=== PATIENT | female | born 1945 | race Caucasian/White ===

== ENCOUNTER 2018-10-06 17:50 | Inpatient (IN) ==
[2018-10-06] MEDS ORDERED: *HR* Heparin 5,000 UNIT/ML VIAL IVP ONE (18:14)
[2018-10-06] MEDS ORDERED: *HR* Heparin 5,000 UNIT/ML VIAL IVP PRN ×2 (18:14)
[2018-10-06] MEDS ORDERED: Heparin 25,000 UNIT/250 ML D5W 25,000 UNIT/250 ML IV.SOLN IVC SCH (18:15)
[2018-10-06] MEDS ORDERED: *HR* Ticagrelor 90 MG TABLET PO ONE (18:16)
--- NOTE | 2018-10-06 18:19 | Emergency Department Note ---
Disposition Clinical Impression: ST elevation myocardial infarction (STEMI) Qualifiers: Involved coronary artery: right coronary artery Qualified Code(s): I21.11 - ST elevation (STEMI) myocardial infarction involving right coronary artery Disposition: Admitted As Inpatient Condition: Serious General Adult HPI - General Chief complaint: ED Chest Pain Stated complaint: Chest Pain Time Seen by Provider: 10/06/18 17:57 Source: patient, EMS Limitations: no limitations Nursing Notes Reviewed: Yes Vital Signs Reviewed: Yes - History of Present Illness HPI Narrative: Patient presents with chest pain and this is a combination of sharp and dull and pressure sensation which began at 3:30 and then increased in severity and is constant with radiation to the left shoulder and the back and initially did have diaphoresis. No exertional component. Does have associated lightheadedness. No pleuritic aspect. No pain or swelling of the lower extremities beyond her normal left lower extremity pain from her sciatica. She does have 2 heart stents and atrial fibrillation and does use xarelto but the last dose she took was last night. She is here with her [id number]. Social history: No . I do not find old EKGs that I can compare it to 1818 Pain Scale: 10 - Related Data Allergies Allergy/AdvReac Type Severity Reaction Status Date / Time doxycycline Allergy See Verified 10/06/18 18:12 Comments All systems ED: reviewed and negative except as stated. Past Medical History - Past Medical History Medical history: Reports: other Psychiatric history: Reports: no psych history - Social History Smoking Status: Never smoker Smokeless Tobacco Status: No Alcohol use: Reports: none Drug use: Reports: none Physical Exam CONSTITUTIONAL: Well-appearing; well-nourished; A&O X 3, in no apparent distress HEAD: Normocephalic; atraumatic EYES: PERRL, no scleral icterus NOSE: The nose is normal in appearance without rhinorrhea NECK: No JVD or distended neck veins RESP: Normal chest excursion with respiration; breath sounds clear and equal bilaterally; no wheezes, rhonchi, or rales CARD: Regular rhythm, without murmurs, rub or gallop ABD: Non-distended; non-tender, soft, without rigidity, rebound or guarding,no pulsatile mass CHEST: + pain with palpation left chest wall which does cause facial wincing SKIN: Normal for age and race; warm and dry without diaphoresis ; no apparent lesions EXTREMITIES: Pulses are 2 plus and equal times 4 extremities, she does have bilateral symmetric lower extremity, peripheral edema but there is no calf muscle pain - General Limitations: no limitations General appearance: alert, in no apparent distress Course Vital Signs Temperature 97.6 F 10/06/18 18:03 Pulse Rate 48 10/06/18 18:03 Respiratory Rate 21 10/06/18 18:03 Blood Pressure 129/106 10/06/18 18:03 O2 Sat by Pulse Oximetry 99 10/06/18 18:03 Temperature 97.6 F 10/06/18 18:03 Pulse Rate 74 10/06/18 21:55 Respiratory Rate 13 10/06/18 18:56 Blood Pressure 129/70 10/06/18 18:56 O2 Sat by Pulse Oximetry 99 10/06/18 18:56 Oxygen Delivery Oxygen Delivery Room Air Medical Decision Making - MDM Narrative Medical decision making narrative: Patient does have ill appearance, I did review the EKG as well as the pre- arrival EKG and there is ST elevation inferiorly as well as what looks like the beginning of some reciprocal change and coupled with the patient's bradycardia with a familia of 44 bpm this is concerning for inferior ischemia. When I left the room I did call Dr. Fernando Savage, the psychiatry instructor and he agrees this is concerning and we spoke about the patient at 6:06 PM. The patient will go to the Tobacco [facility] and I did go back and see her again and informed her about this. Initial heart rate was 41 bpm and the repeat heart rate is 49 bpm. We do have the crash cart the bedside. The patient does xarelto however the last dose was last night so likely this effect is mostly worn off and the patient based on my conversation with Dr. Fernando Savage, will give Plavix 300 mg by mouth Brilinta 100 mg by mouth and low-dose heparin 1820 Patient has had episodes of bradycardia in the 30s and EKG was repeated and at 6:30 PM does show increased [address] elevation inferiorly with some reciprocal change and does look like a junctional bradycardia. The patient is awaiting transfer to the catheter lab. We do have pacer pads on the patient. Her blood pressure has decreased and is now 113 systolic and she is receive a 1 L IV fluid bolus. I have checked on her multiple times. 183 - Medical Records Medical records reviewed: Yes I reviewed the patient's medical records. - Lab Data Lab results reviewed: Yes I reviewed the patient's lab results. Result diagrams: 10/06/18 18:13 10/06/18 18:13 Lab Results 10/06/18 10/06/18 10/06/18 Range/Units 18:13 18:13 18:13 WBC 7.0 (4.3-11.1) K/mcL RBC 4.73 (3.82-4.97) M/mcL Hgb 13.5 (11.5-15.4) g/dL Hct 41.9 (35.3-44.9) % MCV 88.6 (83.0-100.0) fL MCH 28.5 (28.0-33.3) pg MCHC 32.2 (31.6-35.5) g/dL RDW 14.7 H (11.5-14.5) % Plt Count 260 (140-400) K/mcL MPV 9.5 (9.4-12.4) fL Immature Gran % 0.3 (0-4) % Seg Neutrophils % 67.9 % Lymphocytes % 20.4 % Monocytes % 7.1 % Eosinophils % 3.3 % Basophils % 1.0 % Neutrophils # 4.8 (1.6-8.9) K/mcL Lymphocytes # 1.4 (0.6-4.6) K/mcL Monocytes # 0.5 (0.0-1.3) K/mcL Eosinophils # 0.2 (0.0-0.6) K/mcL Basophils # 0.1 (0.0-0.2) K/mcL PT 10.5 (9.4-12.1) Seconds INR 0.9 APTT 29.8 (26.0-36.0) Seconds Heparin Anti-Xa, Unfract 0.07 L (0.30-0.70) IU/mL Sodium 133 L (136-145) mEq/L Potassium 4.1 (3.5-5.1) mEq/L Chloride 97 L (98-107) mEq/L Carbon Dioxide 25 (23-29) mEq/L BUN 35 H (8-23) mg/dL Creatinine 1.53 H (0.60-1.20) mg/dL Est GFR ( Amer) 41 L (> 60) Est GFR (Non-Af Amer) 33 L (> 60) BUN/Creatinine Ratio 23 (6-26) Glucose 228 H (70-105) mg/dL Calculated Osmolality 291 (280-300) Calcium 9.4 (8.6-10.3) mg/dL Troponin I < 0.03 (< 0.04) ng/mL
[2018-10-06 18:34] LABS: Basophils # 0.1 K/mcL (0.0-0.2); Eosinophils # 0.2 K/mcL (0.0-0.6); Eosinophils % 3.3 %; Hematocrit 41.9 % (35.3-44.9); Hemoglobin 13.5 g/dL (11.5-15.4); Immature Granulocytes % 0.3 % (0-4); Lymphocytes # 1.4 K/mcL (0.6-4.6); Lymphocytes % 20.4 %; Mean Corpuscular HGB Conc 32.2 g/dL (31.6-35.5); Mean Corpuscular Hemoglobin 28.5 pg (28.0-33.3); Mean Corpuscular Volume 88.6 fL (83.0-100.0); Mean Platelet Volume 9.5 fL (9.4-12.4); Monocytes # 0.5 K/mcL (0.0-1.3); Monocytes % 7.1 %; Neutrophils # 4.8 K/mcL (1.6-8.9); Platelet Count 260 K/mcL (140-400); Red Blood Count 4.73 M/mcL (3.82-4.97); Red Cell Distribution Width 14.7 % (11.5-14.5); Segmented Neutrophils % 67.9 %
[2018-10-06] MEDS ORDERED: 0.9 % Sodium Chloride 1,000 ML IVC ONE (18:36)
[2018-10-06] MEDS ORDERED: Nitroglycerin 1,000 MCG/10 ML VIAL IV ONE (18:40)
[2018-10-06] MEDS ORDERED: *HR* Heparin 10,000 UNIT/10 ML VIAL ONE ×2 (18:40→20:02)
[2018-10-06] MEDS ORDERED: Heparin 1,000 UNITS/500 mL 500 ML ONE (18:40)
[2018-10-06] MEDS ORDERED: 0.9 % Sodium Chloride 1,000 ML ONE ×2 (18:40→20:03)
[2018-10-06] MEDS ORDERED: ISOVUE-370 200 ML INFUS..BTL ONE (18:40)
[2018-10-06 18:41] LABS: Heparin anti-factor XA UFH 0.07 IU/mL (0.30-0.70)
[2018-10-06] MEDS ORDERED: Verapamil 5 MG/2 ML VIAL ONE (18:41)
[2018-10-06 18:42] LABS: INR 0.9; Prothrombin Time 10.5 Seconds (9.4-12.1)
[2018-10-06 18:44] LABS: Activated Partial Thrombo Time 29.8 Seconds (26.0-36.0)
[2018-10-06 18:55] LABS: BUN/Creatinine Ratio 23 (6-26); Blood Urea Nitrogen 35 mg/dL (8-23); Calcium 9.4 mg/dL (8.6-10.3); Carbon Dioxide 25 mEq/L (23-29); Chloride 97 mEq/L (98-107); Glucose 228 mg/dL (70-105); Osmolality,Calculated 291 (280-300); Potassium 4.1 mEq/L (3.5-5.1); Sodium 133 mEq/L (136-145); Troponin I < 0.03 ng/mL (< 0.04); eGFR For Non-African Americans 33 (> 60)
[2018-10-06] MEDS ORDERED: *HR* Midazolam HCl 2 MG/2 ML VIAL ONE ×2 (19:13→19:39)
[2018-10-06] MEDS ORDERED: *HR* FentaNYL (PF) 100 MCG/2 ML VIAL ONE ×2 (19:13→19:59)
[2018-10-06] MEDS ORDERED: *HR* Atropine Sulfate 1 MG/10 ML SYRINGE ONE (19:27)
[2018-10-06] MEDS ORDERED: *HR* FentaNYL (PF) 100 MCG/2 ML VIAL IVP ONE (20:44)
[2018-10-06 23:04] LABS: Albumin 3.8 g/dL (3.5-5.7); Albumin/Globulin Ratio 1.4 (1.1-2.2); Bilirubin,Direct 0.1 mg/dL (0.0-0.2); Bilirubin,Indirect 0.6 mg/dL (0.0-1.2); Bilirubin,Total 0.7 mg/dL (0.3-1.0); Globulin 2.7 g/dL (2.4-3.5); Total Protein 6.5 g/dL (6.4-8.9); Troponin I 0.41 ng/mL (< 0.04)
[2018-10-07] MEDS ORDERED: *HR* Atropine Sulfate 1 MG/10 ML SYRINGE ONE (00:51)
[2018-10-07 01:21] LABS: Basophils % 0.5 %; Eosinophils % 0.3 %; Hematocrit 39.2 % (35.3-44.9); Hemoglobin 12.6 g/dL (11.5-15.4); Immature Granulocytes % 0.2 % (0-4); Lymphocytes # 0.8 K/mcL (0.6-4.6); Lymphocytes % 12.4 %; Mean Corpuscular HGB Conc 32.1 g/dL (31.6-35.5); Mean Corpuscular Hemoglobin 28.4 pg (28.0-33.3); Mean Corpuscular Volume 88.3 fL (83.0-100.0); Mean Platelet Volume 9.2 fL (9.4-12.4); Monocytes # 0.3 K/mcL (0.0-1.3); Monocytes % 4.4 %; Neutrophils # 5.4 K/mcL (1.6-8.9); Platelet Count 215 K/mcL (140-400); Red Blood Count 4.44 M/mcL (3.82-4.97); Red Cell Distribution Width 14.8 % (11.5-14.5); Segmented Neutrophils % 82.2 %
[2018-10-07 01:39] LABS: Chol/HDL Ratio 4.9 (0-4.9); Potassium 3.8 mEq/L (3.5-5.1)
[2018-10-07] MEDS ORDERED: 0.9 % Sodium Chloride 500 ML ONE ×2 (02:38→03:07)
[2018-10-07] MEDS ORDERED: *HR* FentaNYL (PF) 100 MCG/2 ML VIAL ONE (02:48)
[2018-10-07] MEDS ORDERED: *HR* Midazolam HCl 5 MG/5 ML VIAL IVP ONE ×2 (02:50→04:14)
[2018-10-07] MEDS: Norepinephrine 4 MG in D5% in Water 250 ML IVC SCH (02:57)
[2018-10-07] MEDS ORDERED: 0.9 % Sodium Chloride 1,000 ML ONE (02:58)
[2018-10-07] MEDS ORDERED: *HR* Heparin 10,000 UNIT/10 ML VIAL ONE (02:58)
[2018-10-07] MEDS ORDERED: Nitroglycerin 1,000 MCG/10 ML VIAL IV ONE (02:58)
[2018-10-07] MEDS ORDERED: ISOVUE-370 200 ML INFUS..BTL ONE (02:58)
[2018-10-07] MEDS ORDERED: Heparin 1,000 UNITS/500 mL 500 ML ONE (02:58)
[2018-10-07] MEDS: FentaNYL (PF) 1,000 MCG in 0.9 % Sodium Chloride 80 ML IVC SCH ×3 (03:02→17:30)
[2018-10-07 03:08] LABS: Basophils % 0.5 %; Eosinophils % 0.2 %; Hematocrit 35.5 % (35.3-44.9); Hemoglobin 11.3 g/dL (11.5-15.4); Immature Granulocytes % 0.4 % (0-4); Lymphocytes # 2.4 K/mcL (0.6-4.6); Lymphocytes % 27.6 %; Mean Corpuscular HGB Conc 31.8 g/dL (31.6-35.5); Mean Corpuscular Hemoglobin 28.3 pg (28.0-33.3); Mean Platelet Volume 9.5 fL (9.4-12.4); Monocytes # 0.6 K/mcL (0.0-1.3); Monocytes % 7.1 %; Neutrophils # 5.5 K/mcL (1.6-8.9); Platelet Count 251 K/mcL (140-400); Red Blood Count 3.99 M/mcL (3.82-4.97); Red Cell Distribution Width 14.6 % (11.5-14.5); Segmented Neutrophils % 64.2 %
--- NOTE | 2018-10-07 03:51 | Event Note ---
Addendum entered and electronically signed by Chan Rosado DO 10/07/18 04:21: Note that patient was given 7 mg of Versed and 20 mg of etomidate for sedation prior to intubation. Patient also received 2 separate 100 g pushes of fentanyl for sedation as well. Original Note: Date of Encounter: 10/07/18 Time of Encounter: 03:49 Patient reported having nausea, and then went into asystole. Patient received approximately 30 seconds of chest compressions by nursing. She did not receive any medications at that time. Patient had ROSC. Drs. Agudelo, Pablo, Lawrence at bedside. Patient would become bradycardic. Patient was given 1 mg of atropine. She responded slightly, but again became bradycardic and hypotensive. Patient was also given 20 g of epinephrine. I spoke with the mill beam fitter, Dr. Savage regarding patient's care as patient was having unstable bradycardia. He immediately came in and evaluated the patient while the catheterization lab was being assembled for placement of transvenous pacer. Patient's consciousness waxed and waned and there was concern that she did not have the ability to protect her airway. I intubated patient using Versed and fentanyl as sedation. No paralytic was used. Also placed a left internal jugular central line. Chest x-ray did not reveal any complications from the procedure. Patient was started on dopamine and levophed to maintain a map greater than 65. Levophed weaned off. There was also a right femoral hematoma from where the from oral sheath was placed. Pressure was provided at that site. Due to concern for anemia secondary to bleed, patient was transfused 1 unit emergently and has one unit available if needed. A STAT hemoglobin and hematocrit was sent. The results are not back yet. Patient to Compliance Analyst for placement of transvenous pacer. Procedures - Arterial Line Size (Gauge): 20 Technique Used: guide wire technique Post-Procedure: line sutured into place, line taped into place, dry sterile dressing placed Patient Tolerated Procedure: well, no complications Complications: none Site: left, radial Additional Comments: Dr. Bravo performed procedure under my observation with Dr. Agudelo as well - Central Line Placement Left IJ Central Line Inserted*: Yes Central Line Catheter Replacement*: Yes Central Line Insertion: emergent Procedural Pause: assemble equipment and verify supplies, perform hand hygiene Patient Placed on Monitor/Pulse Ox: Yes During the Procedure: clinician is wearing sterile gloves, cap, mask,& gown during insertion, sterile field and sterile technique are maintained Central Line Prep: Povidone-Iodine 1% Prep the Procedure Site: allow prep to dry Ultrasound Used for Placement: Yes Central Line Lumen Inserted: triple Post Procedure: sutured in place, good blood return, all ports aspirated, flushed, capped, sterile dressing applied, guide wire removed and visualized Post Procedure X-Ray: tip of catheter in good position, no pneumothorax seen Patient Tolerated Procedure: well, no complications Complications: none Name of Clinician Inserting Central Line: Dr. Chan Rosado Clinician Assisting/Completing Checklist: Dr. Agudelo Date: 10/07/18 - Intubation sedative: Versed Laryngoscope: William ET Tube Size: 7.5 ET Tube Uncuffed: No Tube Secured Location: lips (22) Tube Placement Confirmation: visualized tube passing through cords, equal breath sounds bilaterally, no breath sounds over epigastrium, confirmation by capnometry Patient Tolerated Procedure: well, no complications
[2018-10-07] MEDS ORDERED: *HR* FentaNYL (PF) 100 MCG/2 ML VIAL IVP ONE ×2 (04:15→04:16)
[2018-10-07] MEDS ORDERED: *HR* Etomidate 20 MG/10 ML AMPUL IVP ONE (04:15)
[2018-10-07] MEDS ORDERED: Artificial Tears SOLN 15 ML BOTTLE BOTH EYES PRN (05:03)
--- NOTE | 2018-10-07 05:05 | Invasive Diagnostic Lab Proc ---
Name: Ellen Jeter Date of Study: 10/07/2018 Date: 1945 Ht: 66.0in Medical Record#: [id number] Age: 73 Wt: 377.87lb Gender: Female BSA: 2.62 Order #: [id number] BMI: 61.02 Physicians Procedure Physician: Fernando Savage MD Referring MD: Referring MD: Staff Name Position Time In Torsten Sergo RN Monitor 04:15 AM Cary Mccann RN Evidence Specialist 04:15 AM Nicole Do RT (R) Scrub 04:15 AM Procedures Performed Procedure INS/RPL TEMP PM LEAD/CATH;SNGL Pre-Procedure Checklist Informed consent is complete signed and on chart. H&P is on chart. ID band is on and ID verified with patient. Patient NPO for procedure The procedure was described for the patient and questions were answered. Blood Pressure: 105/81 ECG is on chart. Rhythm: Sinus Bradycardia Plan of Care Patient will tolerate the procedure without complications. Adequate level of comfort will be maintained. Hemodynamics will remain stable Patient will recover from procedure without complications. Respiratory function will be maintained. Cardiac rhythm will remain stable. Patient temperature will be maintained. Patient and/or family have verbalized understanding of the procedure. Patient Education Developmentally Appropriate for Age: No Education Needs: Procedure Note: Pt intubated. Intravenous Access Time IV Size Location DC'd Fluid/Drip Rate Units RN Lt Jugular 20g 1 1/4" Patent On Arrival Rt Antecubital 20g 1 1/4" Patent On Arrival Lt Antecubital Allergies doxycycline Vital Signs Time BP (mmHg) HR (bpm) O2 Sat. RR (bpm) LOC 04:18 AM / % 0 = No reflexes elicited 04:18 AM / % 0 = No reflexes elicited 04:41 AM 115 / 45 97 95 % 19 04:18 AM 97 / 47 93 97 % 48 04:21 AM 101 / 47 93 97 % 18 04:26 AM 98 / 56 92 93 % 14 04:31 AM 97 / 53 92 96 % 18 04:36 AM 106 / 49 85 93 % 20 Procedural Medications Time Medication Dose Units Method Given By 04:18 AM versed 2 mg/hr Intravenous 04:19 AM fentanyl 150 mcg/hr Intravenous 04:19 AM Dopamine 10 mcg/kg/min Intravenous 04:23 AM Lidocaine 2% 1 ml Subcutaneous Fernando Savage MD Hermilo Score Preprocedure Postprocedure Activity 0- Unable to move extremities or lift head Activity 0- Unable to move extremities or lift head Circulation 2- SBP +/= 20 points of pre-anesthetic level Circulation 2- SBP +/= 20 points of pre-anesthetic level Consciousness 0- Non-responsive Consciousness 0- Non-responsive O2 Saturation 1- Needs O2 inhalation to maintain O2 saturation of 90% O2 Saturation 1- Needs O2 inhalation to maintain O2 saturation of 90% Respiratory 0- Apneic requires ventilator or assisted respiration Respiratory 0- Apneic requires ventilator or assisted respiration Total Score 3 Total Score 3 Contrast Agent: Isovue Diagnostic Contrast: 0 ml Fluoro Dose: 1 mGy Procedure Log Time Note Enter By 04:15 AM Pt arrived to public works laborer 1 at 04:15 [facility] 04:15 AM Sergo Sarmiento RN Position: Monitor Time in: 04:15 [facility] 04:15 AM Cary Mccann RN Position: Evidence Specialist Time in: 04:15 [facility] 04:15 AM Nicole Do RT (R) Position: Scrub [facility] 04:15 AM Vitals capture started with the following parameters, Patient=Adult, Interval=5 min, Initial Nptcfnmk=970 mmHg, Deflation Rate=3 mmHg, Cuff placed on Right Arm 04:18 AM Physician [facility] 04:18 [facility] AM Meet and greet completed [facility] 04:18 AM Sign in performed according to hospital policy. Informed consent was obtained. [facility] 04:18 AM Procedure [email or web address] Time: 04:18 Patient comfortable and pain free: Yes jcallan 04:18 AM Time: 04:18LOC: 0 = No reflexes elicited [email or web address] 04:18 AM HR=93 bpm, NIBP=97/47 mmhg, SpO2=97.0 %, Resp=48 B/min, Comment=nsr 04:19 AM Patient arrived at 04:18 with versed Intravenous drip @ 2 mg/hr [email or web address] 04:19 AM Patient arrived at 04:19 with fentanyl Intravenous drip @ 150 mcg/hr [email or web address] 04:20 AM Patient arrived at 04:19 with Dopamine Intravenous drip @ 10 mcg/kg/min [email or web address] 04:21 AM HR=93 bpm, GTQV=789/47 mmhg, SpO2=97.0 %, Resp=18 B/min, Comment=nsr 04:22 AM Hair removed from procedure site in procedure lab using clippers. Right neck prepped with Chloraprep by Nicole Do ([place]), then patient was draped. Skin intact. jc 04:23 AM Time out was performed according to hospital policy. Conscious sedation and anesthesia was achieved (see medication log with in this report above) jc 04:24 AM Time: 04:23 1 ml Lidocaine 2% to right jugular Subcutaneous Given by Fernando Savage MD 04:26 AM Micro-Introducer Kit utilized for sheath placement jc 04:26 AM HR=92 bpm, NIBP=98/56 mmhg, SpO2=93.0 %, Resp=14 B/min, Comment=nsr 04:29 AM Access obtained by percutaneous puncture. 6Fr 11cm [facility] Ciro Ultimum sheath placed in right jugular vein. [id number] 04:30 AM PstProc:Bard Bipolar Pacing Catheter Temp pacer inserted into right jugular vein [email or web address] 04:31 AM PstProc: Sheath(s) sutured in due to Temporary Pacer. 04:31 AM HR=92 bpm, NIBP=97/53 mmhg, SpO2=96.0 %, Resp=18 B/min, Comment=nsr 04:34 AM Time: 04:18LOC: 0 = No reflexes elicited jc:34 AM Time: 04:18 Patient comfortable and pain free: Yes [facility] 04:34 AM PstProc: Temp pacer on. jc 04:35 AM PstProc: Temp pacer turned on, rate 60 ppm, mA 2.0, jcallihan 04:36 AM PstProc: Pacer is inserted at 32 cm [facility] 04:36 AM HR=85 bpm, ZOUT=842/49 mmhg, SpO2=93.0 %, Resp=20 B/min, Comment=nsr 04:36 AM Procedure completed at 04:36 10/07/2018 [email or web address] 04:40 AM Sign out completed: Radiation Dose 9.15 mGy, 1.35 Gy/cm2 Fluoro Time: 0.3 Isovue 370 - 200ml contrast 0 ml given by Fernando Savage MD. Complications: None. The patient was discharged out of the phlebotomist lab assistant in stable condition. Sedation minutes 18. Cardiac Rehab Consult needed: Yes. Confirmed administered medications: Yes [email or web address] 04:41 AM HR=97 bpm, OGUC=936/45 mmhg, SpO2=95.0 %, Resp=19 B/min, Comment=nsr 04:42 AM Estimated Blood Loss: minimal jcallihan 04:43 AM Post ECG NSR [email or web address] 04:43 AM Post Blood Pressure 115/45 [email or web address] 04:43 AM 04:43 Post Pulses Bilateral DP 2+ [email or web address] 04:43 AM 04:43 Post Pulses Bilateral radial 2+ [email or web address] 04:43 AM Education needs Procedure, Plan of Care, and Responsibilities of Patient in Care [email or web address] 04:43 AM Learning barriers :Sedated jcallihan 04:43 AM Education Methods Verbal jcallihan 04:44 AM Education evaluation Not ready to learn jcallihan 04:44 AM Site status No bleeding/hematoma - Rt jugular as reported by Nicole Do RT (R) at 04:44 [email or web address] 04:44 AM Opsite applied jcallihan 04:44 AM Report given to Toma RENE Pt taken to ICU Room #1. 04:44 [email or web address] 04:44 AM Complications: None [email or web address] 04:44 AM Patient out of room: 04:44 jcallihan 04:46 AM Sign in performed according to hospital policy. Informed consent was obtained. [facility] Complications Complication None None Hemodynamics Post Procedure Information Blood Pressure: 115/45 mmHg Rhythm: NSR Post procedural instructions were given Closure Device Time Device Success/Fail Manual Compression Site Checks Time Location Status Staff Sheath In? Note 04:44 AM Rt jugular No bleeding/hematoma Nicole Do RT (R) Pulses Time Site Pre-Procedure Post-Procedure Note Bilateral radial 2+ Bilateral DP 2+ 4:43:00 AM Bilateral DP 2+ 4:43:00 AM Bilateral radial 2+ Updated by Sergo Sarmiento RN on 10/07/2018 4:53:57 AM electronically signed on 10/07/2018 4:56:09 AM with status of Final
[2018-10-07 05:19] LABS: ABG Base Excess -3 mEq/L (-2 to 3); ABG HCO3 24 mEq/L (21-27); ABG Oxygen Saturation 93 % (95-98); ABG PCO2 50 mmHg (35-45); ABG PH 7.29 pH Units (7.32-7.45); ABG PO2 76 mmHg (85-104); ABG TCO2 26 mEq/L (20-26); Blood Gas Modality PRVC; Blood Gas PEEP 5 cm H2O; Blood Gas Respiration Rate 14; Blood Gas VT 450 cc
--- NOTE | 2018-10-07 06:45 | Pulmonology Consult Note ---
<Chino Diehl S - Last Filed: 10/07/18 12:20> Date of Encounter: 10/07/18 Time of Encounter: 08:19 Assessment and Plan (1) ST elevation myocardial infarction (STEMI) Current Visit: Yes Status: Acute Pt presented overnight and was taken emergently to the cath lab manager where she was found to have 100% stenosis of the RCA, 80% stenosis of the mid circumflex - she had an episode of asystole, required ~30 seconds of chest compressions and was given 1x epinephrine - the pt was then intubated for inability to protect her airway - pt does have hx 2 previous stents CXR showed Appropriate endotracheal tube positioning, appropriate percutaneous trans venous single lead pacemaker positioning, Fluctuating basilar atelectasis, small left effusion. ABG this morning: pH 7.34, pCO2 44, pO2 127, HCO3 24 Vent settings: RR 16, FiO2 50, PEEP 5, TV [address] elevation inferiorly - she was given a dose of plavix and brillenta followed by low dose heparin protocol in the ER Plan: - palliative consulted for goals of care - cardiology consulted, awaiting reocmmendations pt paced at 80bpm, any time it goes lower than this there are spiked on T's inserted to the right - continue lopressor, aspirin, plavix and lipitor - pt currently on levophed 5mcg for hypotension - continue sedation with versed and fentanyl - daily ABG - ECHO pending Qualifiers: Involved coronary artery: right coronary artery Qualified Code(s): I21.11 - ST elevation (STEMI) myocardial infarction involving right coronary artery (2) Goals of care, counseling/discussion Current Visit: Yes Status: Acute Spoke with granddaughter at bedside with attending. She states her father is the MPOA but he is in [place] for work and will not be able to make it here. The grandmother apperently does have advanced directives at home, however, they are not sure where they are. Granddaughter does state that the pt would like to be a DNR but isn't sure about her thoughts regarding short-term intubation. Did inform the granddaughter that the pt had an episode of asystole overnight and that she required compressions, granddaughter said no further compressions for the pt. She is also unsure of how aggressive the pt will want to be regarding the pacing and cardiology recommendations. Palliative care has been consulted, spoke to Halima Khanna ACID SUPERVISOR who will be in later to see the patient. For now CODE STATUS will be DNR-CCA. (3) Morbid obesity Current Visit: Yes Status: Acute chronic, BMI 59 (4) Elevated troponin Current Visit: Yes Status: Acute 0.3 --> .41 --> 3.01 - likely type 1 (5) TATYANA (acute kidney injury) Current Visit: Yes Status: Acute Creatinine 1.53 on admission, currently 1.34 with morning labs. Improving. Continue I&O, pretty cath. (6) CAD (coronary artery disease) Current Visit: Yes Status: Acute Continue aspirin, lipitor, plavix, and lopressor as per cardiology recommendations. Qualifiers: Coronary Disease-Associated Artery/Lesion type: unspecified vessel or lesion type [place] vs. transplanted heart: unspecified whether [place] or transplanted heart Associated angina: angina presence unspecified Qualified Code(s): I25.10 - Atherosclerotic heart disease of [place] coronary artery without angina pectoris (7) DVT prophylaxis Current Visit: Yes Status: Acute scd (8) A-fib Current Visit: No Status: Chronic Pt has hx of a fib, on xarelto Qualifiers: Atrial fibrillation type: unspecified Qualified Code(s): I48.91 - Unspecified atrial fibrillation History of Present Illness Consult date: 10/07/18 Requesting physician: Chino Diehl Reason for consult: other (critical care, ventilator management) Chief complaint: STEMI History of present illness: Mrs. Jeter is a 73yo female with PMH of CAD, a fib on eliquis, and morbid obesity who was admitted overnight over a STEMI. She initially presented as per the ED notes with chest pain that was sharp and dull, pressure like and began around 0330 AM, which increased in severity. Radiation to the left shoulder/back. She reported diaphoresis to ER physician. She has a past hx of 2 stents and is on xarleto for a fib. She was found to have a right inferior DC as evidenced by EKG and was brought emergently to the cath lab manager for stent to the RCA. She was then brought to ICU and was found to be in asystole and received ~30 seconds of chest compressions and one round of epinephrine. She had ROSC but was lately intubated for inability to control airway and waxing and waning mental status. She also had to be paced overnight and had a temporary pacer inserted. She is seen at bedside this morning and is still intubated. Family is at bedside and they state she would want to be a DNR and have no further compressions given. She has advanced directives but they are at home and the family is unsure of the exact specifics. The patient appears comfortable and is sedated. ROS in unobtainable due to mental status. All information is gathered from ER documents, ICU overnight resident, nursing staff. Past Med Surg Social Fam HX - Past Medical History Medical history: other Additional medical history: home o2 but doesn't know why Psychiatric history: no psych history - Past Surgical History Surgical History: angioplasty/stent, other, vascular surgery Additional surgical history: D&C - Social History Smoking Status: Never smoker Smokeless Tobacco Status: No Alcohol use: none Drug use: none Medications and Allergies Allergy/AdvReac Type Severity Reaction Status Date / Time doxycycline Allergy See Verified 10/06/18 18:12 Comments ROS unobtainable: due to endotracheal tube All Systems: The remainder of the systems were reviewed and are negative Physical Examination Vital Signs: Vital Signs, Last 4 Hours Temp Pulse Resp BP Pulse Ox Pulse Ox 10/07/18 06:00 73 16 135/60 99 10/07/18 05:25 19 142/63 96 10/07/18 05:00 80 16 99/50 98 10/07/18 04:39 70 10/07/18 04:00 97.1 F L 109 16 98/68 97 10/07/18 03:19 18 99 Ventilator Settings Ventilator Settings: Ventilator Settings, Last 8 Hours Ventilator Tidal Volume 450 Setting Ventilator Tidal Volume 450 Setting Ventilator Tidal Volume 450 Setting Ventilator Tidal Volume 450 Setting Ventilator Tidal Volume 450 Setting Ventilator Respiratory Rate 16 Setting Ventilator Respiratory Rate 16 Setting Ventilator Respiratory Rate 14 Setting Ventilator Respiratory Rate 16 Setting Ventilator Respiratory Rate 14 Setting Actual Respiratory Rate 16 Actual Respiratory Rate 16 Actual Respiratory Rate 16 Actual Respiratory Rate 18 Positive End Expiratory 5 Pressure Positive End Expiratory 5 Pressure Positive End Expiratory 5 Pressure Positive End Expiratory 5 Pressure Positive End Expiratory 5 Pressure Peak Inspiratory Airway 19 Pressure Peak Inspiratory Airway 18 Pressure Peak Inspiratory Airway 19 Pressure Peak Inspiratory Airway 20 Pressure Results - Laboratory Findings CBC and BMP: 10/07/18 02:25 10/07/18 01:00 ABG ABG pH 7.29 pH Units (7.32-7.45) L 10/07/18 05:15 ABG pCO2 50 mmHg (35-45) H 10/07/18 05:15 ABG pO2 76 mmHg (85-104) L 10/07/18 05:15 ABG O2 Saturation 93 % (95-98) L 10/07/18 05:15 PT/INR, D-dimer PT 10.5 Seconds (9.4-12.1) 10/06/18 18:13 Abnormal lab findings: Abnormal lab results Hgb 11.3 g/dL (11.5-15.4) L 10/07/18 02:25 RDW 14.6 % (11.5-14.5) H 10/07/18 02:25 Heparin Anti-Xa, Unfract 0.07 IU/mL (0.30-0.70) L 10/06/18 18:13 ABG pH 7.29 pH Units (7.32-7.45) L 10/07/18 05:15 ABG pCO2 50 mmHg (35-45) H 10/07/18 05:15 ABG pO2 76 mmHg (85-104) L 10/07/18 05:15 ABG O2 Saturation 93 % (95-98) L 10/07/18 05:15 ABG Base Excess -3 mEq/L (-2 to 3) L 10/07/18 05:15 BUN 33 mg/dL (8-23) H 10/07/18 01:00 Creatinine 1.34 mg/dL (0.60-1.20) H 10/07/18 01:00 Est GFR ( Amer) 47 (> 60) L 10/07/18 01:00 Est GFR (Non-Af Amer) 39 (> 60) L 10/07/18 01:00 Glucose 187 mg/dL (70-105) H 10/07/18 01:00 POC Glucose 190 mg/dL (70-99) H 10/06/18 21:33 Alkaline Phosphatase 162 Units/L (34-104) H 10/06/18 21:52 Troponin I 3.01 ng/mL (< 0.04) H* 10/07/18 02:25 LDL Cholesterol, Calc 131 mg/dL (0-99) H 10/07/18 01:00 - Clinical Findings Intake & Output: Intake & Output 10/06/18 10/06/18 10/07/18 15:59 23:59 07:59 Intake Total 347 / 347 Output Total 250 / 250 1100 / 1100 Balance -250 / -250 -753 / -753 Weight 171.004 kg 167.6 kg Consult Discharge Plan - Plan Referrals: NONE,PCP [Primary Care Provider] - <Marco Antonio Thomas W - Last Filed: 10/07/18 18:59> Date of Encounter: 10/07/18 All Systems: The remainder of the systems were reviewed and are negative Physical Examination Vital Signs: Vital Signs, Last 4 Hours Temp Pulse Resp BP Pulse Ox 10/07/18 17:59 70 16 103/53 100 10/07/18 17:05 16 103/53 99 10/07/18 17:00 70 16 122/60 100 10/07/18 16:00 98 F 70 16 127/54 100 10/07/18 15:21 16 122/60 100 10/07/18 15:00 98.0 F 70 16 120/54 100 Ventilator Settings Ventilator Settings: Ventilator Settings, Last 8 Hours Ventilator Tidal Volume 450 Setting Ventilator Tidal Volume 450 Setting Ventilator Tidal Volume 450 Setting Ventilator Tidal Volume 450 Setting Ventilator Tidal Volume 450 Setting Ventilator Tidal Volume 450 Setting Ventilator Tidal Volume 450 Setting Ventilator Tidal Volume 450 Setting Ventilator Tidal Volume 450 Setting Ventilator Tidal Volume 450 Setting Ventilator Tidal Volume 450 Setting Ventilator Tidal Volume 450 Setting Ventilator Respiratory Rate 16 Setting Ventilator Respiratory Rate 16 Setting Ventilator Respiratory Rate 16 Setting Ventilator Respiratory Rate 16 Setting Ventilator Respiratory Rate 16 Setting Ventilator Respiratory Rate 16 Setting Ventilator Respiratory Rate 16 Setting Ventilator Respiratory Rate 16 Setting Ventilator Respiratory Rate 16 Setting Ventilator Respiratory Rate 16 Setting Ventilator Respiratory Rate 16 Setting Ventilator Respiratory Rate 16 Setting Actual Respiratory Rate 16 Actual Respiratory Rate 16 Actual Respiratory Rate 16 Actual Respiratory Rate 16 Actual Respiratory Rate 16 Actual Respiratory Rate 16 Actual Respiratory Rate 16 Actual Respiratory Rate 18 Actual Respiratory Rate 16 Actual Respiratory Rate 16 Actual Respiratory Rate 16 Actual Respiratory Rate 16 Positive End Expiratory 5 Pressure Positive End Expiratory 5 Pressure Positive End Expiratory 5 Pressure Positive End Expiratory 5 Pressure Positive End Expiratory 5 Pressure Positive End Expiratory 5 Pressure Positive End Expiratory 5 Pressure Positive End Expiratory 5 Pressure Positive End Expiratory 5 Pressure Positive End Expiratory 5 Pressure Positive End Expiratory 5 Pressure Positive End Expiratory 5 Pressure Peak Inspiratory Airway 19 Pressure Peak Inspiratory Airway 20 Pressure Peak Inspiratory Airway 20 Pressure Peak Inspiratory Airway 20 Pressure Peak Inspiratory Airway 20 Pressure Peak Inspiratory Airway 22 Pressure Peak Inspiratory Airway 22 Pressure Peak Inspiratory Airway 19 Pressure Peak Inspiratory Airway 24 Pressure Peak Inspiratory Airway 23 Pressure Peak Inspiratory Airway 21 Pressure Peak Inspiratory Airway 22 Pressure Results - Laboratory Findings CBC and BMP: 10/07/18 02:25 10/07/18 01:00 ABG ABG pH 7.34 pH Units (7.32-7.45) 10/07/18 07:47 ABG pCO2 44 mmHg (35-45) 10/07/18 07:47 ABG pO2 127 mmHg (85-104) H D 10/07/18 07:47 ABG O2 Saturation 99 % (95-98) H 10/07/18 07:47 PT/INR, D-dimer PT 10.5 Seconds (9.4-12.1) 10/06/18 18:13 Abnormal lab findings: Abnormal lab results Hgb 11.3 g/dL (11.5-15.4) L 10/07/18 02:25 RDW 14.6 % (11.5-14.5) H 10/07/18 02:25 Heparin Anti-Xa, Unfract 0.07 IU/mL (0.30-0.70) L 10/06/18 18:13 ABG pO2 127 mmHg (85-104) H D 10/07/18 07:47 ABG O2 Saturation 99 % (95-98) H 10/07/18 07:47 BUN 33 mg/dL (8-23) H 10/07/18 01:00 Creatinine 1.34 mg/dL (0.60-1.20) H 10/07/18 01:00 Est GFR ( Amer) 47 (> 60) L 10/07/18 01:00 Est GFR (Non-Af Amer) 39 (> 60) L 10/07/18 01:00 Glucose 187 mg/dL (70-105) H 10/07/18 01:00 POC Glucose 206 mg/dL (70-99) H 10/07/18 10:52 Alkaline Phosphatase 162 Units/L (34-104) H 10/06/18 21:52 Troponin I 3.01 ng/mL (< 0.04) H* 10/07/18 02:25 LDL Cholesterol, Calc 131 mg/dL (0-99) H 10/07/18 01:00 - Clinical Findings Intake & Output: Intake & Output 10/07/18 10/07/18 10/07/18 07:59 15:59 23:59 Intake Total 362 / 362 120 / 120 146 / 146 Output Total 1225 / 1225 300 / 300 Balance -863 / -863 -180 / -180 146 / 146 Weight 167.6 kg - Attending Attestation I examined this patient and my medical decision-making was reviewed with the Resident Physician. I agree with the documented findings, disposition and leo atment plan as described except to the extent set forth below. We independently had [id number] contact with the patient I spent 33min of Critical Care time with this patient. It involved decision making of high complexity to assess, manipulate, and support vital organ system failure and/or to prevent further life threatening deterioration of the patient's condition. The time involved in the performance of separately reportable procedures was not counted toward critical care time. Patient seen and examined at bedside Labs, radiology, chart personally reviewed. Management was reviewed during multidisciplinary critical care rounds. CAPACITY PLANNING MANAGER: Patient is sedated on vent she had altered mental status likely is going to hypotension prior to procedure we will of sedation as clinically stable at this time she is not a candidate for spontaneous awake trial because of active cardiac ischemia and shock Pulm: acute Hypoxic hypercapnic respiratory failure likely secondary to cardiogenic pulmonary edema have adjusted her ventilator settings to improve gas exchange/minute ventilation because of respiratory acidosis. She is not a candidate for spontaneous breathing trial at this time but we will monitor daily Cards: Acute STEMI inferior wall DC status post PCI cardiology following complicated by cardiogenic shock secondary to bradycardia requiring transvenous pacing. Repeat echocardiogram pending appreciate cardiology managing these aspects GI: Continue GI prophylaxis Nutrition: Nothing by mouth for now Renal: UOP Monitored, Cont to Trend sCr and monitor Electrolytes. ID: No clear evidence of infection at this time but will continue to monitor closely she is at high risk for pneumonia Heme/Onc: Mechanical DVT prophylaxis because of recent hematoma continue to monitor H&H Endo: Glucose Monitored Integ/MSK: Skin Care per routine ICU Nursing Protocol to prevent ulcers. Lines: All lines examined without evidence of infection : Dispo: Remain in ICU for critical illness CODE: Patient is DNAR is unclear if she had clearly identified herself as DO NOT INTUBATE prior to being intubated yesterday and this was not addressed prior to intubation with the patient family is attempting to gather her advanced directives from home however they are clear that she did not want to undergo CPR and we have changed her CODE STATUS accordingly we have also consulted palliative care for ongoing goals of care discussion prognosis is guarded
[2018-10-07 07:54] LABS: ABG Base Excess -2 mEq/L (-2 to 3); ABG HCO3 24 mEq/L (21-27); ABG Oxygen Saturation 99 % (95-98); ABG PCO2 44 mmHg (35-45); ABG PH 7.34 pH Units (7.32-7.45); ABG PO2 127 mmHg (85-104); ABG TCO2 25 mEq/L (20-26); Blood Gas Modality AF; Blood Gas PEEP 5 cm H2O; Blood Gas Respiration Rate 16; Blood Gas VT 450 cc
[2018-10-07] MEDS ORDERED: *HR* Norepinephrine 4 MG/4 ML VIAL IVC ONE (08:26)
[2018-10-07] MEDS ORDERED: D5% in Water 250 ML IV BAG IV ONE (08:26)
[2018-10-07] MEDS ORDERED: *HR* EPINEPHrine 1 MG/10 ML SYRINGE IVP ONE (08:26)
[2018-10-07] MEDS ORDERED: *HR* Atropine Sulfate 1 MG/10 ML SYRINGE IV ONE (08:26)
[2018-10-07] MEDS ORDERED: Perflutren Lipid Microsphere 1.3 ML in 0.9 % Sodium Chloride 8.7 ML IVP ONE (08:57)
[2018-10-07] MEDS ORDERED: Perflutren Lipid Microsphere 2 ML VIAL ONE (09:02)
--- NOTE | 2018-10-07 09:47 | Cardiology Progress Note ---
Date of Encounter: 10/07/18 Time of Encounter: 09:00 Assessment and Plan (1) ST elevation myocardial infarction (STEMI) Current Visit: Yes Status: Acute Inferior ST elevation [place] status post UMA to proximal right coronary artery. Ejection fraction 40-45% on echo with mild right ventricular hypokinesis. Continue aspirin 81 mg daily, Plavix 75 mg daily, high intensity statin. Beta marcy on hold because of bradycardia. Qualifiers: Involved coronary artery: right coronary artery Qualified Code(s): I21.11 - ST elevation (STEMI) myocardial infarction involving right coronary artery (2) Bradycardia Current Visit: Yes Status: Acute Bradycardia in the setting of right coronary stenosis. Requiring temporary pacemaker. Continue to pace at 70/m. Avoid AV vijay blocking agents (3) Acute systolic CHF (congestive heart failure), NYHA class 3 Current Visit: Yes Status: Acute Chest x-ray shows mild congestion. Patient with acute systolic CHF. IV Lasix 20 mg daily, strict I and O. (4) Respiratory failure requiring intubation Current Visit: Yes Status: Acute Chest x-ray shows mild congestion. Patient with acute systolic CHF. IV Lasix 20 mg daily, strict I and O. Pulmonary consultation for vent management (5) Paroxysmal A-fib Current Visit: Yes Status: Acute On Xarelto from home. Recommended IV heparin to lower limit of therapeutic PTT, with close monitoring of hemoglobin. No metoprolol as patient is bradycardic Discussion w patient/family: The assessment and plan as outlined above was discussed with the patient and/or family members who expressed understanding and agreement. All questions were answered. Thank you for involving us in the care of your patient. Please call with any questions. Subjective Principal diagnosis: STEMI Interval history: 73-year-old morbidly obese female with history of CAD, paroxysmal fibrillation, admitted last night for inferior wall ST elevation [place], s/post-UMA to proximal RCA. Residual 60-70% lesion in the distal right coronary artery, and 80% mid left circumflex stenosis. She had intermittent episodes of bradycardia last night and also severe vagal reaction during hemostasis for groin hematoma. She is status post temporary pacemaker via right IJ. She was also intubated Objective Vital Signs, Last 4 Hours Temp Pulse Resp BP Pulse Ox 10/07/18 09:00 80 16 130/69 98 10/07/18 08:00 97.6 F 80 16 132/70 98 10/07/18 07:30 80 03/02/19 07:10 16 132/70 99 10/07/18 07:00 80 16 124/68 98 10/07/18 06:59 97.6 F 10/07/18 06:00 73 16 135/60 99 General: Other (Intubated and sedated) HEENT: Atraumatic Neck: Other (Right IJ catheter in place) Cardiac: Normal S1 and S2, Other (Paced rhythm) Lungs: No Wheeze, Rales, Rhonchi Neuro: Other (See dictated) Abdomen: Soft, Other (Right groin ecchymosis but soft) Musculoskeletal: No Chest Wall Tenderness Extremities: No Edema Results 10/07/18 02:25 10/07/18 01:00 Lab Results 10/06/18 10/06/18 10/06/18 18:13 18:13 18:13 WBC 7.0 Hgb 13.5 Hct 41.9 Plt Count 260 INR 0.9 APTT 29.8 Sodium 133 L Potassium 4.1 Chloride 97 L Carbon Dioxide 25 BUN 35 H Creatinine 1.53 H Glucose 228 H Calcium 9.4 Total Bilirubin AST ALT Alkaline Phosphatase Troponin I < 0.03 10/06/18 10/07/18 10/07/18 21:52 01:00 01:00 WBC 6.5 Hgb 12.6 Hct 39.2 Plt Count 215 INR APTT Sodium 138 Potassium 3.8 Chloride 103 Carbon Dioxide 24 BUN 33 H Creatinine 1.34 H Glucose 187 H Calcium 9.0 Total Bilirubin 0.7 AST 17 ALT 11 Alkaline Phosphatase 162 H Troponin I 0.41 H* 10/07/18 10/07/18 02:25 02:25 WBC 8.5 Hgb 11.3 L Hct 35.5 Plt Count 251 INR APTT Sodium Potassium Chloride Carbon Dioxide BUN Creatinine Glucose Calcium Total Bilirubin AST ALT Alkaline Phosphatase Troponin I 3.01 H* Consult Discharge Plan - Plan Referrals: NONE,PCP [Primary Care Provider] -
[2018-10-07] MEDS: Chlorhexidine Rinse 15 ML MOUTHWASH MM SCH ×2 (10:00→20:54)
[2018-10-07] MEDS: Pantoprazole 40 MG VIAL IVP SCH (10:00)
[2018-10-07] MEDS: Artificial Tears SOLN 15 ML BOTTLE BOTH EYES SCH ×4 (10:02→20:54)
[2018-10-07] MEDS: Aspirin 81 MG TAB.CHEW PO SCH (13:16)
--- NOTE | 2018-10-07 13:42 | Palliative - Consult Note ---
Date of Encounter: 10/07/18 Time of Encounter: 13:30 - Assessment and Plan (1) Generalized pain Current Visit: Yes Status: Acute Assessment and plan: Remains on Fentanyl drip per ICU protoco, currently at 100mcg/hr. She appears comfortable. Continue and monitor. (2) Anxiety Current Visit: Yes Status: Acute Assessment and plan: Midolazam drip per ICU protocol. Currently at 4mg/hr. MOnitor (3) Goals of care, counseling/discussion Current Visit: Yes Status: Acute Assessment and plan: Goals of care meeting with patient Jade hui ([id number]), her , Clayton, and the patient's primary POA - son Cosme who was on speakerphone, as he resides in [place]. Cosme's also listened by speakerphone. Cosme is quite ill and unable to travel at this time. Patients in mid August, after a stay here in the ICU. He was liberated from ventilator and a few [facility]. Family discusses still grieving his loss. They state that patient has POA/living will at home - they have been asked to bring in when possible. We do not have those on file in her medical record here, however, all family present state that son is POA. Family also states that she has some form of DNR, but not sure what level she is. Cardiology has been by to speak with family, and I updated Cosme via telephone. She has already been changed to DNR-Arrest, and family in agreement with maintaining. Since patient has already had a cath/stent, and has been intubated, patient son and granddaughter agree that other aggressive care will continue at this time to allow chance for recovery. Son is hoping to be able to travel this was soon, but very ill at this time. Palliative care will continue to follow clinical course and lend supportive as needed. They did ask that they be the only ones to make decisions in patient's care - there are many extended family members, and they do not want them to weigh in on major decisions to be made. (4) ST elevation myocardial infarction (STEMI) Current Visit: Yes Status: Acute Assessment and plan: Cardiology following closely. D/W Dr. Wetzel this am. Qualifiers: Involved coronary artery: right coronary artery Qualified Code(s): I21.11 - ST elevation (STEMI) myocardial infarction involving right coronary artery Palliative-CN HPI - Data of Consult Consult date: 10/07/18 Requesting Physician: Fernando Savage MD Primary Care Provider: PCP NONE - Consult Narrative History of present illness: Ms. Jeter is a 73 year old female who came to ED with c/o chest pain radiating to left shoulder, back and diaphoresis. Symptoms initially started at 1530 yesterday and worsened. She has cardiac hisotry with 2 previous stents. She was foung to have right inferior LA and was urgently taken to [facility]. RCA was 100% blockes and drug eluding stent was placed. Information taken from chart and by granddaughter at bedside. Granddaughter states she did speak with her on phone at [phone] last night, and she was feeling better with no complaints. During the night, she did c/o nausea and went asystole, with ROSC after about 30 seconds of compressions and epinephrine. Her mental status was a ltered, so she was intubated and placed on vent for protection. Temporary pacemaker was placed as well for bradycardia. She has other medical history of afib (on Xarelto), obesity. Upon my visit, pt is sedated and on ventilator with family at bedside. Appears in no distress. On Fentanyl/Versed for sedation while intubated. Cardiology has recently been by to speak with family. Palliative care team has already met this family, as we participated in the patient's care last month. CC: Fernando Savage MD - Time Spent with Patient Time: Total time spent is greater than 50% in coordination of care (as documented) at patient's floor/unit and/or counseling patient: Time with patient: 60 minutes Past Med Surg Social Fam HX - Past Medical History Medical history: other Additional medical history: home o2 but doesn't know why Psychiatric history: no psych history - Past Surgical History Surgical History: angioplasty/stent, other, vascular surgery Additional surgical history: D&C - Social History Smoking Status: Never smoker Smokeless Tobacco Status: No Alcohol use: none Drug use: none Medications and Allergies Allergy/AdvReac Type Severity Reaction Status Date / Time doxycycline Allergy See Verified 10/06/18 18:12 Comments ROS unobtainable: due to endotracheal tube Palliative Care-Exam - Constitutional Vitals: Temp Pulse Resp BP Pulse Ox 97.6 F 70 16 110/55 100 10/07/18 12:00 10/07/18 13:00 10/07/18 13:00 10/07/18 13:00 10/07/18 13:00 General appearance: Present: no acute distress - Head Head Exam: Present: normal inspection, normocephalic - Respiratory Additional comments: Breath sounds course. Anterior lung oliva clear to auscultation. Remains on vent - 50% FiO2 - PEEP 5. - Cardiovascular Cardiovascular exam: Present: +S1, +S2 Additional comments: Temporary pacemaker in place - GI/Abdominal Exam GI/Abdominal exam: Present: normal bowel sounds, soft - Extremities Exam Extremities exam: Present: normal inspection Additional comments: Bilateral lower extremities cool to touch - Neurological Exam Additional comments: Sedated on ventilator - Skin Skin exam: Present: dry, pallor, warm Internal Medicine - CN: Reslt - Labs CBC & Chem 7: 10/07/18 02:25 10/07/18 01:00 Labs: Short CBC 10/06/18 10/07/18 10/07/18 Range/Units 18:13 01:00 02:25 WBC 7.0 6.5 8.5 (4.3-11.1) K/mcL Hgb 13.5 12.6 11.3 L (11.5-15.4) g/dL Hct 41.9 39.2 35.5 (35.3-44.9) % Plt Count 260 215 251 (140-400) K/mcL Neutrophils # 4.8 5.4 5.5 (1.6-8.9) K/mcL BMP 10/06/18 10/07/18 18:13 01:00 Sodium 133 L 138 Potassium 4.1 3.8 Chloride 97 L 103 Carbon Dioxide 25 24 BUN 35 H 33 H Creatinine 1.53 H 1.34 H Glucose 228 H 187 H Calcium 9.4 9.0 Cardiac Enzymes 10/06/18 10/06/18 10/07/18 Range/Units 18:13 21:52 02:25 Troponin I < 0.03 0.41 H* 3.01 H* (< 0.04) ng/mL Liver Function 10/06/18 Range/Units 21:52 Total Bilirubin 0.7 (0.3-1.0) mg/dL Direct Bilirubin 0.1 (0.0-0.2) mg/dL AST 17 (13-39) Units/L ALT 11 (7-52) Units/L Alkaline Phosphatase 162 H (34-104) Units/L Albumin 3.8 (3.5-5.7) g/dL - ABG Interpretation ABG results: ABG ABG pH 7.34 pH Units (7.32-7.45) 10/07/18 07:47 ABG pCO2 44 mmHg (35-45) 10/07/18 07:47 ABG pO2 127 mmHg (85-104) H D 10/07/18 07:47 ABG O2 Saturation 99 % (95-98) H 10/07/18 07:47 PT/INR, D-dimer PT 10.5 Seconds (9.4-12.1) 10/06/18 18:13 - Impressions Impressions Chest X-Ray 10/06/18 18:06 IMPRESSION: 1. No acute pulmonary disease is evident. 2. Calcific atherosclerosis aorta. 3. Cardiomegaly. 4. Gracile appearance posterior right rib 4 is likely on a developmental basis. D/ / Derik Crocker / Derik Crocker Interpreting Provider: Derik Crocker Echocardiogram 10/07/18 00:00 Impressions: LVEF 40-45%. Moderate segmental left ventricular systolic dysfunction. Moderate concentric left ventricular hypertrophy. Atypical septal motion consistent with paced rhythm. Mild right ventricular hypokinesis. Unable to estimate RVSP due to lack of TR jet. No significant valvular dysfunction. Left Ventricular Wall Motion: Rest Echo Findings The apical lateral, mid anterior lateral and basal anterior lateral crowell were hypokinetic. The mid inferior and mid inferior lateral crowell were akinetic. All other wall segments showed normal motion. Findings: Study Quality * Technically adequate exam. ECG Findings * Paced rhythm. Left Ventricle * LVEF 40-45%. * Indeterminate diastolic function. * Moderate concentric left ventricular hypertrophy. * There is no LV thrombus. * Definity echo contrast was used. * Atypical septal motion consistent with paced rhythm. * Moderate segmental left ventricular systolic dysfunction. Right Ventricle * Mild right ventricular hypokinesis. * Mildly dilated right ventricle. Left Atrium * Normal left atrial size. Right Atrium * Normal right atrial size. Interatrial Septum * No evidence of PFO by color Doppler. Aortic Valve * Aortic valve not well visualized. * No aortic regurgitation. * No aortic stenosis. Mitral Valve * No mitral regurgitation. * No mitral stenosis. * Mitral valve not well visualized. Tricuspid Valve * Normal tricuspid valve structure. * Trace tricuspid regurgitation. * No tricuspid stenosis. * Unable to estimate RVSP due to lack of TR jet. Pulmonic Valve * Pulmonic valve not well visualized. Aorta * Normally sized aortic root. IVC * The IVC is dilated. Pericardium * There is no pericardial effusion present. Chest X-Ray 10/07/18 02:30 IMPRESSION: Support lines all in good position with no evidence for pneumothorax. D/ / Lloyd Chapin MD / Lloyd Chapin MD Interpreting Provider: Lloyd Chapin MD Chest X-Ray 10/07/18 05:01 IMPRESSION: Appropriate endotracheal tube positioning. Appropriate percutaneous trans venous single lead pacemaker positioning. No pneumothorax. Fluctuating basilar atelectasis. Small left effusion. D/ / Shawn Velazquez / Shawn Velazquez Interpreting Provider: Shawn Velazquez X-Ray 10/07/18 11:09 IMPRESSION: Enteric tube in the stomach with the side port and tip coiled in the fundus. D/ / 10/07/2018 12:55:44 Flynn Frank MD / anthony Interpreting Provider: Flynn Frank MD Consult Discharge Plan - Plan Referrals: NONE,PCP [Primary Care Provider] - Palliative Quality Palliative Quality: Screen for Code Status: Yes, Screen for Goals of Care: Yes, Screen for Pain: Yes, If Pain Regimen Started, Initiate Bowel Regimen: NA, Screen for Nausea/Vomitting: NA Code Status: 10/07/18 08:15 Resuscitation Status: Active [RES] Routine Comment: Resuscitation Status: DNR-Comfort Care-Arrest
[2018-10-07] MEDS: Furosemide 20 MG/2 ML VIAL IVP SCH (16:09)
[2018-10-07] MEDS ORDERED: *HR* Heparin 5,000 UNIT/ML VIAL IVP ONE (19:43)
[2018-10-07] MEDS ORDERED: *HR* Heparin 5,000 UNIT/ML VIAL IVP PRN ×2 (19:43)
[2018-10-07 20:02] LABS: Hematocrit 38.4 % (35.3-44.9); Hemoglobin 11.8 g/dL (11.5-15.4); Mean Corpuscular HGB Conc 30.7 g/dL (31.6-35.5); Mean Corpuscular Hemoglobin 27.5 pg (28.0-33.3); Mean Corpuscular Volume 89.5 fL (83.0-100.0); Mean Platelet Volume 9.4 fL (9.4-12.4); Platelet Count 241 K/mcL (140-400); Red Blood Count 4.29 M/mcL (3.82-4.97); Red Cell Distribution Width 14.9 % (11.5-14.5)
[2018-10-07 20:10] LABS: Prothrombin Time 11.3 Seconds (9.4-12.1)
[2018-10-07] MEDS: Heparin 25,000 UNIT/250 ML D5W 25,000 UNIT/250 ML IV.SOLN IVC SCH (20:56)
[2018-10-08 03:16] LABS: Hematocrit 36.8 % (35.3-44.9); Hemoglobin 11.7 g/dL (11.5-15.4); Mean Corpuscular HGB Conc 31.8 g/dL (31.6-35.5); Mean Corpuscular Hemoglobin 28.8 pg (28.0-33.3); Mean Corpuscular Volume 90.6 fL (83.0-100.0); Platelet Count 252 K/mcL (140-400); Red Blood Count 4.06 M/mcL (3.82-4.97); Red Cell Distribution Width 14.9 % (11.5-14.5)
[2018-10-08 03:17] LABS: Basophils # 0.1 K/mcL (0.0-0.2); Basophils % 0.5 %; Eosinophils % 0.1 %; Immature Granulocytes % 0.5 % (0-4); Immature Platelets 1.3 % (1.1-6.1); Lymphocytes # 0.9 K/mcL (0.6-4.6); Lymphocytes % 8.1 %; Mean Platelet Volume 9.5 fL (9.4-12.4); Monocytes # 0.9 K/mcL (0.0-1.3); Neutrophils # 9.2 K/mcL (1.6-8.9); Segmented Neutrophils % 82.8 %
[2018-10-08 03:28] LABS: Calcium 8.6 mg/dL (8.6-10.3); Potassium 4.1 mEq/L (3.5-5.1)
[2018-10-08] MEDS: FentaNYL (PF) 1,000 MCG in 0.9 % Sodium Chloride 80 ML IVC SCH (03:40)
[2018-10-08] MEDS: Artificial Tears SOLN 15 ML BOTTLE BOTH EYES SCH ×4 (04:47→12:21)
[2018-10-08 04:59] LABS: ABG Base Excess 0 mEq/L (-2 to 3); ABG HCO3 25 mEq/L (21-27); ABG Oxygen Saturation 96 % (95-98); ABG PCO2 40 mmHg (35-45); ABG PO2 85 mmHg (85-104); ABG TCO2 26 mEq/L (20-26); Blood Gas Modality ASSIST CONTROL; Blood Gas PEEP 5 cm H2O; Blood Gas Respiration Rate 16; Blood Gas VT 450 cc
--- NOTE | 2018-10-08 06:09 | Pulmonology Progress Note ---
Addendum entered and electronically signed by Chino Diehl 10/08/18 11:11: Cardiology decided that the pt will not be taken back to [facility]. She is to be extubated to BiPAP today as long as she passes CPAP trial. Original Note: <FazalChino - Last Filed: 10/08/18 10:41> Date of Encounter: 10/08/18 Time of Encounter: 08:36 Assessment and Plan (1) ST elevation myocardial infarction (STEMI) Current Visit: Yes Status: Acute Pt presented 10/07/18 and was taken emergently to the [facility] where she was found to have 100% stenosis of the RCA, 80% stenosis of the mid circumflex - she had an episode of asystole, required ~30 seconds of chest compressions and was given 1x epinephrine - the pt was then intubated for inability to protect her airway - pt does have hx 2 previous stents ABG this morning: pH 7.40, pCO2 40, pO2 85, HCO3 25 Vent settings: RR 13, FiO2 40, PEEP 5, currently on CPAP trial EKG showed increased ST elevation inferiorly - she was given a dose of plavix and brillenta followed by low dose heparin protocol in the ER ECHO 10/07/18 LVEF 40-45% on ECHO with mild right ventricular hypokenesis, no valvular dysfxn Plan: - palliative consulted for goals of care - cardiology consulted, awaiting further recommendations - continue pacer as per cardiology - continue lopressor, aspirin, plavix and lipitor - dopamine and levophed turned off at this time - continue versed as needed - plan was to extubate today but cardiology asked for her to remain intubaed pt has weak intrinsic pulse plan is for her to potentially go back to [facility] tomorrow potentially remain intubated until s/p [facility] tomorrow did tolerate CPAP trial Qualifiers: Involved coronary artery: right coronary artery Qualified Code(s): I21.11 - ST elevation (STEMI) myocardial infarction involving right coronary artery (2) Goals of care, counseling/discussion Current Visit: Yes Status: Acute Will remain DNR-CCA. POA is Cosme (son) who is currently in [place]. Please see palliative consult note for further details. (3) Morbid obesity Current Visit: Yes Status: Acute BMI 59.6 (4) Elevated troponin Current Visit: Yes Status: Acute 0.3 --> .41 --> 3.01 - likely type 1 (5) TATYANA (acute kidney injury) Current Visit: Yes Status: Acute Creatinine 1.53 on admission, currently 1.34 --> 1.58 Continue I&O, pretty cath. (6) CAD (coronary artery disease) Current Visit: Yes Status: Acute Continue aspirin, lipitor, plavix, and lopressor as per cardiology recommendations. Qualifiers: Coronary Disease-Associated Artery/Lesion type: unspecified vessel or lesion type [place] vs. transplanted heart: unspecified whether [place] or transplanted heart Associated angina: angina presence unspecified Qualified Code(s): I25.10 - Atherosclerotic heart disease of [place] coronary artery without angina pectoris (7) DVT prophylaxis Current Visit: Yes Status: Acute heparin drip (8) A-fib Current Visit: No Status: Chronic On heparin drip Qualifiers: Atrial fibrillation type: unspecified Qualified Code(s): I48.91 - Unspecified atrial fibrillation Subjective Principal diagnosis: STEMI Interval history: Pt is seen at bedside. She is currently on CPAP trial. Pt is able to nod her head yes and no to basic questions. She would like to be extubated today. Objective PUL Vital signs: Last Vital Signs Temp 98.1 F 10/08/18 04:00 Pulse 70 10/08/18 05:00 Resp 16 10/08/18 05:00 BP 129/58 10/08/18 05:00 Pulse Ox 98 10/08/18 05:00 General appearance: lethargic Eyes: nonicteric ENT: oropharynx dry Effort: normal Auscultation: bilateral: diminished breath sounds Cardiovascular: irregular rhythm Gastrointestinal: other (morbid obesity, large eccymosis noted to the right thigh from femoral hematoma) Musculoskeletal: no deformities unable to assess due to mental status other (unable to assess due to mental status) Ventilator Settings Ventilator Settings: Ventilator Settings, Last 8 Hours Ventilator Tidal Volume 450 Setting Ventilator Tidal Volume 450 Setting Ventilator Tidal Volume 450 Setting Ventilator Tidal Volume 450 Setting Ventilator Tidal Volume 450 Setting Ventilator Tidal Volume 450 Setting Ventilator Tidal Volume 450 Setting Ventilator Tidal Volume 450 Setting Ventilator Tidal Volume 450 Setting Ventilator Tidal Volume 450 Setting Ventilator Respiratory Rate 16 Setting Ventilator Respiratory Rate 16 Setting Ventilator Respiratory Rate 16 Setting Ventilator Respiratory Rate 16 Setting Ventilator Respiratory Rate 16 Setting Ventilator Respiratory Rate 16 Setting Ventilator Respiratory Rate 16 Setting Ventilator Respiratory Rate 16 Setting Ventilator Respiratory Rate 16 Setting Ventilator Respiratory Rate 16 Setting Actual Respiratory Rate 16 Actual Respiratory Rate 16 Actual Respiratory Rate 16 Actual Respiratory Rate 16 Actual Respiratory Rate 16 Actual Respiratory Rate 16 Actual Respiratory Rate 16 Actual Respiratory Rate 16 Actual Respiratory Rate 16 Positive End Expiratory 5 Pressure Positive End Expiratory 5 Pressure Positive End Expiratory 5 Pressure Positive End Expiratory 5 Pressure Positive End Expiratory 5 Pressure Positive End Expiratory 5 Pressure Positive End Expiratory 5 Pressure Positive End Expiratory 5 Pressure Positive End Expiratory 5 Pressure Positive End Expiratory 5 Pressure Peak Inspiratory Airway 20 Pressure Peak Inspiratory Airway 20 Pressure Peak Inspiratory Airway 20 Pressure Peak Inspiratory Airway 20 Pressure Peak Inspiratory Airway 20 Pressure Peak Inspiratory Airway 20 Pressure Peak Inspiratory Airway 20 Pressure Peak Inspiratory Airway 20 Pressure Peak Inspiratory Airway 20 Pressure Results - Laboratory Findings CBC and BMP: 10/08/18 02:55 10/08/18 02:55 ABG ABG pH 7.40 pH Units (7.32-7.45) 10/08/18 04:56 ABG pCO2 40 mmHg (35-45) 10/08/18 04:56 ABG pO2 85 mmHg (85-104) 10/08/18 04:56 ABG O2 Saturation 96 % (95-98) 10/08/18 04:56 PT/INR, D-dimer PT 11.3 Seconds (9.4-12.1) 10/07/18 19:50 Abnormal lab findings: Abnormal lab results RDW 14.9 % (11.5-14.5) H 10/08/18 02:55 Neutrophils # 9.2 K/mcL (1.6-8.9) H 10/08/18 02:55 Heparin Anti-Xa, Unfract 1.18 IU/mL (0.30-0.70) H* 10/08/18 02:55 BUN 39 mg/dL (8-23) H 10/08/18 02:55 Creatinine 1.58 mg/dL (0.60-1.20) H 10/08/18 02:55 Est GFR ( Amer) 39 (> 60) L 10/08/18 02:55 Est GFR (Non-Af Amer) 32 (> 60) L 10/08/18 02:55 Glucose 251 mg/dL (70-105) H 10/08/18 02:55 POC Glucose 209 mg/dL (70-99) H 10/07/18 23:16 Calculated Osmolality 304 (280-300) H 03/03/19 02:55 Alkaline Phosphatase 162 Units/L (34-104) H 10/06/18 21:52 Troponin I 3.01 ng/mL (< 0.04) H* 10/07/18 02:25 LDL Cholesterol, Calc 131 mg/dL (0-99) H 10/07/18 01:00 - Clinical Findings Intake & Output: Intake & Output 10/07/18 10/07/18 10/08/18 15:59 23:59 07:59 Intake Total 120 / 120 200 / 200 289 / 289 Output Total 300 / 300 500 / 500 625 / 625 Balance -180 / -180 -300 / -300 -336 / -336 Weight 167.5 kg Consult Discharge Plan - Plan Referrals: NONE,PCP [Primary Care Provider] - <Marco Antonio Thomas - Last Filed: 10/08/18 11:08> Date of Encounter: 10/08/18 Objective PUL Vital signs: Last Vital Signs Temp 98.5 F 10/08/18 07:07 Pulse 70 10/08/18 10:00 Resp 16 10/08/18 10:03 BP 105/67 10/08/18 10:03 Pulse Ox 96 10/08/18 10:03 Ventilator Settings Ventilator Settings: Ventilator Settings, Last 8 Hours Ventilator Tidal Volume 450 Setting Ventilator Tidal Volume 450 Setting Ventilator Tidal Volume 450 Setting Ventilator Tidal Volume 450 Setting Ventilator Tidal Volume 450 Setting Ventilator Tidal Volume 450 Setting Ventilator Tidal Volume 450 Setting Ventilator Respiratory Rate 16 Setting Ventilator Respiratory Rate 16 Setting Ventilator Respiratory Rate 16 Setting Ventilator Respiratory Rate 16 Setting Ventilator Respiratory Rate 16 Setting Ventilator Respiratory Rate 16 Setting Ventilator Respiratory Rate 16 Setting Actual Respiratory Rate 16 Actual Respiratory Rate 16 Actual Respiratory Rate 14 Actual Respiratory Rate 14 Actual Respiratory Rate 18 Actual Respiratory Rate 12 Actual Respiratory Rate 16 Actual Respiratory Rate 16 Actual Respiratory Rate 16 Actual Respiratory Rate 16 Positive End Expiratory 5 Pressure Positive End Expiratory 5 Pressure Positive End Expiratory 5 Pressure Positive End Expiratory 5 Pressure Positive End Expiratory 5 Pressure Positive End Expiratory 5 Pressure Positive End Expiratory 5 Pressure Positive End Expiratory 5 Pressure Positive End Expiratory 5 Pressure Positive End Expiratory 5 Pressure Positive End Expiratory 5 Pressure Peak Inspiratory Airway 23 Pressure Peak Inspiratory Airway 23 Pressure Peak Inspiratory Airway 16 Pressure Peak Inspiratory Airway 15 Pressure Peak Inspiratory Airway 15 Pressure Peak Inspiratory Airway 15 Pressure Peak Inspiratory Airway 20 Pressure Peak Inspiratory Airway 20 Pressure Peak Inspiratory Airway 20 Pressure Peak Inspiratory Airway 20 Pressure Results - Laboratory Findings CBC and BMP: 10/08/18 02:55 10/08/18 02:55 ABG ABG pH 7.40 pH Units (7.32-7.45) 10/08/18 04:56 ABG pCO2 40 mmHg (35-45) 10/08/18 04:56 ABG pO2 85 mmHg (85-104) 10/08/18 04:56 ABG O2 Saturation 96 % (95-98) 10/08/18 04:56 PT/INR, D-dimer PT 11.3 Seconds (9.4-12.1) 10/07/18 19:50 Abnormal lab findings: Abnormal lab results RDW 14.9 % (11.5-14.5) H 10/08/18 02:55 Neutrophils # 9.2 K/mcL (1.6-8.9) H 10/08/18 02:55 Heparin Anti-Xa, Unfract 0.96 IU/mL (0.30-0.70) H 10/08/18 09:00 BUN 39 mg/dL (8-23) H 10/08/18 02:55 Creatinine 1.58 mg/dL (0.60-1.20) H 10/08/18 02:55 Est GFR ( Amer) 39 (> 60) L 10/08/18 02:55 Est GFR (Non-Af Amer) 32 (> 60) L 10/08/18 02:55 Glucose 251 mg/dL (70-105) H 10/08/18 02:55 POC Glucose 260 mg/dL (70-99) H 10/08/18 05:55 Calculated Osmolality 304 (280-300) H 10/08/18 02:55 Alkaline Phosphatase 162 Units/L (34-104) H 10/06/18 21:52 Troponin I 3.01 ng/mL (< 0.04) H* 10/07/18 02:25 LDL Cholesterol, Calc 131 mg/dL (0-99) H 10/07/18 01:00 - Clinical Findings Intake & Output: Intake & Output 10/07/18 10/08/18 10/08/18 23:59 07:59 15:59 Intake Total 200 / 200 289 / 289 302 / 302 Output Total 500 / 500 725 / 725 Balance -300 / -300 -436 / -436 302 / 302 Weight 167.5 kg - Attending Attestation I examined this patient and my medical decision-making was reviewed with the Resident Physician. I agree with the documented findings, disposition and treatment plan as described except to the extent set forth below. We independently had [id number] contact with the patient I spent 32min of Critical Care time with this patient. It involved decision making of high complexity to assess, manipulate, and support vital organ system failure and/or to prevent further life threatening deterioration of the patient' s condition. The time involved in the performance of separately reportable procedures was not counted toward critical care time. Patient seen and examined at bedside Labs, radiology, chart personally reviewed. Management was reviewed during multidisciplinary critical care rounds. DIRECTOR OF ARCHITECTURE: Patient is on low-dose of sedative for anxiety while on vent she is able to follow commands with no gross neurological deficit Pulm: Approximate hypercapnic respiratory failure on the vent acceptable gas exchange spontaneous breathing trial planned for today Cards: STEMI s/p PCI followed by Cardiogenic shock which is resolving. Has a transvenous temporary pacer in place and an paced rhythm appears likely junctional escape and insufficient chronotropic support. Appreciate cardiology recommendations GI: GI prophylaxis given Nutrition: Nothing by mouth for now Renal: UOP Monitored, Cont to Trend sCr and monitor Electrolytes. ID: No evidence of infection continue to monitor Heme/Onc: Heparin infusion per cardiology Endo: Glucose Monitored Integ/MSK: Skin Care per routine ICU Nursing Protocol to prevent ulcers. Lines: All lines examined without evidence of infection : Dispo: Remain in ICU for critical illness CODE: DNAR palliative care on board to address goals of care
[2018-10-08] MEDS: Pantoprazole 40 MG VIAL IVP SCH (07:46)
[2018-10-08] MEDS: Aspirin 81 MG TAB.CHEW PO SCH (07:46)
[2018-10-08] MEDS: Furosemide 20 MG/2 ML VIAL IVP SCH (07:46)
[2018-10-08] MEDS: Chlorhexidine Rinse 15 ML MOUTHWASH MM SCH ×2 (07:46→19:55)
[2018-10-08] MEDS ORDERED: Dexmedetomidine HCl 400 MCG/100 ML MLS IVC SCH (08:45)
--- NOTE | 2018-10-08 10:22 | Cardiology Progress Note ---
Date of Encounter: 10/08/18 Time of Encounter: 09:30 Assessment and Plan (1) ST elevation myocardial infarction (STEMI) Current Visit: Yes Status: Acute Inferior ST elevation [place] status post UMA to proximal right coronary artery. Patient did develop subsequent cardiac arrest and received CPR, atropine and epinephrine. She subsequently underwent TV pacer insertion for bradycardia with hypotension.. TTE shows ejection fraction 40-45% on echo with mild right ventricular hypokinesis. Continue aspirin 81 mg daily, Plavix 75 mg daily, high intensity statin. Beta marcy on hold because of bradycardia. Palliative care consulted as family felt patient would not want to be intubated.. Family would like to continue care to allow for recovery. She was changed to DNRCCA per wishes of POA. Qualifiers: Involved coronary artery: right coronary artery Qualified Code(s): I21.11 - ST elevation (STEMI) myocardial infarction involving right coronary artery (2) Bradycardia Current Visit: Yes Status: Acute Bradycardia in the setting of right coronary stenosis. Requiring temporary pacemaker. Continue to pace at 70/m. Avoid AV vijay blocking agents. Intrensic rate O-15 junctional this morning when PPM turned off. Continue TV pacing. Levophed ordered for intermittent hypotension. (3) Paroxysmal A-fib Current Visit: Yes Status: Acute On Xarelto from home. On IV heparin with close monitoring of hemoglobin. No metoprolol as patient is bradycardic. Currently V paced. (4) Respiratory failure requiring intubation Current Visit: Yes Status: Acute Chest x-ray shows mild congestion. Patient with acute systolic CHF. IV Lasix 20 mg daily, strict I and O. Pulmonary consultated for vent management. Appreciate recommendations. She was not extubated today due to concern that patient needs to lay flat for TV pacer. Once extubated may need to sit up for continuous bipap. Discussed with Dr. Wetzel, recommends keeping intubated until after possible LHC tomorrow. (5) Acute systolic CHF (congestive heart failure), NYHA class 3 Current Visit: Yes Status: Acute Chest x-ray shows mild congestion. Patient with mild acute systolic CHF. IV Lasix 20 mg daily started. No significant fluid over load on exam. Scr increased. Reported to have tolerated c-pap trial. Will change lasix to PRN until taking oral. strict I and O. No bb or cristopher I secondary to bradycardia and hypotension. Discussion w patient/family: The assessment and plan as outlined above was discussed with the patient and/or family members who expressed understanding and agreement. All questions were answered. Thank you for involving us in the care of your patient. Please call with any questions. Plan of care and assessment reviewed with Dr. Wetzel who will see patient and make changes accordingly. Subjective Principal diagnosis: STEMI Interval history: Ms. Jeter remains intubated with some sedation. She is responsive to verbal stimuli and moving both of her arms. She is shaking her head yes or no. Objective Vital Signs, Last 4 Hours Temp Pulse Resp BP Pulse Ox 10/08/18 10:00 70 16 105/67 96 10/08/18 09:00 70 14 107/59 98 10/08/18 08:00 70 16 150/61 96 10/08/18 07:28 18 140/63 99 10/08/18 07:07 98.5 F 10/08/18 06:35 12 140/63 98 General: No Apparent Distress HEENT: Atraumatic, Normocephaly, Mucus Membranes Moist, Other (ET tube in place) Neck: No JVD, Normal carotid pulses, Other (Right IJ TV pacer in place.) Cardiac: Reg Rate and Rhythm, Normal S1 and S2, No Murmur, Other (Ventricular pacing) Lungs: Normal Breath Sounds, No Wheeze, Rales, Rhonchi, Other (On mechanical ventilation) Neuro: Alert and responsive, No focal deficits noted, Other (Drowsy from IV sedation) Abdomen: Soft, Non-Tender Skin: No rashes noted on visualized skin Musculoskeletal: No Chest Wall Tenderness Extremities: No Clubbing, No Cyanosis, No Edema, Normal Pulses Results 10/08/18 02:55 10/08/18 02:55 Lab Results 10/07/18 10/07/18 10/08/18 19:50 19:50 02:55 WBC 9.9 11.1 Hgb 11.8 11.7 Hct 38.4 36.8 Plt Count 241 252 INR 1.0 Sodium Potassium Chloride Carbon Dioxide BUN Creatinine Glucose Calcium 10/08/18 02:55 WBC Hgb Hct Plt Count INR Sodium 138 Potassium 4.1 Chloride 106 Carbon Dioxide 24 BUN 39 H Creatinine 1.58 H Glucose 251 H Calcium 8.6 - Imaging and Cardiology Echo: report reviewed Cardiac cath: report reviewed - EKG Interpretation EKG results cardiology: personally reviewed Consult Discharge Plan - Plan Referrals: NONE,PCP [Primary Care Provider] -
[2018-10-08] MEDS: Heparin 25,000 UNIT/250 ML D5W 25,000 UNIT/250 ML IV.SOLN IVC SCH (11:09)
[2018-10-08 12:17] LABS: Troponin I 6.89 ng/mL (< 0.04)
[2018-10-08] MEDS ORDERED: D5% in Water 1,000 ML IVC PRN (12:30)
[2018-10-08] MEDS ORDERED: Insulin LISPRO 300 UNITS/3 ML VIAL SQ SCH ×2 (12:30)
[2018-10-08] MEDS ORDERED: *HR* Dextrose 50 % in Water (Syg) 50 ML SYRINGE IVP PRN (12:30)
[2018-10-08] MEDS ORDERED: Dextrose Gel 15 GM/37.5 ML TUBE PO PRN ×2 (12:30)
[2018-10-08] MEDS ORDERED: Dextrose 4 GM Chewable Tablets PO PRN ×2 (12:30)
--- NOTE | 2018-10-08 12:31 | Event Note ---
Date of Encounter: 10/08/18 Time of Encounter: 11:30 Patient remains on vent, but will likely be extubated soon. She is awake and able to follow simple commands, shake head yes/no. Indicated this am, she WOULD want reintubated if needed. Cardiology notes reviewed. Prognosis appeared to remain guarded. I attempted to call son Cosme in [place], and granddaughter Jade, but could not reach either by phone today. Palliative will continue to follow clinical course.
[2018-10-08 13:17] LABS: Magnesium 2.6 mg/dL (1.6-2.6)
--- NOTE | 2018-10-08 13:18 | Cardiology Progress Note ---
Date of Encounter: 10/08/18 Time of Encounter: 13:00 Assessment and Plan Discussion w patient/family: The assessment and plan as outlined above was discussed with the patient and/or family members who expressed understanding and agreement. All questions were answered. Thank you for involving us in the care of your patient. Please call with any questions. Subjective Principal diagnosis: STEMI Interval history: Patient is a 73 yo morbidly obese (BMI=60) woman with a reported history of prior stenting years ago at [facility] in [place], [place]. She presented Tuesday evening following 3-4 days of waxing and waning chest pain that culminated in severe persistent chest pain around 3:30pm on Tuesday. ECG demonst rated subacute changes concerning for inferior MS and the analytical lab technician was activated. Radial access was the preferred approach given her morbid obesity; however, she had thrombosis of right radial in the past that required surgery, and she was told at [facility] that "your arteries are too small, and you should never have another cath from the wrist". We proceeded with femoral access with obvious concern given her size and concomitant use of Xarelto. At the time of angiography, her RCA was completely occluded proximally, and imaging was not sufficient to determine if it was proximal to, or within, a prior stent. There was minimal disease in her LAD, and a focal 70-80% mLCX stenosis. She underwent PCI to the RCA with placement of a single UMA, dilated up to 3.5mm. She reportedly had good hemostasis following sheath pull and manual compression; however, ~25 minutes after compression was complete, she had an obvious expanding right groin hematoma with a pronounced vagal response with asystole during subsequent manual compression of her femoral access site. The in-house physician was concerned about her ability to protect her airway and intubated her, placed a triple lumen in left IJ, and started transfusion of PRBCs. I was called to take her back to the lab for a temporary pacer wire. On my arrival, I held pressure at the femoral access site and increased the dopamine to assist with heart rate and BP as femoral pressure was being applied. The in-house physician placed an arterial line via left radial while I was holding the groin site. At this point, she was in AF with VR in the 110-120 range, but given her sinus bradycardia and junctional bradycardia in the ED, in conjunction with asystole during hematoma expansion, we decided to proceed with temporary pacemaker placement via right IJ. Over the last 24 hours, subsequent studies have demonstrated a relatively small troponin rise to 6, an echo with an EF of 40-45% with no prior study available for comparison. She has behaved like an RV infarct with volatile BP readings that were likely on the basis of preload dependency. There has been reluctance to give fluid based on CXR findings of mild pulmonary edema; however, these films were portable, with her lying flat, and with an enormous body habitus making interpretation more difficult. When she was given lasix, her BP dropped and creatinine bumped as further evidence of preload dependence. In the background, we have now learned that the patient was DNR-CC, though no advanced directives were known at the time of her presentation to the ER. Family agreed to limited continuance of care to see if she would recover, and palliative medicine has been consulted. Suggested Plan: Coronary Artery Disease: I would advise against any further coronary angiography. There has been concern that her bradycardia may be the result of subsequent stent occlusion; however, at this point, that would appear irrelevant. If her RCA has reoccluded, and her troponin only went to 6, that would suggest relatively limited viability prior to presentation. In that scenario, repeat PCI would not improve prognosis, and it seems unlikely to impact her sinus node dysfunction. If her RCA is patent, then she is being subjected to the risk (which she has already demonstrated is not small) of the procedure with no benefit. In terms of the LCX, there would be no indication for PCI unless there was objective evidence to suggest active ischemia (ie, evidence for ischemic MR). Given her desire for DNR-CC, the risk associated with repeat femoral (or radial access), and the low likelihood for any benefit, I would favor medical management without repeat angiography. Hemodynamic Instability: There is enough evidence to suggest she is behaving like an RV infarct, and would suggest caution in the use of diuretics, and would consider volume expansion if hypotension recurs. PAF with sinus node dysfunction now temp pacer dependent: I suspect sinus node dysfunction at baseline, and am cautiously optimistic that there will be recovery of sinus node function. If not, would obtain old records and determine whether dual chamber or single chamber pacing is most appropriate. Objective Vital Signs, Last 4 Hours Temp Pulse Resp BP Pulse Ox 10/08/18 12:20 16 114/50 96 10/08/18 12:17 96 10/08/18 12:16 16 10/08/18 12:00 98.5 F 70 11 113/58 94 10/08/18 11:17 16 105/67 96 10/08/18 11:07 98.5 F 10/08/18 10:03 16 105/67 96 10/08/18 10:00 70 16 105/67 96 10/08/18 09:00 70 14 107/59 98 Results 10/08/18 02:55 10/08/18 02:55 Lab Results 10/07/18 10/07/18 10/08/18 19:50 19:50 02:55 WBC 9.9 11.1 Hgb 11.8 11.7 Hct 38.4 36.8 Plt Count 241 252 INR 1.0 Sodium Potassium Chloride Carbon Dioxide BUN Creatinine Glucose Calcium Troponin I 10/08/18 10/08/18 02:55 10:51 WBC Hgb Hct Plt Count INR Sodium 138 Potassium 4.1 Chloride 106 Carbon Dioxide 24 BUN 39 H Creatinine 1.58 H Glucose 251 H Calcium 8.6 Troponin I 6.89 H* Consult Discharge Plan - Plan Referrals: NONE,PCP [Primary Care Provider] -
[2018-10-08] MEDS ORDERED: Ondansetron 4 MG/2 ML VIAL IVP PRN (14:11)
[2018-10-08] MEDS ORDERED: Ondansetron 4 MG/2 ML VIAL ONE (14:12)
[2018-10-08] MEDS: Insulin LISPRO 300 UNITS/3 ML VIAL SQ SCH (18:25)
[2018-10-08] MEDS ORDERED: OXYCODONE Oral CONC 10 MG/0.5 ML ORAL.SYG SL PRN (19:09)
[2018-10-09] MEDS: Insulin LISPRO 300 UNITS/3 ML VIAL SQ SCH ×4 (02:04→20:52)
[2018-10-09] MEDS: Heparin 25,000 UNIT/250 ML D5W 25,000 UNIT/250 ML IV.SOLN IVC SCH ×3 (03:37→22:13)
[2018-10-09 04:27] LABS: Basophils # 0.1 K/mcL (0.0-0.2); Basophils % 0.8 %; Eosinophils # 0.1 K/mcL (0.0-0.6); Eosinophils % 0.9 %; Hematocrit 33.1 % (35.3-44.9); Hemoglobin 10.4 g/dL (11.5-15.4); Immature Granulocytes % 1.4 % (0-4); Lymphocytes # 1.1 K/mcL (0.6-4.6); Lymphocytes % 11.5 %; Mean Corpuscular HGB Conc 31.4 g/dL (31.6-35.5); Mean Corpuscular Hemoglobin 28.9 pg (28.0-33.3); Mean Corpuscular Volume 91.9 fL (83.0-100.0); Mean Platelet Volume 9.8 fL (9.4-12.4); Monocytes # 0.8 K/mcL (0.0-1.3); Monocytes % 8.7 %; Neutrophils # 7.2 K/mcL (1.6-8.9); Nucleated Red Blood Cells 0.8 /100 WBC (0); Platelet Count 237 K/mcL (140-400); Segmented Neutrophils % 76.7 %
[2018-10-09 04:40] LABS: Calcium 8.6 mg/dL (8.6-10.3); Potassium 3.9 mEq/L (3.5-5.1)
[2018-10-09] MEDS ORDERED: Ondansetron 4 MG/2 ML VIAL IVP ONE (06:12)
--- NOTE | 2018-10-09 06:42 | Pulmonology Progress Note ---
<Chino Diehl S - Last Filed: 10/09/18 10:33> Date of Encounter: 10/09/18 Time of Encounter: 07:45 Assessment and Plan (1) ST elevation myocardial infarction (STEMI) Current Visit: Yes Status: Acute Pt presented 10/07/18 and was taken emergently to the laboratory equipment installer where she was found to have 100% stenosis of the RCA, 80% stenosis of the mid circumflex - she had an episode of asystole, required ~30 seconds of chest compressions and was given 1x epinephrine - the pt was then intubated for inability to protect her airway - pt does have hx 2 previous stents EKG showed increased ST elevation inferiorly - she was given a dose of plavix and brillenta followed by low dose heparin protocol in the ER ECHO 10/07/18 LVEF 40-45% on ECHO with mild right ventricular hypokenesis, no valvular dysfxn CXR from 10/08/18 showed mild pulmonary edema Plan: - palliative consulted for goals of care - cardiology consulted, awaiting further recommendations for pacer - continue pacer as per cardiology - continue lopressor, aspirin, plavix and lipitor - dopamine and levophed turned off at this time - pt successfuly extubated on 10/08/18 - BiPAP hs and prn Qualifiers: Involved coronary artery: right coronary artery Qualified Code(s): I21.11 - ST elevation (STEMI) myocardial infarction involving right coronary artery (2) Goals of care, counseling/discussion Current Visit: Yes Status: Acute Will remain DNR-CCA. POA is Cosme (son) who is currently in [place]. Please see palliative consult note for further details. (3) Morbid obesity Current Visit: Yes Status: Acute BMI 59 (4) Elevated troponin Current Visit: Yes Status: Acute 0.3 --> .41 --> 3.01 - likely type 1 (5) TATYANA (acute kidney injury) Current Visit: Yes Status: Acute Creatinine 1.53 on admission, currently 1.34 --> 1.58 --> 1.62 Continue I&O, pretty cath. (6) CAD (coronary artery disease) Current Visit: Yes Status: Acute Continue aspirin, lipitor, plavix, and lopressor as per cardiology recommendations. Qualifiers: Coronary Disease-Associated Artery/Lesion type: unspecified vessel or lesion type [place] vs. transplanted heart: unspecified whether [place] or transplanted heart Associated angina: angina presence unspecified Qualified Code(s): I25.10 - Atherosclerotic heart disease of [place] coronary artery without angina pectoris (7) DVT prophylaxis Current Visit: Yes Status: Acute heparin drip (8) A-fib Current Visit: No Status: Chronic On heparin drip Qualifiers: Atrial fibrillation type: unspecified Qualified Code(s): I48.91 - Unspecified atrial fibrillation Subjective Principal diagnosis: STEMI Interval history: Pt is seen at bedside. She was successfully extubated on 10/08/18. Pt is very nauseated this morning and is dry heaving into a bag. She is otherwise without complaint or concern. Objective PUL Vital signs: Last Vital Signs Temp 98.3 F 10/09/18 04:07 Pulse 60 10/09/18 06:00 Resp 18 10/09/18 06:00 BP 113/55 10/09/18 06:00 Pulse Ox 98 10/09/18 06:00 General appearance: alert, appears uncomfortable Eyes: nonicteric ENT: oropharynx dry Effort: mildly labored Auscultation: bilateral: diminished breath sounds (decreased BSx4 secondary to body habitus) Cardiovascular: irregular rhythm Gastrointestinal: soft, other (morbid obesity) Integumentary: erythema, other (large area of eccymosis over right thigh from cath) Extremities: no ischemia or petechiae, edema Musculoskeletal: no deformities normal mental status, non-focal exam anxious Results - Laboratory Findings CBC and BMP: 10/09/18 03:45 10/09/18 03:45 ABG ABG pH 7.40 pH Units (7.32-7.45) 10/08/18 04:56 ABG pCO2 40 mmHg (35-45) 10/08/18 04:56 ABG pO2 85 mmHg (85-104) 10/08/18 04:56 ABG O2 Saturation 96 % (95-98) 10/08/18 04:56 PT/INR, D-dimer PT 11.3 Seconds (9.4-12.1) 10/07/18 19:50 Abnormal lab findings: Abnormal lab results RBC 3.60 M/mcL (3.82-4.97) L 10/09/18 03:45 Hgb 10.4 g/dL (11.5-15.4) L 10/09/18 03:45 Hct 33.1 % (35.3-44.9) L 10/09/18 03:45 MCHC 31.4 g/dL (31.6-35.5) L 10/09/18 03:45 RDW 15.0 % (11.5-14.5) H 10/09/18 03:45 Nucleated RBCs/100 WBC 0.8 /100 WBC (0) H 10/09/18 03:45 BUN 52 mg/dL (8-23) H 10/09/18 03:45 Creatinine 1.62 mg/dL (0.60-1.20) H 10/09/18 03:45 Est GFR ( Amer) 38 (> 60) L 10/09/18 03:45 Est GFR (Non-Af Amer) 31 (> 60) L 10/09/18 03:45 BUN/Creatinine Ratio 32 (6-26) H 10/09/18 03:45 Glucose 200 mg/dL (70-105) H 10/09/18 03:45 POC Glucose 224 mg/dL (70-99) H 10/08/18 23:37 Calculated Osmolality 314 (280-300) H 10/09/18 03:45 Alkaline Phosphatase 162 Units/L (34-104) H 10/06/18 21:52 Troponin I 6.31 ng/mL (< 0.04) H* 10/08/18 18:07 LDL Cholesterol, Calc 131 mg/dL (0-99) H 10/07/18 01:00 - Clinical Findings Intake & Output: Intake & Output 10/08/18 10/08/18 10/09/18 15:59 23:59 07:59 Intake Total 332 / 332 156 / 156 94 / 94 Output Total 325 / 325 375 / 375 175 / 175 Balance -219 / -219 -81 / -81 Weight 166 kg Consult Discharge Plan - Plan Referrals: NONE,PCP [Primary Care Provider] - <Linda Head - Last Filed: 10/09/18 13:54> Date of Encounter: 10/09/18 Objective PUL Vital signs: Last Vital Signs Temp 98.1 F 10/09/18 08:07 Pulse 60 10/09/18 09:00 Resp 16 10/09/18 07:00 BP 160/74 10/09/18 07:00 Pulse Ox 96 10/09/18 07:00 Results - Laboratory Findings CBC and BMP: 10/09/18 03:45 10/09/18 03:45 ABG ABG pH 7.40 pH Units (7.32-7.45) 10/08/18 04:56 ABG pCO2 40 mmHg (35-45) 10/08/18 04:56 ABG pO2 85 mmHg (85-104) 10/08/18 04:56 ABG O2 Saturation 96 % (95-98) 10/08/18 04:56 PT/INR, D-dimer PT 11.3 Seconds (9.4-12.1) 10/07/18 19:50 Abnormal lab findings: Abnormal lab results RBC 3.60 M/mcL (3.82-4.97) L 10/09/18 03:45 Hgb 10.4 g/dL (11.5-15.4) L 10/09/18 03:45 Hct 33.1 % (35.3-44.9) L 10/09/18 03:45 MCHC 31.4 g/dL (31.6-35.5) L 10/09/18 03:45 RDW 15.0 % (11.5-14.5) H 10/09/18 03:45 Nucleated RBCs/100 WBC 0.8 /100 WBC (0) H 10/09/18 03:45 BUN 52 mg/dL (8-23) H 10/09/18 03:45 Creatinine 1.62 mg/dL (0.60-1.20) H 10/09/18 03:45 Est GFR ( Amer) 38 (> 60) L 10/09/18 03:45 Est GFR (Non-Af Amer) 31 (> 60) L 10/09/18 03:45 BUN/Creatinine Ratio 32 (6-26) H 10/09/18 03:45 Glucose 200 mg/dL (70-105) H 10/09/18 03:45 POC Glucose 162 mg/dL (70-99) H 10/09/18 05:47 Calculated Osmolality 314 (280-300) H 10/09/18 03:45 Alkaline Phosphatase 162 Units/L (34-104) H 10/06/18 21:52 Troponin I 6.31 ng/mL (< 0.04) H* 10/08/18 18:07 LDL Cholesterol, Calc 131 mg/dL (0-99) H 10/07/18 01:00 - Clinical Findings Intake & Output: Intake & Output 10/08/18 10/09/18 10/09/18 23:59 07:59 15:59 Intake Total 156 / 156 236 / 236 60 / 60 Output Total 375 / 375 175 / 175 150 / 150 Balance -219 / -219 61 / 61 -90 / -90 Weight 166 kg - Attending Attestation I examined this patient and my medical decision-making was reviewed with the [facility]. I agree with the documented findings, disposition and treatment plan as described except to the extent set forth below. Patient seen and examined. Labs, radiology, chart personally reviewed. 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 Patient probably would need permanent pacemaker, however at this time she is stable and perhaps her condition will improve and hopefully will not need to pacemaker. Due to her cardiac rhythm abnormalities will continue monitoring ICU. GI: Nutrition per dietary and GI prophylaxis per routine Heme: DVT prophylaxis per routine Renal; urine out put and renal funtion reviewed Endorcine: blood glucose is monitored Lines: all lines checked and no evidence of infections Skin: skin care to prevent pressure ulcers per nursing routine care
[2018-10-09] MEDS ORDERED: Insulin LISPRO 300 UNITS/3 ML VIAL SQ SCH (06:49)
[2018-10-09] MEDS ORDERED: *HR* Midazolam HCl 5 MG/5 ML VIAL IVP ONE (08:07)
[2018-10-09] MEDS ORDERED: *HR* Midazolam HCl 2 MG/2 ML VIAL IV ONE (08:07)
[2018-10-09] MEDS ORDERED: *HR* Etomidate 20 MG/10 ML AMPUL IVP ONE (08:07)
[2018-10-09] MEDS: Aspirin 81 MG TAB.CHEW PO SCH (08:20)
[2018-10-09] MEDS: Chlorhexidine Rinse 15 ML MOUTHWASH MM SCH ×2 (08:21→20:10)
[2018-10-09] MEDS: Pantoprazole 40 MG VIAL IVP SCH (08:21)
--- NOTE | 2018-10-09 11:11 | Cardiology Progress Note ---
Date of Encounter: 10/09/18 Time of Encounter: 11:09 Assessment and Plan (1) ST elevation myocardial infarction (STEMI) Current Visit: Yes Status: Acute Inferior ST elevation [place] status post UMA to proximal right coronary artery. During her sheath pull with compression she developed bradycardia and long sinus pause and was given brief CPR by nursing staff. Per record she received atropine and epinephrine during that time. Due to concern for bradycardia a temporary pacer was placed. She required dopamine and levophed for hypotension. These gtt are now off for last 24 hours. Right groin soft with no hematoma. TTE shows ejection fraction 40-45% on echo with mild right ventricular hypokinesis. Continue aspirin 81 mg daily, Plavix 75 mg daily, high intensity statin. Beta marcy on hold because of bradycardia. Palliative care consulted as family felt patient would not want to be intubated. Family agreed continue care to allow for recovery. Now that patient is extubated she said she would be re-intubated if need. See palliative care note She is chest pain free. Qualifiers: Involved coronary artery: right coronary artery Qualified Code(s): I21.11 - ST elevation (STEMI) myocardial infarction involving right coronary artery (2) Bradycardia Current Visit: Yes Status: Acute Bradycardia in the setting of right coronary stenosis. Requiring temporary pacemaker. Pacer decreased to 60 BPM yesterday. She is 100% paced. We turned to 54 bpm and she did have intermittent intrinsic rate of 56 bpm. I discussed with Dr. Snider, we will decrease pacer to 50 bpm today. Continue to wean if tolerated. May require PPM. Avoid AV vijay blocking agents. (3) Paroxysmal A-fib Current Visit: Yes Status: Acute H/o afib. On Xarelto from home. On IV heparin with close monitoring of hemoglobin. No metoprolol as patient is bradycardic. Currently V paced. (4) Respiratory failure requiring intubation Current Visit: Yes Status: Acute Chest x-ray shows mild congestion. Patient with acute systolic CHF. Given IV diuresis. Now on hold due to Scr elevation and concern for RV dyfuction. No extubated to nasal cannula and weaned to 2L. (5) Acute systolic CHF (congestive heart failure), NYHA class 3 Current Visit: Yes Status: Acute Chest x-ray shows mild congestion. Repeat cxr unchanged. Patient with mild acute systolic CHF. IV Lasix 20 mg daily initially given. No significant fluid over load on exam. Scr increased. Denies SOB. Will continue to hold lasix. strict I and O. No bb or cristopher I secondary to bradycardia and hypotension. Discussion w patient/family: The assessment and plan as outlined above was discussed with the patient and/or family members who expressed understanding and agreement. All questions were answered. Thank you for involving us in the care of your patient. Please call with any questions. Plan of care and assessment reviewed with Dr. Wetzel who will see patient and make changes accordingly. Subjective Principal diagnosis: STEMI Interval history: Ms. Jeter is now extubated. She denies chest pain or SOB. C/o moist cough with not much production. C/o itching with dressings on her next. Objective Vital Signs, Last 4 Hours Temp Pulse Resp BP Pulse Ox 10/09/18 10:00 60 18 147/57 100 10/09/18 09:00 60 18 146/55 100 10/09/18 08:07 98.1 F 10/09/18 08:00 60 18 133/96 100 General: Conversant, No Apparent Distress HEENT: Atraumatic, Normocephaly, Mucus Membranes Moist, Other (Hoarsness noted.) Neck: No JVD, Normal carotid pulses Cardiac: Other (Right neck TV pacer in place. V pacing at 60 bpm on telemetry) Lungs: Normal Breath Sounds, No Wheeze, Rales, Rhonchi Neuro: Alert and responsive, No focal deficits noted Abdomen: Soft, Non-Tender Skin: No rashes noted on visualized skin Musculoskeletal: No Chest Wall Tenderness Extremities: No Clubbing, No Cyanosis, No Edema, Normal Pulses Other: Sosa intact with clear yellow urine. Right groin soft with moderate amount of old ecchymosis noted. No tenderness with palpation. Results 10/09/18 03:45 10/09/18 03:45 Lab Results 10/08/18 10/08/18 10/09/18 10:51 18:07 03:45 WBC 9.3 Hgb 10.4 L Hct 33.1 L Plt Count 237 Sodium Potassium Chloride Carbon Dioxide BUN Creatinine Glucose Calcium Magnesium 2.6 Troponin I 6.89 H* 6.31 H* 10/09/18 03:45 WBC Hgb Hct Plt Count Sodium 142 Potassium 3.9 Chloride 105 Carbon Dioxide 28 BUN 52 H Creatinine 1.62 H Glucose 200 H Calcium 8.6 Magnesium Troponin I - Imaging and Cardiology Echo: report reviewed Cardiac cath: report reviewed - EKG Interpretation EKG results cardiology: personally reviewed Consult Discharge Plan - Plan Referrals: NONE,PCP [Primary Care Provider] -
--- NOTE | 2018-10-09 15:05 | Palliative Progress Note ---
Date of Encounter: 10/09/18 Time of Encounter: 11:00 - Assessment and plan (1) ST elevation myocardial infarction (STEMI) Current Visit: Yes Status: Acute Assessment and plan: Patient is s/p cath and stent placement. Pt had a cardiac arrest post cath and is now bradycardic. External pace in place, HR seems pacer dependent at this time. Management per cardiology. In case she fails to recover, she may need an implanted pacemaker. Qualifiers: Involved coronary artery: right coronary artery Qualified Code(s): I21.11 - ST elevation (STEMI) myocardial infarction involving right coronary artery (2) Goals of care, counseling/discussion Current Visit: Yes Status: Acute Assessment and plan: patient was update on current madical condition and plan per cardilogy. Explained that her heart is now needing to be paced, and that she may need a PPM. Patient nodded her head. Discussed code status, patient is not sure at this time what is in her living will, but she stated she did not want any rescussitation or penitentiary life support. Discussed intubation, pt doees not remember beig intbated, or the conversation she had about re-intubation. However, she would like to think more about intubation before a final decision. Call grand-daughter Jade [phone] and updated on clinical conditions as well as C conversation. All questions answered. (3) Generalized pain Current Visit: Yes Status: Acute Assessment and plan: Oxycodone prn in place - Time Spent With Patient Total time spent is greater than 50% in coordination of care (as documented) at patient's floor/unit and/or counseling patient: 25 - 35 minutes - Subjective Interval history: Patient was extubated, AAox3, she is complaining of lingering chest discomfort and feeling of throat irritation. Otherwise, she is feeling better. External pacer remains in place set at 50, current HR 49-50. - Constitutional Vitals: Abnormal lab results RBC 3.60 M/mcL (3.82-4.97) L 10/09/18 03:45 Hgb 10.4 g/dL (11.5-15.4) L 10/09/18 03:45 Hct 33.1 % (35.3-44.9) L 10/09/18 03:45 MCHC 31.4 g/dL (31.6-35.5) L 10/09/18 03:45 RDW 15.0 % (11.5-14.5) H 10/09/18 03:45 Nucleated RBCs/100 WBC 0.8 /100 WBC (0) H 10/09/18 03:45 BUN 52 mg/dL (8-23) H 10/09/18 03:45 Creatinine 1.62 mg/dL (0.60-1.20) H 10/09/18 03:45 Est GFR ( Amer) 38 (> 60) L 10/09/18 03:45 Est GFR (Non-Af Amer) 31 (> 60) L 10/09/18 03:45 BUN/Creatinine Ratio 32 (6-26) H 10/09/18 03:45 Glucose 200 mg/dL (70-105) H 10/09/18 03:45 POC Glucose 162 mg/dL (70-99) H 10/09/18 05:47 Calculated Osmolality 314 (280-300) H 10/09/18 03:45 Alkaline Phosphatase 162 Units/L (34-104) H 10/06/18 21:52 Troponin I 6.31 ng/mL (< 0.04) H* 10/08/18 18:07 LDL Cholesterol, Calc 131 mg/dL (0-99) H 10/07/18 01:00 Palliative Quality Palliative Quality: Screen for Code Status: Yes, Screen for Goals of Care: Yes, Screen for Pain: Yes, If Pain Regimen Started, Initiate Bowel Regimen: NA, Screen for Nausea/Vomitting: NA Code Status: 10/07/18 08:15 Resuscitation Status: Active [RES] Routine Comment: Resuscitation Status: DNR-Comfort Care-Arrest - Labs CBC & Chem 7: 10/09/18 03:45 10/09/18 03:45 Labs: Laboratory Results - last 24 hr 10/07/18 10/08/18 10/08/18 02:25 16:28 18:07 WBC RBC Hgb Hct MCV MCH MCHC RDW Plt Count MPV Immature Gran % Seg Neutrophils % Lymphocytes % Monocytes % Eosinophils % Basophils % Neutrophils # Lymphocytes # Monocytes # Eosinophils # Basophils # Nucleated RBCs/100 WBC Heparin Anti-Xa, Unfract 0.67 Sodium Potassium Chloride Carbon Dioxide BUN Creatinine Est GFR ( Amer) Est GFR (Non-Af Amer) BUN/Creatinine Ratio Glucose POC Glucose Calculated Osmolality Calcium Troponin I 6.31 H* Blood Type O NEGATIVE Antibody Screen NEGATIVE Crossmatch See Detail 10/08/18 10/08/18 10/08/18 18:12 22:50 23:37 WBC RBC Hgb Hct MCV MCH MCHC RDW Plt Count MPV Immature Gran % Seg Neutrophils % Lymphocytes % Monocytes % Eosinophils % Basophils % Neutrophils # Lymphocytes # Monocytes # Eosinophils # Basophils # Nucleated RBCs/100 WBC Heparin Anti-Xa, Unfract 0.70 Sodium Potassium Chloride Carbon Dioxide BUN Creatinine Est GFR ( Amer) Est GFR (Non-Af Amer) BUN/Creatinine Ratio Glucose POC Glucose 248 H 224 H Calculated Osmolality Calcium Troponin I Blood Type Antibody Screen Crossmatch 10/09/18 10/09/18 10/09/18 03:45 03:45 05:47 WBC 9.3 RBC 3.60 L Hgb 10.4 L Hct 33.1 L MCV 91.9 MCH 28.9 MCHC 31.4 L RDW 15.0 H Plt Count 237 MPV 9.8 Immature Gran % 1.4 Seg Neutrophils % 76.7 Lymphocytes % 11.5 Monocytes % 8.7 Eosinophils % 0.9 Basophils % 0.8 Neutrophils # 7.2 Lymphocytes # 1.1 Monocytes # 0.8 Eosinophils # 0.1 Basophils # 0.1 Nucleated RBCs/100 WBC 0.8 H Heparin Anti-Xa, Unfract Sodium 142 Potassium 3.9 Chloride 105 Carbon Dioxide 28 BUN 52 H Creatinine 1.62 H Est GFR ( Amer) 38 L Est GFR (Non-Af Amer) 31 L BUN/Creatinine Ratio 32 H Glucose 200 H POC Glucose 162 H Calculated Osmolality 314 H Calcium 8.6 Troponin I Blood Type Antibody Screen Crossmatch - Impressions Impressions Chest X-Ray 10/08/18 14:19 IMPRESSION: Mild pulmonary edema. D/ / 10/08/2018 19:01:17 Brandin Guerrero MD / bcarter Interpreting Provider: Brandin Guerrero MD - ABG Interpretation ABG results: ABG ABG pH 7.40 pH Units (7.32-7.45) 10/08/18 04:56 ABG pCO2 40 mmHg (35-45) 10/08/18 04:56 ABG pO2 85 mmHg (85-104) 10/08/18 04:56 ABG O2 Saturation 96 % (95-98) 10/08/18 04:56 PT/INR, D-dimer PT 11.3 Seconds (9.4-12.1) 10/07/18 19:50 Consult Discharge Plan - Plan Referrals: NONE,PCP [Primary Care Provider] -
[2018-10-10 03:17] LABS: Basophils # 0.1 K/mcL (0.0-0.2); Basophils % 0.8 %; Eosinophils # 0.4 K/mcL (0.0-0.6); Eosinophils % 4.1 %; Hematocrit 31.6 % (35.3-44.9); Hemoglobin 9.7 g/dL (11.5-15.4); Immature Granulocytes % 1.1 % (0-4); Lymphocytes # 1.5 K/mcL (0.6-4.6); Lymphocytes % 17.3 %; Mean Corpuscular HGB Conc 30.7 g/dL (31.6-35.5); Mean Corpuscular Hemoglobin 28.4 pg (28.0-33.3); Mean Corpuscular Volume 92.4 fL (83.0-100.0); Mean Platelet Volume 9.3 fL (9.4-12.4); Monocytes # 0.8 K/mcL (0.0-1.3); Monocytes % 9.7 %; Neutrophils # 5.7 K/mcL (1.6-8.9); Nucleated Red Blood Cells 0.8 /100 WBC (0); Platelet Count 223 K/mcL (140-400); Red Blood Count 3.42 M/mcL (3.82-4.97)
[2018-10-10 03:36] LABS: Calcium 8.6 mg/dL (8.6-10.3); Potassium 3.8 mEq/L (3.5-5.1)
[2018-10-10 04:58] LABS: Bilirubin,Urine Negative (Negative); Blood,Urine Large (Negative); Clarity,Urine Cloudy (Clear); Color,Urine Yellow (Yellow); Glucose,Urine (UA) >=1000 mg/dL (Normal); Ketones,Urine Negative (Negative); Leukocyte Esterase,Urine Moderate (Negative); Nitrite,Urine Negative (Negative); Protein,Urine Negative (Neg-Trace); Specific Gravity,Urine 1.026 (1.010-1.025); Urobilinogen,Urine Normal (Normal)
[2018-10-10 05:00] LABS: Squamous Epithelial Cell,Urine Few per lpf (None-Few); WBC,Urine TNTC per hpf (0-3)
[2018-10-10 05:22] LABS: Hyaline Casts,Urine None Seen per lpf (None-Few); Mucus,Urine Few (Few); RBC,Urine TNTC per hpf (0-3); Yeast,Urine Many per hpf (None Seen)
[2018-10-10 05:23] LABS: Bacteria,Urine Few per hpf (None-Few)
[2018-10-10] MEDS: Norepinephrine 4 MG in D5% in Water 250 ML IVC SCH ×2 (05:57→05:58)
--- NOTE | 2018-10-10 06:39 | Pulmonology Progress Note ---
<Chino Diehl S - Last Filed: 10/10/18 10:27> Date of Encounter: 10/10/18 Time of Encounter: 07:32 Assessment and Plan (1) ST elevation myocardial infarction (STEMI) Current Visit: Yes Status: Acute Pt presented 10/07/18 and was taken emergently to the production laborer where she was found to have 100% stenosis of the RCA, 80% stenosis of the mid circumflex - she had an episode of asystole, required ~30 seconds of chest compressions and was given 1x epinephrine - the pt was then intubated for inability to protect her airway - pt does have hx 2 previous stents EKG showed increased ST elevation inferiorly - she was given a dose of plavix and brillenta followed by low dose heparin protocol in the ER ECHO 10/07/18 LVEF 40-45% on ECHO with mild right ventricular hypokenesis, no valvular dysfxn CXR from 10/08/18 showed mild pulmonary edema Plan: - palliative consulted for goals of care - cardiology consulted, awaiting further recommendations for pacer patient at 50bpm on pacer, she is going in and out of her own intrinsic rate cardio to plan for PPM if needed continue pacer as per cardiology - hold lopressor as per cardiology, avoid AV vijay blockers - continue aspirin, plavix and lipitor - dopamine and levophed turned off at this time - pt successfuly extubated on 10/08/18 - BiPAP hs and prn - PTOT consulted - left A-line removed - pt okay to go to , 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 POA is Cosme (son) who is currently in [place]. Please see palliative consult note for further details. (3) Morbid obesity Current Visit: Yes Status: Acute BMI 59 (4) Elevated troponin Current Visit: Yes Status: Acute 0.3 --> .41 --> 3.01 --> 6.31 - likely type 1 (5) TATYANA (acute kidney injury) Current Visit: Yes Status: Acute Creatinine 1.53 on admission, currently 1.34 --> 1.58 --> 1.62 - trended down to 1.36 on 10/10/18 - TATYANA likely due to IV dye from cardiac cath Retroperitoneal US unremarkable UA showed TNTC WBC/RBC, few bacteria and moderate leukocyte esterase pt asymptomatic/afebrile and no white count, will hold off on abx Plan: Continue I&O, pretty cath. - continue to monitor renal fxn (6) CAD (coronary artery disease) Current Visit: Yes Status: Acute Continue aspirin, lipitor, plavix, and lopressor as per cardiology recommendations. Qualifiers: Coronary Disease-Associated Artery/Lesion type: unspecified vessel or lesion type [place] vs. transplanted heart: unspecified whether [place] or transplanted heart Associated angina: angina presence unspecified Qualified Code(s): I25.10 - Atherosclerotic heart disease of [place] coronary artery without angina pectoris (7) DVT prophylaxis Current Visit: Yes Status: Acute heparin drip (8) A-fib Current Visit: No Status: Chronic On heparin drip. Beta blockers held. Qualifiers: Atrial fibrillation type: unspecified Qualified Code(s): I48.91 - Unspecified atrial fibrillation Subjective Principal diagnosis: STEMI Interval history: Pt is seen at bedside. She was successfully extubated on 10/08/18. She has no acute concern or complaint. No acute overnight events. Objective PUL Vital signs: Last Vital Signs Temp 97.5 F L 10/10/18 03:57 Pulse 58 10/10/18 05:00 Resp 15 10/10/18 05:00 BP 122/62 10/10/18 05:00 Pulse Ox 97 10/10/18 05:00 General appearance: no acute distress Eyes: nonicteric ENT: oropharynx dry Auscultation: bilateral: diminished breath sounds Cardiovascular: irregular rhythm Gastrointestinal: other (obese abdomen, nontender to palpation, large pannus) Integumentary: rash, erythema, other (erythema and eccymosis of the right thigh from cardiac cath) Extremities: edema normal mental status, non-focal exam mood appropriate, affect normal Results - Laboratory Findings CBC and BMP: 10/10/18 03:05 10/10/18 03:05 ABG ABG pH 7.40 pH Units (7.32-7.45) 10/08/18 04:56 ABG pCO2 40 mmHg (35-45) 10/08/18 04:56 ABG pO2 85 mmHg (85-104) 10/08/18 04:56 ABG O2 Saturation 96 % (95-98) 10/08/18 04:56 PT/INR, D-dimer PT 11.3 Seconds (9.4-12.1) 10/07/18 19:50 Abnormal lab findings: Abnormal lab results RBC 3.42 M/mcL (3.82-4.97) L 10/10/18 03:05 Hgb 9.7 g/dL (11.5-15.4) L 10/10/18 03:05 Hct 31.6 % (35.3-44.9) L 10/10/18 03:05 MCHC 30.7 g/dL (31.6-35.5) L 10/10/18 03:05 RDW 15.0 % (11.5-14.5) H 10/10/18 03:05 MPV 9.3 fL (9.4-12.4) L 10/10/18 03:05 Nucleated RBCs/100 WBC 0.8 /100 WBC (0) H 10/10/18 03:05 BUN 48 mg/dL (8-23) H 10/10/18 03:05 Creatinine 1.36 mg/dL (0.60-1.20) H 10/10/18 03:05 Est GFR ( Amer) 46 (> 60) L 10/10/18 03:05 Est GFR (Non-Af Amer) 38 (> 60) L 10/10/18 03:05 BUN/Creatinine Ratio 35 (6-26) H 10/10/18 03:05 Glucose 142 mg/dL (70-105) H 10/10/18 03:05 POC Glucose 239 mg/dL (70-99) H 10/09/18 19:51 Calculated Osmolality 303 (280-300) H 10/10/18 03:05 Alkaline Phosphatase 162 Units/L (34-104) H 10/06/18 21:52 Troponin I 6.31 ng/mL (< 0.04) H* 10/08/18 18:07 LDL Cholesterol, Calc 131 mg/dL (0-99) H 10/07/18 01:00 Urine Clarity Cloudy (Clear) A 10/10/18 04:00 Ur Specific [place] 1.026 (1.010-1.025) H 10/10/18 04:00 Urine Glucose (UA) >=1000 mg/dL (Normal) H 10/10/18 04:00 Urine Blood Large (Negative) H 10/10/18 04:00 Ur Leukocyte Esterase Moderate (Negative) H 10/10/18 04:00 Urine Microscopic RBC TNTC per hpf (0-3) H 10/10/18 04:00 Urine Microscopic WBC TNTC per hpf (0-3) H 10/10/18 04:00 Urine Yeast Many per hpf (None Seen) H 10/10/18 04:00 - Clinical Findings Intake & Output: Intake & Output 10/09/18 10/09/18 10/10/18 15:59 23:59 07:59 Intake Total 60 / 60 250 / 250 131 / 131 Output Total 150 / 150 575 / 575 475 / 475 Balance -90 / -90 -325 / -325 -344 / -344 Weight 167.2 kg Consult Discharge Plan - Plan Referrals: NONE,PCP [Primary Care Provider] - <Linda Head - Last Filed: 10/10/18 16:34> Date of Encounter: 10/10/18 Objective PUL Vital signs: Last Vital Signs Temp 98.8 F 10/10/18 16:27 Pulse 60 10/10/18 15:00 Resp 16 10/10/18 15:00 BP 127/53 10/10/18 15:00 Pulse Ox 99 10/10/18 15:00 Results - Laboratory Findings CBC and BMP: 10/10/18 03:05 10/10/18 03:05 ABG ABG pH 7.40 pH Units (7.32-7.45) 10/08/18 04:56 ABG pCO2 40 mmHg (35-45) 10/08/18 04:56 ABG pO2 85 mmHg (85-104) 10/08/18 04:56 ABG O2 Saturation 96 % (95-98) 10/08/18 04:56 PT/INR, D-dimer PT 11.3 Seconds (9.4-12.1) 10/07/18 19:50 Abnormal lab findings: Abnormal lab results RBC 3.42 M/mcL (3.82-4.97) L 10/10/18 03:05 Hgb 9.7 g/dL (11.5-15.4) L 10/10/18 03:05 Hct 31.6 % (35.3-44.9) L 10/10/18 03:05 MCHC 30.7 g/dL (31.6-35.5) L 10/10/18 03:05 RDW 15.0 % (11.5-14.5) H 10/10/18 03:05 MPV 9.3 fL (9.4-12.4) L 10/10/18 03:05 Nucleated RBCs/100 WBC 0.8 /100 WBC (0) H 10/10/18 03:05 BUN 48 mg/dL (8-23) H 10/10/18 03:05 Creatinine 1.36 mg/dL (0.60-1.20) H 10/10/18 03:05 Est GFR ( Amer) 46 (> 60) L 10/10/18 03:05 Est GFR (Non-Af Amer) 38 (> 60) L 10/10/18 03:05 BUN/Creatinine Ratio 35 (6-26) H 10/10/18 03:05 Glucose 142 mg/dL (70-105) H 10/10/18 03:05 POC Glucose 239 mg/dL (70-99) H 10/09/18 19:51 Calculated Osmolality 303 (280-300) H 10/10/18 03:05 Alkaline Phosphatase 162 Units/L (34-104) H 10/06/18 21:52 Troponin I 6.31 ng/mL (< 0.04) H* 10/08/18 18:07 LDL Cholesterol, Calc 131 mg/dL (0-99) H 10/07/18 01:00 Urine Clarity Cloudy (Clear) A 10/10/18 04:00 Ur Specific [place] 1.026 (1.010-1.025) H 10/10/18 04:00 Urine Glucose (UA) >=1000 mg/dL (Normal) H 10/10/18 04:00 Urine Blood Large (Negative) H 10/10/18 04:00 Ur Leukocyte Esterase Moderate (Negative) H 10/10/18 04:00 Urine Microscopic RBC TNTC per hpf (0-3) H 10/10/18 04:00 Urine Microscopic WBC TNTC per hpf (0-3) H 10/10/18 04:00 Urine Yeast Many per hpf (None Seen) H 10/10/18 04:00 - Clinical Findings Intake & Output: Intake & Output 10/10/18 10/10/18 10/10/18 07:59 15:59 23:59 Intake Total 131 / 131 139 / 139 Output Total 475 / 475 600 / 600 250 / 250 Balance -344 / -344 -461 / -461 -250 / -250 Weight 167.2 kg - Attending Attestation I examined this patient and my medical decision-making was reviewed with the Resident Physician. I agree with the documented findings, disposition and treatment plan as described except to the extent set forth below. Patient seen and examined. Labs, radiology, chart personally reviewed. 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 GI: Nutrition per dietary and GI prophylaxis per routine Heme: DVT prophylaxis per routine Renal; urine out put and renal funtion reviewed Endorcine: blood glucose is monitored Lines: all lines checked and no evidence of infections Skin: skin care to prevent pressure ulcers per nursing routine care
[2018-10-10] MEDS: Insulin LISPRO 300 UNITS/3 ML VIAL SQ SCH ×4 (07:43→21:52)
[2018-10-10] MEDS: Aspirin 81 MG TAB.CHEW PO SCH (07:54)
[2018-10-10] MEDS: Pantoprazole 40 MG VIAL IVP SCH (07:54)
[2018-10-10] MEDS: Chlorhexidine Rinse 15 ML MOUTHWASH MM SCH (07:54)
--- NOTE | 2018-10-10 07:59 | Electrocardiograph Report ---
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
[2018-10-10] MEDS ORDERED: *HR* Heparin 5,000 UNIT/ML VIAL IVP PRN ×2 (08:06)
[2018-10-10] MEDS ORDERED: *HR* Dextrose 50 % in Water (Syg) 50 ML SYRINGE IVP PRN (08:06)
[2018-10-10] MEDS ORDERED: Dextrose 4 GM Chewable Tablets PO PRN ×2 (08:06)
[2018-10-10] MEDS ORDERED: Dextrose Gel 15 GM/37.5 ML TUBE PO PRN ×2 (08:06)
[2018-10-10] MEDS ORDERED: D5% in Water 1,000 ML IVC PRN (08:06)
[2018-10-10] MEDS ORDERED: Chlorhexidine Rinse 15 ML MOUTHWASH MM SCH (09:00)
[2018-10-10] MEDS ORDERED: Pantoprazole 40 MG VIAL IVP SCH (09:00)
[2018-10-10] MEDS ORDERED: Aspirin 81 MG TAB.CHEW PO SCH (09:00)
[2018-10-10] MEDS: Aspirin Enteric Coated 81 MG Tablet PO SCH (09:41)
[2018-10-10] MEDS ORDERED: CeFAZolin Syr 2,000MG/20 ML 2,000 MG/20 ML SYRINGE IVPB ONE (10:17)
[2018-10-10] MEDS: Ondansetron 4 MG/2 ML VIAL IVP PRN ×2 (10:18→21:45)
[2018-10-10] MEDS: Heparin 25,000 UNIT/250 ML D5W 25,000 UNIT/250 ML IV.SOLN IVC SCH ×2 (10:21→21:58)
--- NOTE | 2018-10-10 10:36 | Event Note ---
Date of Encounter: 10/10/18 Time of Encounter: 10:31 - Cardiology Event Note TV in place and set at 50 bpm. EP consulted to evaluate for PPM need. Rhythm strips, telemetry and EKG reviewed with Dr. Eliot Marrero. Intermittent pacing seen through the night and this morning. Atrial fibrillation with RVR up to 140- 150 BPM seen last night. Seen to have intermittent runs of non-sustained VT up to 5 beats. Concern for tachybrady syndrome. Patient will need AV marcy to control PAF and NSVT. TTE reviewed: EF 40-45%. Segmental WMA. Moderate LVH. Mild RV hypokenesis. C3/08/26- 100% stenosis proximal RCA s/p PTCA and UMA. 80% stenosis mLCX artery. Medical management recommended for remaining disease. 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 Risk verses benefit discussed and she agrees to proceed. Hold heparin gtt. Suspect patient can step down to 2N after PPM.
--- NOTE | 2018-10-10 10:49 | Event Note ---
Date of Encounter: 10/10/18 Time of Encounter: 10:45 Patient was seen this morning in ICU, AAOx3, she was feeling nauseous and uncomfortable for being in bed so long. There is a plan for PPM today, pt is aware and agreeable. She remains DNRCCA. Palliative care will continue to follow from a distance at this time.
[2018-10-10] MEDS ORDERED: 0.9 % Sodium Chloride 500 ML ONE (12:32)
[2018-10-10] MEDS ORDERED: Water for inj. (sterile) 10 ML IV ONE (12:32)
--- NOTE | 2018-10-10 12:38 | Pre-Sedation Evaluation ---
Pre-sedation evaluation - Pre-sedation checklist Date of procedure: 10/10/18 Recent Vitals: Last Vital Signs Temp 97.6 F 10/10/18 12:35 Pulse 55 10/10/18 12:00 Resp 16 10/10/18 12:00 BP 117/45 10/10/18 12:00 Pulse Ox 98 10/10/18 12:00 H&P (including ROS) documented in medical record: Yes Previous reaction to sedatives/anesthetics: No Dietary Status: Clear fluids after Midnight Airway Assessment: Patient can open mouth completely, TMJ function normal, Micrognathia (under-bite, receding chin) absent Dentition: No loose teeth or bridges Possible difficult airway: No ASA Classification *see protocol: CLASS II-Mild systemic disease Plan of Care: Pt appropriate candidate for procedure/moderate/conscious sedation, Risks/benefits of procedure/sedation discussed w/ patient/family
[2018-10-10] MEDS ORDERED: 0.9 % Sodium Chloride 1,000 ML ONE (12:56)
[2018-10-10] MEDS ORDERED: *HR* FentaNYL (PF) 100 MCG/2 ML VIAL ONE (13:14)
[2018-10-10] MEDS ORDERED: *HR* Midazolam HCl 2 MG/2 ML VIAL ONE (13:14)
[2018-10-10] MEDS ORDERED: *HR* Atropine Sulfate 1 MG/10 ML SYRINGE ONE (14:30)
--- NOTE | 2018-10-10 15:18 | Event Note ---
<Chino Diehl S - Last Filed: 10/10/18 15:18> Date of Encounter: 10/10/18 Time of Encounter: 15:17 Spoke to pt abot CODE STATUS because it was changed back in the computer for the procedure. I did discuss w the patient what she wanted for code status. At this time she wishes to be a FULL CODE. <Linda Head M - Last Filed: 10/10/18 17:05> Date of Encounter: 10/10/18 The history, physical exam, and medical decision making was performed by the medical student either while I was physically present and actively involved or I personally re-performed the exam and medical decision making. I have verified the accuracy of the medical student's documentation with regards to the history, physical exam findings, and medical decision making.
[2018-10-10] MEDS: Metoprolol XL (24 HR) Succ 25 MG TAB.ER.24H PO SCH (16:13)
--- NOTE | 2018-10-10 16:42 | Electrocardiograph Report ---
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
--- NOTE | 2018-10-10 21:12 | Electrocardiograph Report ---
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
[2018-10-11 04:33] LABS: Basophils # 0.1 K/mcL (0.0-0.2); Eosinophils # 0.4 K/mcL (0.0-0.6); Eosinophils % 5.8 %; Hematocrit 29.5 % (35.3-44.9); Hemoglobin 9.3 g/dL (11.5-15.4); Immature Granulocytes % 1.6 % (0-4); Lymphocytes # 0.8 K/mcL (0.6-4.6); Lymphocytes % 13.3 %; Mean Corpuscular HGB Conc 31.5 g/dL (31.6-35.5); Mean Corpuscular Hemoglobin 29.2 pg (28.0-33.3); Mean Corpuscular Volume 92.5 fL (83.0-100.0); Mean Platelet Volume 9.1 fL (9.4-12.4); Monocytes # 0.6 K/mcL (0.0-1.3); Monocytes % 9.4 %; Neutrophils # 4.3 K/mcL (1.6-8.9); Nucleated Red Blood Cells 0.6 /100 WBC (0); Platelet Count 233 K/mcL (140-400); Red Blood Count 3.19 M/mcL (3.82-4.97); Red Cell Distribution Width 14.9 % (11.5-14.5); Segmented Neutrophils % 68.9 %
[2018-10-11 04:49] LABS: BUN/Creatinine Ratio 33 (6-26); Blood Urea Nitrogen 34 mg/dL (8-23); Calcium 8.4 mg/dL (8.6-10.3); Carbon Dioxide 27 mEq/L (23-29); Chloride 104 mEq/L (98-107); Glucose 157 mg/dL (70-105); Osmolality,Calculated 301 (280-300); Potassium 3.8 mEq/L (3.5-5.1); Sodium 140 mEq/L (136-145); eGFR For Non-African Americans 53 (> 60)
[2018-10-11] MEDS: Metoprolol XL (24 HR) Succ 25 MG TAB.ER.24H PO SCH (07:59)
[2018-10-11] MEDS: Aspirin Enteric Coated 81 MG Tablet PO SCH (07:59)
[2018-10-11] MEDS: Heparin 25,000 UNIT/250 ML D5W 25,000 UNIT/250 ML IV.SOLN IVC SCH (08:03)
[2018-10-11] MEDS: Insulin LISPRO 300 UNITS/3 ML VIAL SQ SCH ×4 (08:06→20:16)
[2018-10-11] MEDS: OXYCODONE Oral CONC 10 MG/0.5 ML ORAL.SYG SL PRN ×2 (12:47→20:17)
--- NOTE | 2018-10-11 12:49 | Cardiology Progress Note ---
Date of Encounter: 10/11/18 Time of Encounter: 10:30 Assessment and Plan (1) ST elevation myocardial infarction (STEMI) Current Visit: Yes Status: Acute Per cardiology: -Inferior ST elevation [place] status post UMA to proximal right coronary artery. During her sheath pull with compression she developed bradycardia and long sinus pause and was given brief CPR by nursing staff. Per record she received atropine and epinephrine during that time. Due to concern for bradycardia a temporary pacer was placed. She required dopamine and levophed for hypotension. These gtt are now off. -Right groin soft with no hematoma. -TTE shows ejection fraction 40-45% on echo with mild right ventricular hypokinesis. -Continue aspirin 81 mg daily, Plavix 75 mg daily, high intensity statin. Beta marcy. -Reports chest pain this morning that is reproduceable with palpation. -Repeat ECG today with no acute ischemic changes. -Suspect chest pain related to CPR, recent pacemaker. -Dual anti-platelet therapy uninterrupted for at least one year. -Stepped out of ICU today. -Will continue to monitor. Qualifiers: Involved coronary artery: right coronary artery Qualified Code(s): I21.11 - ST elevation (STEMI) myocardial infarction involving right coronary artery (2) Bradycardia Current Visit: Yes Status: Acute Per cardiology: -Bradycardia in the setting of right coronary stenosis. Had required temporary pacemaker and s/p PPM yesterday. -Chest x-ray post device and this am without evidence of pneumothorax. -Device checked by [employer] with normal functioning pacemaker. -Will continue to monitor. (3) Acute systolic CHF (congestive heart failure), NYHA class 3 Current Visit: Yes Status: Acute Per cardiology: -Chest x-ray shows mild congestion. Repeat cxr unchanged. Patient with mild acute systolic CHF. -IV Lasix 20 mg daily initially given. No significant fluid over load on exam. -Scr improved today. -Denies SOB. -Will continue to hold lasix. Consider addition of lasix prior to discharge. -strict I and O. Fluid restriction. -COnsider addition of cristopher/arb prior to discharge. (4) Paroxysmal A-fib Current Visit: Yes Status: Acute Per cardiology: -H/o afib. On Xarelto from home. -on bb. -On IV heparin with close monitoring of hemoglobin. (5) Respiratory failure requiring intubation Current Visit: Yes Status: Acute Per cardiology: -Chest x-ray shows mild congestion. Patient with acute systolic CHF. Given IV diuresis. Now on hold due to Scr elevation and concern for RV dyfuction. -Now extubated to nasal cannula and weaned to 2L. Discussion w patient/family: The assessment and plan as outlined above was discussed with the patient who expressed understanding and agreement. All questions were answered. Thank you for involving us in the care of your patient. Please call with any questions. Discussed and reviewed with and Dr.John Marrero. Subjective Principal diagnosis: STEMI Interval history: Patient is s/p pacemaker yesterday. Reports some chest discomfort this am. Chest pain reproduceable with palpation. Objective Vital Signs, Last 4 Hours Temp Pulse Resp BP Pulse Ox 10/11/18 11:20 97.6 F 70 20 149/59 95 10/11/18 11:15 97.6 F 70 20 149/59 95 General: Conversant, No Apparent Distress HEENT: Atraumatic, Normocephaly, Mucus Membranes Moist Neck: No JVD, Normal carotid pulses Cardiac: Reg Rate and Rhythm, Normal S1 and S2, No Murmur Lungs: Normal Breath Sounds, No Wheeze, Rales, Rhonchi Neuro: Alert and responsive, No focal deficits noted Abdomen: Soft, Non-Tender Skin: No rashes noted on visualized skin, Other (Left chest wall dressing clean, dry, intact. ) Musculoskeletal: Other (Chest pain reproduceable with palpation. ) Extremities: No Clubbing, No Cyanosis, Normal Pulses, Other (Mild bilateral lower extremity pedal edema, non-pitting. ) Results 10/11/18 04:00 10/11/18 04:00 Lab Results Impressions Chest X-Ray 10/10/18 14:09 IMPRESSION: Interval placement of a cardiac pacer. No pneumothorax. D/ / Kala Collier MD / Kala Collier MD Interpreting Provider: Kala Collier MD Chest X-Ray 10/11/18 06:00 IMPRESSION: Mild pulmonary vascular congestion. Stable mild cardiomegaly. Prominence of the bilateral hilar structures, likely related to pulmonary hypertension. D/ / Abrahan Pollock MD / Abrahan Pollock MD Interpreting Provider: Abrahan Pollock MD Laboratory Tests 10/10/18 10/11/18 10/11/18 03:05 04:00 04:00 Hgb 9.3 L Creatinine 1.36 H 1.03 Active Medications Acetaminophen (Tylenol) 500 mg PO Q6HR PRN PRN Reason: Mild Pain Stop: 04/07/19 20:37 Last Admin: 10/11/18 02:13 Dose: 500 mg Aspirin (Aspirin Ec) 81 mg PO DAILY HEMA Stop: 04/11/19 09:01 Last Admin: 10/11/18 07:59 Dose: 81 mg Atorvastatin Calcium (Lipitor) 80 mg PO HS HEMA Stop: 04/07/19 21:01 Last Admin: 10/10/18 21:45 Dose: 80 mg Clopidogrel Bisulfate (Plavix) 75 mg PO DAILY HEMA Stop: 04/08/19 09:01 Last Admin: 10/11/18 08:00 Dose: 75 mg Dextrose (Glucose Tablets) 28 gm PO ONCE PRN PRN Reason: Hypoglycemia Stop: 04/09/19 12:31 Dextrose (Glucose Tablets) 16 gm PO ONCE PRN PRN Reason: Hypoglycemia Stop: 04/09/19 12:31 Dextrose/Water (Dextrose 50% (Syg)) 25 ml IVP AD PRN PRN Reason: Hypoglycemia Stop: 04/09/19 12:31 Glucagon (Glucagen) 1 mg IM ONCE PRN PRN Reason: Hypoglycemia Stop: 04/09/19 12:31 Glucose (Gluctose) 15 gm PO ONCE PRN PRN Reason: Hypoglycemia Stop: 04/09/19 12:31 Glucose (Gluctose) 30 gm PO ONCE PRN PRN Reason: Hypoglycemia Stop: 04/09/19 12:31 Heparin Sodium (Porcine) (Heparin) 9,000 unit IVP Q6HR PRN PRN Reason: SEE COMMENTS Stop: 04/08/19 19:44 Heparin Sodium (Porcine) (Heparin) 4,500 unit IVP Q6H PRN PRN Reason: SEE COMMENTS Stop: 04/08/19 19:44 Dextrose (Dextrose 5%) 1,000 mls @ 100 mls/hr IVC .Q10H PRN PRN Reason: HYPOGLYCEMIA Stop: 04/09/19 12:31 Heparin Sodium/Dextrose (Heparin 25,000 Unit/250 Ml D5w) 25,000 unit in 250 mls @ 23.464 mls/hr IVC .[id number] [facility]; Protocol Stop: 04/08/19 19:46 Last Admin: 10/11/18 08:03 Dose: 12 unit/kg/hr, 20.1 mls/hr Insulin Human Lispro (Humalog) 0 units SQ ACHS [facility]; Protocol Stop: 04/10/19 18:01 Last Admin: 10/11/18 11:32 Dose: 8 units Metoprolol Succinate (Toprol Xl) 12.5 mg PO DAILY HEMA Stop: 04/11/19 16:01 Last Admin: 10/11/18 07:59 Dose: 12.5 mg Omeprazole (Prilosec) 40 mg PO 0630 [facility]; Protocol Stop: 04/11/19 09:01 Last Admin: 10/11/18 07:05 Dose: 40 mg Ondansetron HCl (Zofran) 4 mg IVP Q6HR PRN; Protocol PRN Reason: Nausea And Vomiting Stop: 04/09/19 14:12 Last Admin: 10/10/18 21:45 Dose: 4 mg Oxycodone HCl (Oxycodone Oral Conc) 5 mg SL Q6HR PRN; Protocol PRN Reason: Moderate Pain Stop: 04/09/19 19:10 Last Admin: 10/11/18 12:47 Dose: 5 mg - Imaging and Cardiology Chest Xray: report reviewed Echo: report reviewed Cardiac cath: report reviewed - EKG Interpretation EKG results cardiology: other (Telemetry reviewed with average HR previous 12 hours noted to be 61, paced rhythm. PVCs noted.) Consult Discharge Plan - Plan Referrals: NONE,PCP [Primary Care Provider] -
--- NOTE | 2018-10-11 14:29 | Event Note ---
Date of Encounter: 10/11/18 Time of Encounter: 14:20 Patient today was AAOx3, complaining of pain in her left side due to skin irritation by the bedding, and some nausea after eating. She also complained of some chest soreness in the area of the pacemaker. PPM was placed yesterday and she tolerated the procedure well. Discussed code status, patient stated she has been thinking about the different options, and at this time, she would like all to be tried if she had some chance of recovery. She does not want any senior living life support. Patient was advised that her code status will then be FULL CODE. She is agreeable. Nurse was advised to attempt some position change or change in the bedding to relieve pressure on pt's side. Oxycodone in place for pain. Thank you for allowing us to participate in the care of this patient, palliative care will sign off. Please reconsult prn.
[2018-10-11] MEDS: *HR* Heparin 5,000 UNIT/ML VIAL SQ SCH (17:56)
--- NOTE | 2018-10-11 19:24 | Electrocardiograph Report ---
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
[2018-10-12] MEDS: OXYCODONE Oral CONC 10 MG/0.5 ML ORAL.SYG SL PRN ×3 (04:04→20:12)
[2018-10-12] MEDS: *HR* Heparin 5,000 UNIT/ML VIAL SQ SCH ×2 (06:23→17:43)
[2018-10-12] MEDS: Insulin LISPRO 300 UNITS/3 ML VIAL SQ SCH ×4 (08:51→20:13)
[2018-10-12] MEDS: Aspirin Enteric Coated 81 MG Tablet PO SCH (08:52)
[2018-10-12] MEDS: Metoprolol XL (24 HR) Succ 25 MG TAB.ER.24H PO SCH (08:52)
[2018-10-12 09:08] LABS: Basophils # 0.1 K/mcL (0.0-0.2); Basophils % 1.1 %; Eosinophils # 0.3 K/mcL (0.0-0.6); Hematocrit 33.4 % (35.3-44.9); Hemoglobin 10.3 g/dL (11.5-15.4); Immature Granulocytes % 2.8 % (0-4); Lymphocytes # 0.6 K/mcL (0.6-4.6); Lymphocytes % 11.1 %; Mean Corpuscular HGB Conc 30.8 g/dL (31.6-35.5); Mean Corpuscular Hemoglobin 28.6 pg (28.0-33.3); Mean Corpuscular Volume 92.8 fL (83.0-100.0); Mean Platelet Volume 8.8 fL (9.4-12.4); Monocytes # 0.5 K/mcL (0.0-1.3); Monocytes % 9.8 %; Neutrophils # 3.8 K/mcL (1.6-8.9); Nucleated Red Blood Cells 0.9 /100 WBC (0); Platelet Count 252 K/mcL (140-400); Red Cell Distribution Width 15.1 % (11.5-14.5); Segmented Neutrophils % 70.2 %
[2018-10-12 09:26] LABS: BUN/Creatinine Ratio 22 (6-26); Blood Urea Nitrogen 21 mg/dL (8-23); Calcium 9.1 mg/dL (8.6-10.3); Carbon Dioxide 29 mEq/L (23-29); Chloride 102 mEq/L (98-107); Glucose 155 mg/dL (70-105); Osmolality,Calculated 294 (280-300); Potassium 4.1 mEq/L (3.5-5.1); Sodium 139 mEq/L (136-145); eGFR For Non-African Americans 57 (> 60)
--- NOTE | 2018-10-12 10:50 | Cardiology Progress Note ---
Date of Encounter: 10/12/18 Time of Encounter: 08:30 Assessment and Plan (1) ST elevation myocardial infarction (STEMI) Current Visit: Yes Status: Acute Per cardiology: -Inferior ST elevation [place] status post UMA to proximal right coronary artery. During her sheath pull with compression she developed bradycardia and long sinus pause and was given brief CPR by nursing staff. Per record she received atropine and epinephrine during that time. Due to concern for bradycardia a temporary pacer was placed. She required dopamine and levophed for hypotension. These gtt are now off. -Right groin soft with no hematoma, large ecchymosis noted. -TTE shows ejection fraction 40-45% on echo with mild right ventricular hypokinesis. -Continue aspirin 81 mg daily, Plavix 75 mg daily, high intensity statin. Beta marcy. -Denies chest pain. -Dual anti-platelet therapy uninterrupted for at least one year. -Awaiting placement in rehab facility. -Will continue to monitor. Qualifiers: Involved coronary artery: right coronary artery Qualified Code(s): I21.11 - ST elevation (STEMI) myocardial infarction involving right coronary artery (2) Bradycardia Current Visit: Yes Status: Acute Per cardiology: -Bradycardia in the setting of right coronary stenosis. Had required temporary pacemaker and s/p PPM. -Chest x-ray post device and this am without evidence of pneumothorax. -Device checked by [employer] with normal functioning pacemaker. -Will continue to monitor. (3) Acute systolic CHF (congestive heart failure), NYHA class 3 Current Visit: Yes Status: Acute Per cardiology: -Chest x-ray shows mild congestion. Repeat cxr unchanged. Patient with mild acute systolic CHF. -IV Lasix 20 mg daily initially given. No significant fluid over load on exam. -Scr improved today. -Denies SOB. -Will continue to hold lasix. Consider addition of lasix prior to discharge. -strict I and O. Fluid restriction. -COnsider addition of cristopher/arb prior to discharge. (4) Paroxysmal A-fib Current Visit: Yes Status: Acute Per cardiology: -H/o afib. -on bb. -Discussed with , who recommends holding anticoagulation for 1 week post pacemaker. (5) Respiratory failure requiring intubation Current Visit: Yes Status: Acute Per cardiology: -Chest x-ray shows mild congestion. Patient with acute systolic CHF. Given IV diuresis. Now on hold due to Scr elevation and concern for RV dyfuction. -Now extubated to nasal cannula and weaned to 2L. Discussion w patient/family: The assessment and plan as outlined above was discussed with the patient who expressed understanding and agreement. All questions were answered. Thank you for involving us in the care of your patient. Please call with any questions. Discussed and reviewed with Subjective Principal diagnosis: STEMI Interval history: Patient denies chest pain today. Denies complaints. Objective Vital Signs, Last 4 Hours Temp Pulse Resp BP Pulse Ox 10/12/18 07:20 97.7 F 63 20 140/62 100 General: Conversant, No Apparent Distress HEENT: Atraumatic, Normocephaly, Mucus Membranes Moist Neck: No JVD, Normal carotid pulses Cardiac: Reg Rate and Rhythm, Normal S1 and S2, No Murmur Lungs: Normal Breath Sounds, No Wheeze, Rales, Rhonchi Neuro: Alert and responsive, No focal deficits noted Abdomen: Soft, Non-Tender Skin: No rashes noted on visualized skin, Other (Right groin access site with large area of ecchymosis, no hematoma. Left chest wall steri-strips clean, dry, intact. ) Musculoskeletal: No Chest Wall Tenderness Extremities: No Clubbing, No Cyanosis, No Edema, Normal Pulses Results 10/12/18 08:50 10/12/18 08:50 Lab Results Impressions Chest X-Ray 10/11/18 06:00 IMPRESSION: Mild pulmonary vascular congestion. Stable mild cardiomegaly. Prominence of the bilateral hilar structures, likely related to pulmonary hypertension. D/ / Abrahan Pollock MD / Abrahan Pollock MD Interpreting Provider: Abrahan Pollock MD Active Medications Acetaminophen (Tylenol) 500 mg PO Q6HR PRN PRN Reason: Mild Pain Stop: 04/07/19 20:37 Last Admin: 10/12/18 09:11 Dose: 500 mg Aspirin (Aspirin Ec) 81 mg PO DAILY HEMA Stop: 04/11/19 09:01 Last Admin: 10/12/18 08:52 Dose: 81 mg Atorvastatin Calcium (Lipitor) 80 mg PO HS HEMA Stop: 04/07/19 21:01 Last Admin: 10/11/18 20:15 Dose: 80 mg Clopidogrel Bisulfate (Plavix) 75 mg PO DAILY [facility] OF [facility] Stop: 04/08/19 09:01 Last Admin: 10/12/18 08:52 Dose: 75 mg Dextrose (Glucose Tablets) 28 gm PO ONCE PRN PRN Reason: Hypoglycemia Stop: 04/09/19 12:31 Dextrose (Glucose Tablets) 16 gm PO ONCE PRN PRN Reason: Hypoglycemia Stop: 04/09/19 12:31 Dextrose/Water (Dextrose 50% (Syg)) 25 ml IVP AD PRN PRN Reason: Hypoglycemia Stop: 04/09/19 12:31 Glucagon (Glucagen) 1 mg IM ONCE PRN PRN Reason: Hypoglycemia Stop: 04/09/19 12:31 Glucose (Gluctose) 15 gm PO ONCE PRN PRN Reason: Hypoglycemia Stop: 04/09/19 12:31 Glucose (Gluctose) 30 gm PO ONCE PRN PRN Reason: Hypoglycemia Stop: 04/09/19 12:31 Heparin Sodium (Porcine) (Heparin) 5,000 unit SQ Q12HCO ON [facility] OF [facility] Stop: 04/12/19 18:01 Last Admin: 10/12/18 06:23 Dose: 5,000 unit Dextrose (Dextrose 5%) 1,000 mls @ 100 mls/hr IVC .Q10H PRN PRN Reason: HYPOGLYCEMIA Stop: 04/09/19 12:31 Insulin Human Lispro (Humalog) 0 units SQ ACHS [facility]; Protocol Stop: 04/10/19 18:01 Last Admin: 10/12/18 08:51 Dose: Not Given Metoprolol Succinate (Toprol Xl) 12.5 mg PO DAILY [facility] Stop: 04/11/19 16:01 Last Admin: 10/12/18 08:52 Dose: 12.5 mg Omeprazole (Prilosec) 40 mg PO 0630 [facility]; Protocol Stop: 04/11/19 09:01 Last Admin: 10/12/18 06:22 Dose: 40 mg Ondansetron HCl (Zofran) 4 mg IVP Q6HR PRN; Protocol PRN Reason: Nausea And Vomiting Stop: 04/09/19 14:12 Last Admin: 10/10/18 21:45 Dose: 4 mg Oxycodone HCl (Oxycodone Oral Conc) 5 mg SL Q6HR PRN; Protocol PRN Reason: Moderate Pain Stop: 04/09/19 19:10 Last Admin: 10/12/18 04:04 Dose: 5 mg Laboratory Tests 10/11/18 10/12/18 10/12/18 04:00 08:50 08:50 Hgb 9.3 L 10.3 L Potassium 4.1 Creatinine 0.97 - Imaging and Cardiology Chest Xray: report reviewed Echo: report reviewed Cardiac cath: report reviewed - EKG Interpretation EKG results cardiology: other (Telemetry reviewed with average HR previous 12 hours noted to be 61, paced rhythm.) Consult Discharge Plan - Plan Referrals: NONE,PCP [Primary Care Provider] -
--- NOTE | 2018-10-12 20:40 | Electrocardiograph Report ---
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
[2018-10-13] MEDS: OXYCODONE Oral CONC 10 MG/0.5 ML ORAL.SYG SL PRN ×2 (04:21→11:38)
[2018-10-13] MEDS: *HR* Heparin 5,000 UNIT/ML VIAL SQ SCH ×2 (06:15→16:37)
[2018-10-13] MEDS: Insulin LISPRO 300 UNITS/3 ML VIAL SQ SCH ×4 (07:49→21:03)
[2018-10-13] MEDS: Aspirin Enteric Coated 81 MG Tablet PO SCH (07:51)
[2018-10-13] MEDS: Metoprolol XL (24 HR) Succ 25 MG TAB.ER.24H PO SCH (07:51)
--- NOTE | 2018-10-13 10:34 | Cardiology Progress Note ---
Date of Encounter: 10/13/18 Time of Encounter: 09:00 Assessment and Plan (1) ST elevation myocardial infarction (STEMI) Current Visit: Yes Status: Acute Per cardiology: -Inferior ST elevation [place] status post UMA to proximal right coronary artery. During her sheath pull with compression she developed bradycardia and long sinus pause and was given brief CPR by nursing staff. Per record she received atropine and epinephrine during that time. Due to concern for bradycardia a temporary pacer was placed. She required dopamine and levophed for hypotension. These gtt are now off. -Right groin soft with no hematoma, large ecchymosis noted. -TTE shows ejection fraction 40-45% on echo with mild right ventricular hypokinesis. -Continue aspirin 81 mg daily, Plavix 75 mg daily, high intensity statin. Beta marcy. -Denies chest pain. -Dual anti-platelet therapy uninterrupted for at least one year. -Awaiting placement in rehab facility. -Will continue to monitor. Qualifiers: Involved coronary artery: right coronary artery Qualified Code(s): I21.11 - ST elevation (STEMI) myocardial infarction involving right coronary artery (2) Bradycardia Current Visit: Yes Status: Acute Per cardiology: -Bradycardia in the setting of right coronary stenosis. Had required temporary pacemaker and s/p PPM. -Chest x-ray post device and this am without evidence of pneumothorax. -Device checked by [employer] with normal functioning pacemaker. -Will continue to monitor. (3) Acute systolic CHF (congestive heart failure), NYHA class 3 Current Visit: Yes Status: Acute Per cardiology: -Chest x-ray shows mild congestion. Repeat cxr unchanged. Patient with mild acute systolic CHF. -IV Lasix 20 mg daily initially given. No significant fluid over load on exam. -Scr improved today. -Denies SOB. -Will continue to hold lasix. Consider addition of lasix prior to discharge. -Will add low dose cristopher inhibitor. -strict I and O. Fluid restriction. (4) Paroxysmal A-fib Current Visit: Yes Status: Acute Per cardiology: -H/o afib. -on bb. -Discussed with , who recommends holding anticoagulation for 1 week post pacemaker. (5) Respiratory failure requiring intubation Current Visit: Yes Status: Acute Per cardiology: -Chest x-ray shows mild congestion. Patient with acute systolic CHF. Given IV diuresis. Now on hold due to Scr elevation and concern for RV dyfuction. -Now extubated to nasal cannula and weaned to room air Discussion w patient/family: The assessment and plan as outlined above was discussed with the patient who expressed understanding and agreement. All questions were answered. Thank you for involving us in the care of your patient. Please call with any questions. Discussed and reviewed with Subjective Principal diagnosis: STEMI Interval history: Patient denies chest pain today. Denies complaints. Objective Vital Signs, Last 4 Hours Temp Pulse Resp BP Pulse Ox 10/13/18 09:35 141/55 10/13/18 07:53 62 10/13/18 07:29 97.6 F 68 18 132/55 100 General: Conversant, No Apparent Distress HEENT: Atraumatic, Normocephaly, Mucus Membranes Moist Neck: No JVD, Normal carotid pulses Cardiac: Reg Rate and Rhythm, Normal S1 and S2, No Murmur Lungs: Normal Breath Sounds, No Wheeze, Rales, Rhonchi Neuro: Alert and responsive, No focal deficits noted Abdomen: Soft, Non-Tender Skin: No rashes noted on visualized skin, Other (Right groin access site with large area of ecchymosis, no hematoma. Left chest wall steri-strips clean, dry, intact. ) Musculoskeletal: No Chest Wall Tenderness Extremities: No Clubbing, No Cyanosis, No Edema, Normal Pulses Results 10/12/18 08:50 10/12/18 08:50 Active Medications Acetaminophen (Tylenol) 500 mg PO Q6HR PRN PRN Reason: Mild Pain Stop: 04/07/19 20:37 Last Admin: 10/13/18 06:14 Dose: 500 mg Aspirin (Aspirin Ec) 81 mg PO DAILY [facility] Stop: 04/11/19 09:01 Last Admin: 10/13/18 07:51 Dose: 81 mg Atorvastatin Calcium (Lipitor) 80 mg PO HS [facility] Stop: 04/07/19 21:01 Last Admin: 10/12/18 20:12 Dose: 80 mg Clopidogrel Bisulfate (Plavix) 75 mg PO DAILY [facility] Stop: 04/08/19 09:01 Last Admin: 10/13/18 07:51 Dose: 75 mg Dextrose (Glucose Tablets) 28 gm PO ONCE PRN PRN Reason: Hypoglycemia Stop: 04/09/19 12:31 Dextrose (Glucose Tablets) 16 gm PO ONCE PRN PRN Reason: Hypoglycemia Stop: 04/09/19 12:31 Dextrose/Water (Dextrose 50% (Syg)) 25 ml IVP AD PRN PRN Reason: Hypoglycemia Stop: 04/09/19 12:31 Glucagon (Glucagen) 1 mg IM ONCE PRN PRN Reason: Hypoglycemia Stop: 04/09/19 12:31 Glucose (Gluctose) 15 gm PO ONCE PRN PRN Reason: Hypoglycemia Stop: 04/09/19 12:31 Glucose (Gluctose) 30 gm PO ONCE PRN PRN Reason: Hypoglycemia Stop: 04/09/19 12:31 Heparin Sodium (Porcine) (Heparin) 5,000 unit SQ Q12HCO [facility] Stop: 04/12/19 18:01 Last Admin: 10/13/18 06:15 Dose: 5,000 unit Dextrose (Dextrose 5%) 1,000 mls @ 100 mls/hr IVC .Q10H PRN PRN Reason: HYPOGLYCEMIA Stop: 04/09/19 12:31 Insulin Human Lispro (Humalog) 0 units SQ ACHS [facility]; Protocol Stop: 04/10/19 18:01 Last Admin: 10/13/18 07:49 Dose: Not Given Metoprolol Succinate (Toprol Xl) 12.5 mg PO DAILY [facility] Stop: 04/11/19 16:01 Last Admin: 10/13/18 07:51 Dose: 12.5 mg Omeprazole (Prilosec) 40 mg PO 0630 [facility]; Protocol Stop: 04/11/19 09:01 Last Admin: 10/13/18 06:14 Dose: 40 mg Ondansetron HCl (Zofran) 4 mg IVP Q6HR PRN; Protocol PRN Reason: Nausea And Vomiting Stop: 04/09/19 14:12 Last Admin: 10/10/18 21:45 Dose: 4 mg Oxycodone HCl (Oxycodone Oral Conc) 5 mg SL Q6HR PRN; Protocol PRN Reason: Moderate Pain Stop: 04/09/19 19:10 Last Admin: 10/13/18 04:21 Dose: 5 mg Laboratory Tests 10/12/18 10/12/18 08:50 08:50 Hgb 10.3 L Creatinine 0.97 - Imaging and Cardiology Chest Xray: report reviewed Echo: report reviewed Cardiac cath: report reviewed - EKG Interpretation EKG results cardiology: other (Telemetry reviewed with average HR previous 12 hours noted to be 63, paced rhythm.) Consult Discharge Plan - Plan Referrals: 1 week, wound check [Other] (office to call patient at home with follow up appointment) 3-4 week, follow up [Other] (office to call patient with follow up appointment) Eliot Marrero MD [Partnered Physician] - (this is for a 3 month follow up after pacemaker Office to call patient at home with follow up appointment) Kirsty Nuno MD [Partnered Physician] - 10/18/18 1:45 pm
[2018-10-14] MEDS: *HR* Heparin 5,000 UNIT/ML VIAL SQ SCH ×2 (05:45→16:29)
[2018-10-14 06:31] LABS: Basophils # 0.1 K/mcL (0.0-0.2); Basophils % 1.1 %; Eosinophils # 0.3 K/mcL (0.0-0.6); Eosinophils % 4.3 %; Hematocrit 30.3 % (35.3-44.9); Hemoglobin 9.5 g/dL (11.5-15.4); Immature Granulocytes % 3.2 % (0-4); Lymphocytes # 0.8 K/mcL (0.6-4.6); Lymphocytes % 13.1 %; Mean Corpuscular HGB Conc 31.4 g/dL (31.6-35.5); Mean Corpuscular Hemoglobin 28.5 pg (28.0-33.3); Mean Platelet Volume 8.9 fL (9.4-12.4); Monocytes # 0.7 K/mcL (0.0-1.3); Monocytes % 11.1 %; Neutrophils # 4.2 K/mcL (1.6-8.9); Nucleated Red Blood Cells 0.8 /100 WBC (0); Platelet Count 239 K/mcL (140-400); Red Blood Count 3.33 M/mcL (3.82-4.97); Red Cell Distribution Width 15.2 % (11.5-14.5); Segmented Neutrophils % 67.2 %
[2018-10-14 06:49] LABS: BUN/Creatinine Ratio 17 (6-26); Blood Urea Nitrogen 13 mg/dL (8-23); Calcium 8.8 mg/dL (8.6-10.3); Carbon Dioxide 26 mEq/L (23-29); Chloride 102 mEq/L (98-107); Glucose 121 mg/dL (70-105); Osmolality,Calculated 287 (280-300); Potassium 3.9 mEq/L (3.5-5.1); Sodium 138 mEq/L (136-145); eGFR For Non-African Americans > 60 (> 60)
[2018-10-14] MEDS: Insulin LISPRO 300 UNITS/3 ML VIAL SQ SCH ×4 (07:45→20:52)
[2018-10-14] MEDS: Metoprolol XL (24 HR) Succ 25 MG TAB.ER.24H PO SCH (07:45)
[2018-10-14] MEDS: OXYCODONE Oral CONC 10 MG/0.5 ML ORAL.SYG SL PRN (07:46)
[2018-10-14] MEDS: Aspirin Enteric Coated 81 MG Tablet PO SCH (07:46)
--- NOTE | 2018-10-14 09:57 | Cardiology Progress Note ---
Date of Encounter: 10/14/18 Time of Encounter: 08:00 Assessment and Plan (1) ST elevation myocardial infarction (STEMI) Current Visit: Yes Status: Acute Per cardiology: -Inferior ST elevation [place] status post UMA to proximal right coronary artery. During her sheath pull with compression she developed bradycardia and long sinus pause and was given brief CPR by nursing staff. Per record she received atropine and epinephrine during that time. Due to concern for bradycardia a temporary pacer was placed. She required dopamine and levophed for hypotension. These gtt are now off. -Right groin soft with no hematoma, large ecchymosis noted. -TTE shows ejection fraction 40-45% on echo with mild right ventricular hypokinesis. -Continue aspirin 81 mg daily, Plavix 75 mg daily, high intensity statin. Beta marcy. -Denies chest pain. -Dual anti-platelet therapy uninterrupted for at least one year. -Awaiting placement in rehab facility. -Will continue to monitor. Qualifiers: Involved coronary artery: right coronary artery Qualified Code(s): I21.11 - ST elevation (STEMI) myocardial infarction involving right coronary artery (2) Bradycardia Current Visit: Yes Status: Acute Per cardiology: -Bradycardia in the setting of right coronary stenosis. Had required temporary pacemaker and s/p PPM. -Chest x-ray post device and this am without evidence of pneumothorax. -Device checked by [employer] with normal functioning pacemaker. -Will continue to monitor. (3) Acute systolic CHF (congestive heart failure), NYHA class 3 Current Visit: Yes Status: Acute Per cardiology: -Chest x-ray shows mild congestion. Repeat cxr unchanged. Patient with mild acute systolic CHF. -IV Lasix 20 mg daily initially given. No significant fluid over load on exam. -Scr improved today. -Denies SOB. -Will continue to hold lasix. Consider addition of lasix prior to discharge. -strict I and O. Fluid restriction. (4) Paroxysmal A-fib Current Visit: Yes Status: Acute Per cardiology: -H/o afib. -on bb. -Discussed with , who recommends holding anticoagulation for 1 week post pacemaker. ok to resume anticoagulation on 10/17/18 (5) Respiratory failure requiring intubation Current Visit: Yes Status: Acute Per cardiology: -Chest x-ray shows mild congestion. Patient with acute systolic CHF. Given IV diuresis. Now on hold due to Scr elevation and concern for RV dyfuction. -Now extubated to nasal cannula and weaned to room air Discussion w patient/family: The assessment and plan as outlined above was discussed with the patient who expressed understanding and agreement. All questions were answered. Thank you for involving us in the care of your patient. Please call with any questions. Discussed and reviewed with Subjective Principal diagnosis: STEMI Interval history: Patient denies chest pain today. Denies complaints. Sitting in chair. Objective Vital Signs, Last 4 Hours Temp Pulse Resp BP Pulse Ox 10/14/18 07:52 63 10/14/18 07:39 97.9 F 69 20 134/56 98 General: Conversant, No Apparent Distress HEENT: Atraumatic, Normocephaly, Mucus Membranes Moist Neck: No JVD, Normal carotid pulses Cardiac: Reg Rate and Rhythm, Normal S1 and S2, No Murmur Lungs: Normal Breath Sounds, No Wheeze, Rales, Rhonchi Neuro: Alert and responsive, No focal deficits noted Abdomen: Soft, Non-Tender Skin: No rashes noted on visualized skin, Other (Right groin access site with large area of ecchymosis, no hematoma. Left chest wall steri-strips clean, dry, intact. ) Musculoskeletal: No Chest Wall Tenderness Extremities: No Clubbing, No Cyanosis, No Edema, Normal Pulses Results 10/14/18 06:19 10/14/18 06:19 Lab Results 10/14/18 10/14/18 06:19 06:19 WBC 6.2 Hgb 9.5 L Hct 30.3 L Plt Count 239 Sodium 138 Potassium 3.9 Chloride 102 Carbon Dioxide 26 BUN 13 Creatinine 0.75 Glucose 121 H Calcium 8.8 Active Medications Acetaminophen (Tylenol) 500 mg PO Q6HR PRN PRN Reason: Mild Pain Stop: 04/07/19 20:37 Last Admin: 10/14/18 05:45 Dose: 500 mg Aspirin (Aspirin Ec) 81 mg PO DAILY [facility] Stop: 04/11/19 09:01 Last Admin: 10/14/18 07:46 Dose: 81 mg Atorvastatin Calcium (Lipitor) 80 mg PO HS [facility] Stop: 04/07/19 21:01 Last Admin: 10/13/18 19:48 Dose: 80 mg Clopidogrel Bisulfate (Plavix) 75 mg PO DAILY [facility] Stop: 04/08/19 09:01 Last Admin: 10/14/18 07:46 Dose: 75 mg Dextrose (Glucose Tablets) 28 gm PO ONCE PRN PRN Reason: Hypoglycemia Stop: 04/09/19 12:31 Dextrose (Glucose Tablets) 16 gm PO ONCE PRN PRN Reason: Hypoglycemia Stop: 04/09/19 12:31 Dextrose/Water (Dextrose 50% (Syg)) 25 ml IVP AD PRN PRN Reason: Hypoglycemia Stop: 04/09/19 12:31 Glucagon (Glucagen) 1 mg IM ONCE PRN PRN Reason: Hypoglycemia Stop: 04/09/19 12:31 Glucose (Gluctose) 15 gm PO ONCE PRN PRN Reason: Hypoglycemia Stop: 04/09/19 12:31 Glucose (Gluctose) 30 gm PO ONCE PRN PRN Reason: Hypoglycemia Stop: 04/09/19 12:31 Heparin Sodium (Porcine) (Heparin) 5,000 unit SQ Q12HCO [facility] Stop: 04/12/19 18:01 Last Admin: 10/14/18 05:45 Dose: 5,000 unit Dextrose (Dextrose 5%) 1,000 mls @ 100 mls/hr IVC .Q10H PRN PRN Reason: HYPOGLYCEMIA Stop: 04/09/19 12:31 Insulin Human Lispro (Humalog) 0 units SQ ACHS [facility]; Protocol Stop: 04/10/19 18:01 Last Admin: 10/14/18 07:45 Dose: Not Given Lisinopril (Zestril) 2.5 mg PO DAILY [facility]; Protocol Stop: 04/14/19 10:46 Last Admin: 10/14/18 07:46 Dose: 2.5 mg Metoprolol Succinate (Toprol Xl) 12.5 mg PO DAILY [facility] Stop: 04/11/19 16:01 Last Admin: 10/14/18 07:45 Dose: 12.5 mg Omeprazole (Prilosec) 40 mg PO 0630 [facility]; Protocol Stop: 04/11/19 09:01 Last Admin: 10/14/18 05:45 Dose: 40 mg Ondansetron HCl (Zofran) 4 mg IVP Q6HR PRN; Protocol PRN Reason: Nausea And Vomiting Stop: 04/09/19 14:12 Last Admin: 10/10/18 21:45 Dose: 4 mg Oxycodone HCl (Oxycodone Oral Conc) 5 mg SL Q6HR PRN; Protocol PRN Reason: Moderate Pain Stop: 04/09/19 19:10 Last Admin: 10/14/18 07:46 Dose: 5 mg - Imaging and Cardiology Chest Xray: report reviewed Echo: report reviewed Cardiac cath: report reviewed - EKG Interpretation EKG results cardiology: other (Telemetry reviewed wit average HR previous 12 hours noted to be 70, a.fib, paced.) Consult Discharge Plan - Plan Referrals: 1 week, wound check [Other] (office to call patient at home with follow up appointment) 3-4 week, follow up [Other] (office to call patient with follow up appointment) Eliot Marrero MD [Partnered Physician] - (this is for a 3 month follow up after pacemaker Office to call patient at home with follow up appointment) Kirsty Nuno MD [Partnered Physician] - 10/18/18 1:45 pm
[2018-10-15] MEDS: OXYCODONE Oral CONC 10 MG/0.5 ML ORAL.SYG SL PRN ×2 (00:24→21:08)
[2018-10-15] MEDS: *HR* Heparin 5,000 UNIT/ML VIAL SQ SCH ×2 (05:41→17:19)
[2018-10-15] MEDS: Insulin LISPRO 300 UNITS/3 ML VIAL SQ SCH ×4 (07:33→21:53)
[2018-10-15] MEDS: Metoprolol XL (24 HR) Succ 25 MG TAB.ER.24H PO SCH (07:42)
[2018-10-15] MEDS: Aspirin Enteric Coated 81 MG Tablet PO SCH (07:42)
[2018-10-15] MEDS: Ondansetron 4 MG/2 ML VIAL IVP PRN (09:42)
--- NOTE | 2018-10-15 09:45 | Cardiology Progress Note ---
Date of Encounter: 10/15/18 Time of Encounter: 08:00 Assessment and Plan (1) ST elevation myocardial infarction (STEMI) Current Visit: Yes Status: Acute Per cardiology: -Inferior ST elevation [place] status post UMA to proximal right coronary artery. During her sheath pull with compression she developed bradycardia and long sinus pause and was given brief CPR by nursing staff. Per record she received atropine and epinephrine during that time. Due to concern for bradycardia a temporary pacer was placed. She required dopamine and levophed for hypotension. These gtt are now off. -Right groin soft with no hematoma, large ecchymosis noted. -TTE shows ejection fraction 40-45% on echo with mild right ventricular hypokinesis. -Continue aspirin 81 mg daily, Plavix 75 mg daily, high intensity statin. Beta marcy. -Denies chest pain. -Dual anti-platelet therapy uninterrupted for at least one year. -Awaiting placement in rehab facility. Of note, patient would like to speak with social work tomorrow about possible discharge home with help, if no bed available in rehab facility. -Will continue to monitor. Qualifiers: Involved coronary artery: right coronary artery Qualified Code(s): I21.11 - ST elevation (STEMI) myocardial infarction involving right coronary artery (2) Bradycardia Current Visit: Yes Status: Acute Per cardiology: -Bradycardia in the setting of right coronary stenosis. Had required temporary pacemaker and s/p PPM. -Chest x-ray post device and this am without evidence of pneumothorax. -Device checked by [employer] with normal functioning pacemaker. -Will continue to monitor. (3) Acute systolic CHF (congestive heart failure), NYHA class 3 Current Visit: Yes Status: Acute Per cardiology: -Chest x-ray shows mild congestion. Repeat cxr unchanged. Patient with mild acute systolic CHF. -IV Lasix 20 mg daily initially given. No significant fluid over load on exam. -Scr improved today. -Denies SOB. -Will continue to hold lasix. Consider addition of lasix prior to discharge. -strict I and O. Fluid restriction. (4) Paroxysmal A-fib Current Visit: Yes Status: Acute Per cardiology: -H/o afib. -on bb. -Discussed with , who recommends holding anticoagulation for 1 week post pacemaker. ok to resume anticoagulation on 10/17/18 (5) Respiratory failure requiring intubation Current Visit: Yes Status: Acute Per cardiology: -Chest x-ray shows mild congestion. Patient with acute systolic CHF. Given IV diuresis. Now on hold due to Scr elevation and concern for RV dyfuction. -Now extubated to nasal cannula and weaned to room air Discussion w patient/family: The assessment and plan as outlined above was discussed with the patient who expressed understanding and agreement. All questions were answered. Thank you for involving us in the care of your patient. Please call with any questions. Discussed and reviewed with Subjective Principal diagnosis: STEMI Interval history: Patient denies chest pain today. Denies complaints. Sitting in chair. Anxious to be able to get out of hospital. Objective Vital Signs, Last 4 Hours Temp Pulse Resp BP Pulse Ox 10/15/18 07:48 62 10/15/18 07:08 97.8 F 74 20 138/56 100 General: Conversant, No Apparent Distress HEENT: Atraumatic, Normocephaly, Mucus Membranes Moist Neck: No JVD, Normal carotid pulses Cardiac: Reg Rate and Rhythm, Normal S1 and S2, No Murmur Lungs: Normal Breath Sounds, No Wheeze, Rales, Rhonchi Neuro: Alert and responsive, No focal deficits noted Abdomen: Soft, Non-Tender Skin: No rashes noted on visualized skin, Other (Left chest wall steri-strips clean, dry, intact. Right groin access site with large area of ecchymosis, no he matoma. ) Musculoskeletal: No Chest Wall Tenderness Extremities: No Clubbing, No Cyanosis, No Edema, Normal Pulses Results 10/14/18 06:19 10/14/18 06:19 Active Medications Acetaminophen (Tylenol) 500 mg PO Q6HR PRN PRN Reason: Mild Pain Stop: 04/07/19 20:37 Last Admin: 10/14/18 20:51 Dose: 500 mg Aspirin (Aspirin Ec) 81 mg PO DAILY [facility] Stop: 04/11/19 09:01 Last Admin: 10/15/18 07:42 Dose: 81 mg Atorvastatin Calcium (Lipitor) 80 mg PO HS [facility] Stop: 04/07/19 21:01 Last Admin: 10/14/18 20:51 Dose: 80 mg Clopidogrel Bisulfate (Plavix) 75 mg PO DAILY [facility] Stop: 04/08/19 09:01 Last Admin: 10/15/18 07:42 Dose: 75 mg Dextrose (Glucose Tablets) 28 gm PO ONCE PRN PRN Reason: Hypoglycemia Stop: 04/09/19 12:31 Dextrose (Glucose Tablets) 16 gm PO ONCE PRN PRN Reason: Hypoglycemia Stop: 04/09/19 12:31 Dextrose/Water (Dextrose 50% (Syg)) 25 ml IVP AD PRN PRN Reason: Hypoglycemia Stop: 04/09/19 12:31 Glucagon (Glucagen) 1 mg IM ONCE PRN PRN Reason: Hypoglycemia Stop: 04/09/19 12:31 Glucose (Gluctose) 15 gm PO ONCE PRN PRN Reason: Hypoglycemia Stop: 04/09/19 12:31 Glucose (Gluctose) 30 gm PO ONCE PRN PRN Reason: Hypoglycemia Stop: 04/09/19 12:31 Heparin Sodium (Porcine) (Heparin) 5,000 unit SQ Q12HCO [facility] Stop: 04/12/19 18:01 Last Admin: 10/15/18 05:41 Dose: 5,000 unit Dextrose (Dextrose 5%) 1,000 mls @ 100 mls/hr IVC .Q10H PRN PRN Reason: HYPOGLYCEMIA Stop: 04/09/19 12:31 Insulin Human Lispro (Humalog) 0 units SQ ACHS [facility]; Protocol Stop: 04/10/19 18:01 Last Admin: 10/15/18 07:33 Dose: Not Given Lisinopril (Zestril) 2.5 mg PO DAILY [facility]; Protocol Stop: 04/14/19 10:46 Last Admin: 10/15/18 07:42 Dose: 2.5 mg Metoprolol Succinate (Toprol Xl) 12.5 mg PO DAILY [facility] Stop: 04/11/19 16:01 Last Admin: 10/15/18 07:42 Dose: 12.5 mg Omeprazole (Prilosec) 40 mg PO 0630 [facility]; Protocol Stop: 04/11/19 09:01 Last Admin: 10/15/18 05:41 Dose: 40 mg Ondansetron HCl (Zofran) 4 mg IVP Q6HR PRN; Protocol PRN Reason: Nausea And Vomiting Stop: 04/09/19 14:12 Last Admin: 10/15/18 09:42 Dose: 4 mg Oxycodone HCl (Oxycodone Oral Conc) 5 mg SL Q6HR PRN; Protocol PRN Reason: Moderate Pain Stop: 04/09/19 19:10 Last Admin: 10/15/18 00:24 Dose: 5 mg Laboratory Tests 10/14/18 10/14/18 06:19 06:19 Hgb 9.5 L Creatinine 0.75 - Imaging and Cardiology Chest Xray: report reviewed Echo: report reviewed Cardiac cath: report reviewed - EKG Interpretation EKG results cardiology: other (Telemetry reviewed with average HR previous 12 hours noted to be 67, paced rhythm.) Consult Discharge Plan - Plan Referrals: 1 week, wound check [Other] (office to call patient at home with follow up appointment) 3-4 week, follow up [Other] (office to call patient with follow up appointment) Eliot Marrero MD [Partnered Physician] - (this is for a 3 month follow up after pacemaker Office to call patient at home with follow up appointment) Kirsty Nuno MD [Partnered Physician] - 10/18/18 1:45 pm
[2018-10-16 04:31] LABS: Basophils # 0.1 K/mcL (0.0-0.2); Basophils % 1.4 %; Eosinophils # 0.4 K/mcL (0.0-0.6); Hematocrit 31.3 % (35.3-44.9); Hemoglobin 9.7 g/dL (11.5-15.4); Immature Granulocytes % 2.9 % (0-4); Lymphocytes # 1.1 K/mcL (0.6-4.6); Lymphocytes % 18.1 %; Mean Corpuscular Hemoglobin 28.3 pg (28.0-33.3); Mean Corpuscular Volume 91.3 fL (83.0-100.0); Mean Platelet Volume 8.7 fL (9.4-12.4); Monocytes # 0.7 K/mcL (0.0-1.3); Monocytes % 12.6 %; Neutrophils # 3.5 K/mcL (1.6-8.9); Nucleated Red Blood Cells 0.3 /100 WBC (0); Platelet Count 263 K/mcL (140-400); Red Blood Count 3.43 M/mcL (3.82-4.97); Red Cell Distribution Width 15.6 % (11.5-14.5)
[2018-10-16 04:49] LABS: BUN/Creatinine Ratio 16 (6-26); Blood Urea Nitrogen 13 mg/dL (8-23); Calcium 8.6 mg/dL (8.6-10.3); Carbon Dioxide 27 mEq/L (23-29); Chloride 103 mEq/L (98-107); Glucose 141 mg/dL (70-105); Osmolality,Calculated 290 (280-300); Sodium 139 mEq/L (136-145); eGFR For Non-African Americans > 60 (> 60)
[2018-10-16] MEDS: *HR* Heparin 5,000 UNIT/ML VIAL SQ SCH ×2 (05:07→17:23)
[2018-10-16] MEDS: Metoprolol XL (24 HR) Succ 25 MG TAB.ER.24H PO SCH (07:59)
[2018-10-16] MEDS: Aspirin Enteric Coated 81 MG Tablet PO SCH (08:00)
[2018-10-16] MEDS: Insulin LISPRO 300 UNITS/3 ML VIAL SQ SCH ×4 (08:06→20:09)
--- NOTE | 2018-10-16 12:44 | Cardiology Progress Note ---
Date of Encounter: 10/16/18 Time of Encounter: 08:30 Assessment and Plan (1) ST elevation myocardial infarction (STEMI) Current Visit: Yes Status: Acute Per cardiology: -Inferior ST elevation [place] status post UMA to proximal right coronary artery. During her sheath pull with compression she developed bradycardia and long sinus pause and was given brief CPR by nursing staff. Per record she received atropine and epinephrine during that time. Due to concern for bradycardia a temporary pacer was placed. She required dopamine and levophed for hypotension. These gtt are now off. -Right groin soft with no hematoma, large ecchymosis noted. -TTE shows ejection fraction 40-45% on echo with mild right ventricular hypokinesis. -Continue aspirin 81 mg daily, Plavix 75 mg daily, high intensity statin. Beta marcy. -Denies chest pain. -Dual anti-platelet therapy uninterrupted for at least one year. -BP hypertensive today, lisinopril increased. -Awaiting placement in rehab facility. Of note, patient would like to speak with social work tomorrow about possible discharge home with help, if no bed available in rehab facility. -Will continue to monitor. Qualifiers: Involved coronary artery: right coronary artery Qualified Code(s): I21.11 - ST elevation (STEMI) myocardial infarction involving right coronary artery (2) Bradycardia Current Visit: Yes Status: Acute Per cardiology: -Bradycardia in the setting of right coronary stenosis. Had required temporary pacemaker and s/p PPM. -Chest x-ray post device and this am without evidence of pneumothorax. -Device checked by [employer] with normal functioning pacemaker. -Will continue to monitor. (3) Acute systolic CHF (congestive heart failure), NYHA class 3 Current Visit: Yes Status: Acute Per cardiology: -Chest x-ray shows mild congestion. Repeat cxr unchanged. Patient with mild acute systolic CHF. -IV Lasix 20 mg daily initially given. No significant fluid over load on exam. -Scr improved today. -Denies SOB. -Will continue to hold lasix. Consider addition of lasix prior to discharge. -strict I and O. Fluid restriction. (4) Paroxysmal A-fib Current Visit: Yes Status: Acute Per cardiology: -H/o afib. -on bb. -Discussed with , who recommends holding anticoagulation for 1 week post pacemaker. ok to resume anticoagulation on 10/17/18 (5) Respiratory failure requiring intubation Current Visit: Yes Status: Resolved Per cardiology: -Chest x-ray shows mild congestion. Patient with acute systolic CHF. Given IV diuresis. Now on hold due to Scr elevation and concern for RV dyfuction. -Now extubated to nasal cannula and weaned to room air Discussion w patient/family: The assessment and plan as outlined above was discussed with the patient who expressed understanding and agreement. All questions were answered. Thank you for involving us in the care of your patient. Please call with any questions. Discussed and reviewed with Subjective Principal diagnosis: STEMI Interval history: Patient denies chest pain today. Denies complaints. Sitting in chair. Anxious to be able to get out of hospital. Objective Vital Signs, Last 4 Hours Temp Pulse Resp BP Pulse Ox 10/16/18 11:27 97.9 F 72 18 154/64 95 10/16/18 11:15 97.9 F 72 18 154/64 95 General: Conversant, No Apparent Distress HEENT: Atraumatic, Normocephaly, Mucus Membranes Moist Neck: No JVD, Normal carotid pulses Cardiac: Reg Rate and Rhythm, Normal S1 and S2, No Murmur Lungs: Normal Breath Sounds, No Wheeze, Rales, Rhonchi Neuro: Alert and responsive, No focal deficits noted Abdomen: Soft, Non-Tender Skin: No rashes noted on visualized skin, Other (Left chest wall steri-strips clean, dry, intact. Right groin access site with large area of ecchymosis, no hematoma. ) Musculoskeletal: No Chest Wall Tenderness Extremities: No Clubbing, No Cyanosis, No Edema, Normal Pulses Results 10/16/18 04:12 10/16/18 04:12 Lab Results 10/16/18 10/16/18 04:12 04:12 WBC 5.9 Hgb 9.7 L Hct 31.3 L Plt Count 263 Sodium 139 Potassium 4.0 Chloride 103 Carbon Dioxide 27 BUN 13 Creatinine 0.79 Glucose 141 H Calcium 8.6 Active Medications Acetaminophen (Tylenol) 500 mg PO Q6HR PRN PRN Reason: Mild Pain Stop: 04/07/19 20:37 Last Admin: 10/16/18 08:05 Dose: 500 mg Aspirin (Aspirin Ec) 81 mg PO DAILY [facility] Stop: 04/11/19 09:01 Last Admin: 10/16/18 08:00 Dose: 81 mg Atorvastatin Calcium (Lipitor) 80 mg PO HS [facility] Stop: 04/07/19 21:01 Last Admin: 10/15/18 20:40 Dose: 80 mg Clopidogrel Bisulfate (Plavix) 75 mg PO DAILY [facility] Stop: 04/08/19 09:01 Last Admin: 10/16/18 07:59 Dose: 75 mg Dextrose (Glucose Tablets) 28 gm PO ONCE PRN PRN Reason: Hypoglycemia Stop: 04/09/19 12:31 Dextrose (Glucose Tablets) 16 gm PO ONCE PRN PRN Reason: Hypoglycemia Stop: 04/09/19 12:31 Dextrose/Water (Dextrose 50% (Syg)) 25 ml IVP AD PRN PRN Reason: Hypoglycemia Stop: 04/09/19 12:31 Glucagon (Glucagen) 1 mg IM ONCE PRN PRN Reason: Hypoglycemia Stop: 04/09/19 12:31 Glucose (Gluctose) 15 gm PO ONCE PRN PRN Reason: Hypoglycemia Stop: 04/09/19 12:31 Glucose (Gluctose) 30 gm PO ONCE PRN PRN Reason: Hypoglycemia Stop: 04/09/19 12:31 Heparin Sodium (Porcine) (Heparin) 5,000 unit SQ Q12HCO [facility] Stop: 04/12/19 18:01 Last Admin: 10/16/18 05:07 Dose: 5,000 unit Dextrose (Dextrose 5%) 1,000 mls @ 100 mls/hr IVC .Q10H PRN PRN Reason: HYPOGLYCEMIA Stop: 04/09/19 12:31 Insulin Human Lispro (Humalog) 0 units SQ ACHS [facility]; Protocol Stop: 04/10/19 18:01 Last Admin: 10/16/18 08:06 Dose: Not Given Lisinopril (Zestril) 5 mg PO DAILY [facility]; Protocol Stop: 04/17/19 09:01 Last Admin: 10/16/18 11:10 Dose: 2.5 mg Metoprolol Succinate (Toprol Xl) 12.5 mg PO DAILY [facility] Stop: 04/11/19 16:01 Last Admin: 10/16/18 07:59 Dose: 12.5 mg Omeprazole (Prilosec) 40 mg PO 0630 [facility]; Protocol Stop: 04/11/19 09:01 Last Admin: 10/16/18 05:08 Dose: 40 mg Ondansetron HCl (Zofran) 4 mg IVP Q6HR PRN; Protocol PRN Reason: Nausea And Vomiting Stop: 04/09/19 14:12 Last Admin: 10/15/18 09:42 Dose: 4 mg Oxycodone HCl (Oxycodone Oral Conc) 5 mg SL Q6HR PRN; Protocol PRN Reason: Moderate Pain Stop: 04/09/19 19:10 Last Admin: 10/15/18 21:08 Dose: 5 mg - Imaging and Cardiology Chest Xray: report reviewed Echo: report reviewed Cardiac cath: report reviewed - EKG Interpretation EKG results cardiology: other (Telemetry reviewed with average HR previous 12 hours noted to be 68, SR with intermittent paced rhythm. PVCs noted.) Consult Discharge Plan - Plan Referrals: 1 week, wound check [Other] (office to call patient at home with follow up appointment) 3-4 week, follow up [Other] (office to call patient with follow up appointment) Eliot Marrero MD [Partnered Physician] - (this is for a 3 month follow up after pacemaker Office to call patient at home with follow up appointment) Kirsty Nuno MD [Partnered Physician] - 10/18/18 1:45 pm
[2018-10-16] MEDS: OXYCODONE Oral CONC 10 MG/0.5 ML ORAL.SYG SL PRN (20:16)
[2018-10-17] MEDS: *HR* Heparin 5,000 UNIT/ML VIAL SQ SCH (06:35)
[2018-10-17] MEDS: Aspirin Enteric Coated 81 MG Tablet PO SCH (07:49)
[2018-10-17] MEDS: Metoprolol XL (24 HR) Succ 25 MG TAB.ER.24H PO SCH (07:49)
[2018-10-17] MEDS: Insulin LISPRO 300 UNITS/3 ML VIAL SQ SCH ×4 (07:49→21:54)
[2018-10-17] MEDS: OXYCODONE Oral CONC 10 MG/0.5 ML ORAL.SYG SL PRN ×2 (11:06→19:49)
--- NOTE | 2018-10-17 12:55 | Cardiology Progress Note ---
Date of Encounter: 10/17/18 Time of Encounter: 08:00 Assessment and Plan (1) ST elevation myocardial infarction (STEMI) Current Visit: Yes Status: Acute Per cardiology: -Inferior ST elevation [place] status post UMA to proximal right coronary artery. During her sheath pull with compression she developed bradycardia and long sinus pause and was given brief CPR by nursing staff. Per record she received atropine and epinephrine during that time. Due to concern for bradycardia a temporary pacer was placed. She required dopamine and levophed for hypotension. These gtt are now off. -Right groin soft with no hematoma, large ecchymosis noted. -TTE shows ejection fraction 40-45% on echo with mild right ventricular hypokinesis. -Continue aspirin 81 mg daily, Plavix 75 mg daily, high intensity statin. Beta marcy. -Denies chest pain. -Dual anti-platelet therapy uninterrupted for at least one year. -BP hypertensive today, lisinopril increased. -Awaiting placement in rehab facility. Of note, patient would like to speak with social work tomorrow about possible discharge home with help, if no bed available in rehab facility. -Will continue to monitor. Qualifiers: Involved coronary artery: right coronary artery Qualified Code(s): I21.11 - ST elevation (STEMI) myocardial infarction involving right coronary artery (2) Bradycardia Current Visit: Yes Status: Acute Per cardiology: -Bradycardia in the setting of right coronary stenosis. Had required temporary pacemaker and s/p PPM. -Chest x-ray post device and this am without evidence of pneumothorax. -Device checked by [employer] with normal functioning pacemaker. -Will continue to monitor. (3) Acute systolic CHF (congestive heart failure), NYHA class 3 Current Visit: Yes Status: Acute Per cardiology: -Chest x-ray shows mild congestion. Repeat cxr unchanged. Patient with mild acute systolic CHF. -IV Lasix 20 mg daily initially given. No significant fluid over load on exam. -Scr improved today. -Denies SOB. -Will continue to hold lasix. Consider addition of lasix prior to discharge. -strict I and O. Fluid restriction. (4) Paroxysmal A-fib Current Visit: Yes Status: Acute Per cardiology: -H/o afib. -on bb. -Discussed with , who recommends holding anticoagulation for 1 week post pacemaker. ok to resume anticoagulation on 10/17/18. Xarelto restarted today. (5) Respiratory failure requiring intubation Current Visit: Yes Status: Resolved Per cardiology: -Chest x-ray shows mild congestion. Patient with acute systolic CHF. Given IV diuresis. Now on hold due to Scr elevation and concern for RV dyfuction. -Now extubated to nasal cannula and weaned to room air Discussion w patient/family: The assessment and plan as outlined above was discussed with the patient who expressed understanding and agreement. All questions were answered. Thank you for involving us in the care of your patient. Please call with any questions. Discussed and reviewed with Subjective Principal diagnosis: STEMI Interval history: Patient denies chest pain today. Denies complaints. Sitting in chair. Anxious to be able to get out of hospital. Objective Vital Signs, Last 4 Hours Temp Pulse Resp BP Pulse Ox 10/17/18 11:09 97.6 F 67 18 139/49 96 General: Conversant, No Apparent Distress HEENT: Atraumatic, Normocephaly, Mucus Membranes Moist Neck: No JVD, Normal carotid pulses Cardiac: Reg Rate and Rhythm, Normal S1 and S2, No Murmur Lungs: Normal Breath Sounds, No Wheeze, Rales, Rhonchi Neuro: Alert and responsive, No focal deficits noted Abdomen: Soft, Non-Tender Skin: No rashes noted on visualized skin, Other (Left chest wall steri-strips clean, dry, intact. RIght groin access site with large area of ecchymosis, no hematoma. ) Musculoskeletal: No Chest Wall Tenderness Extremities: No Clubbing, No Cyanosis, No Edema, Normal Pulses Results 10/16/18 04:12 10/16/18 04:12 Active Medications Acetaminophen (Tylenol) 500 mg PO Q6HR PRN PRN Reason: Mild Pain Stop: 04/07/19 20:37 Last Admin: 10/17/18 09:02 Dose: 500 mg Aspirin (Aspirin Ec) 81 mg PO DAILY HEMA Stop: 04/11/19 09:01 Last Admin: 10/17/18 07:49 Dose: 81 mg Atorvastatin Calcium (Lipitor) 80 mg PO HS HEMA Stop: 04/07/19 21:01 Last Admin: 10/16/18 20:09 Dose: 80 mg Clopidogrel Bisulfate (Plavix) 75 mg PO DAILY HEMA Stop: 04/08/19 09:01 Last Admin: 10/17/18 07:49 Dose: 75 mg Dextrose (Glucose Tablets) 28 gm PO ONCE PRN PRN Reason: Hypoglycemia Stop: 04/09/19 12:31 Dextrose (Glucose Tablets) 16 gm PO ONCE PRN PRN Reason: Hypoglycemia Stop: 04/09/19 12:31 Dextrose/Water (Dextrose 50% (Syg)) 25 ml IVP AD PRN PRN Reason: Hypoglycemia Stop: 04/09/19 12:31 Glucagon (Glucagen) 1 mg IM ONCE PRN PRN Reason: Hypoglycemia Stop: 04/09/19 12:31 Glucose (Gluctose) 15 gm PO ONCE PRN PRN Reason: Hypoglycemia Stop: 04/09/19 12:31 Glucose (Gluctose) 30 gm PO ONCE PRN PRN Reason: Hypoglycemia Stop: 04/09/19 12:31 Dextrose (Dextrose 5%) 1,000 mls @ 100 mls/hr IVC .Q10H PRN PRN Reason: HYPOGLYCEMIA Stop: 04/09/19 12:31 Insulin Human Lispro (Humalog) 0 units SQ ACHS HEMA; Protocol Stop: 04/10/19 18:01 Last Admin: 10/17/18 12:03 Dose: 8 units Lisinopril (Zestril) 5 mg PO DAILY HEMA; Protocol Stop: 04/17/19 09:01 Last Admin: 10/17/18 07:49 Dose: 5 mg Metoprolol Succinate (Toprol Xl) 12.5 mg PO DAILY HEMA Stop: 04/11/19 16:01 Last Admin: 10/17/18 07:49 Dose: 12.5 mg Omeprazole (Prilosec) 40 mg PO 0630 HEMA; Protocol Stop: 04/11/19 09:01 Last Admin: 10/17/18 06:35 Dose: 40 mg Ondansetron HCl (Zofran) 4 mg IVP Q6HR PRN; Protocol PRN Reason: Nausea And Vomiting Stop: 04/09/19 14:12 Last Admin: 10/15/18 09:42 Dose: 4 mg Oxycodone HCl (Oxycodone Oral Conc) 5 mg SL Q6HR PRN; Protocol PRN Reason: Moderate Pain Stop: 04/09/19 19:10 Last Admin: 10/17/18 11:06 Dose: 5 mg Rivaroxaban (Xarelto) 20 mg PO 1700 HEMA Stop: 04/18/19 17:01 - Imaging and Cardiology Chest Xray: report reviewed Echo: report reviewed Cardiac cath: report reviewed - EKG Interpretation EKG results cardiology: other (Telemetry reviewed with average HR previous 12 hours noted to be 70, SR. Intermittent paced rhythm noted. PVCS noted.) Consult Discharge Plan - Plan Referrals: 1 week, wound check [Other] (office to call patient at home with follow up appointment) 3-4 week, follow up [Other] (office to call patient with follow up appointment) Eliot Marrero MD [Partnered Physician] - (this is for a 3 month follow up after pacemaker Office to call patient at home with follow up appointment) Kirsty Nuno MD [Partnered Physician] - 10/18/18 1:45 pm
[2018-10-17] MEDS: *HR* Rivaroxaban 10 MG TABLET PO SCH (17:41)
[2018-10-18] MEDS: Metoprolol XL (24 HR) Succ 25 MG TAB.ER.24H PO SCH (08:32)
[2018-10-18] MEDS: Aspirin Enteric Coated 81 MG Tablet PO SCH (08:32)
[2018-10-18] MEDS: Insulin LISPRO 300 UNITS/3 ML VIAL SQ SCH ×3 (08:34→17:22)
[2018-10-18 09:30] LABS: Basophils # 0.1 K/mcL (0.0-0.2); Eosinophils # 0.2 K/mcL (0.0-0.6); Eosinophils % 2.8 %; Hematocrit 35.7 % (35.3-44.9); Hemoglobin 11.1 g/dL (11.5-15.4); Lymphocytes # 0.9 K/mcL (0.6-4.6); Lymphocytes % 11.9 %; Mean Corpuscular HGB Conc 31.1 g/dL (31.6-35.5); Mean Corpuscular Hemoglobin 28.8 pg (28.0-33.3); Mean Corpuscular Volume 92.5 fL (83.0-100.0); Monocytes # 0.6 K/mcL (0.0-1.3); Monocytes % 7.8 %; Neutrophils # 5.4 K/mcL (1.6-8.9); Platelet Count 286 K/mcL (140-400); Red Blood Count 3.86 M/mcL (3.82-4.97); Red Cell Distribution Width 16.3 % (11.5-14.5); Segmented Neutrophils % 75.5 %
[2018-10-18 09:48] LABS: BUN/Creatinine Ratio 13 (6-26); Blood Urea Nitrogen 10 mg/dL (8-23); Calcium 8.8 mg/dL (8.6-10.3); Carbon Dioxide 26 mEq/L (23-29); Chloride 103 mEq/L (98-107); Glucose 240 mg/dL (70-105); Osmolality,Calculated 291 (280-300); Potassium 4.1 mEq/L (3.5-5.1); Sodium 137 mEq/L (136-145); eGFR For Non-African Americans > 60 (> 60)
[2018-10-18 11:48] VITALS: BP 129/63
--- NOTE | 2018-10-18 13:53 | Cardiology Progress Note ---
Date of Encounter: 10/18/18 Time of Encounter: 08:00 Assessment and Plan (1) ST elevation myocardial infarction (STEMI) Current Visit: Yes Status: Acute Per cardiology: -Inferior ST elevation [place] status post UMA to proximal right coronary artery. During her sheath pull with compression she developed bradycardia and long sinus pause and was given brief CPR by nursing staff. Per record she received atropine and epinephrine during that time. Due to concern for bradycardia a temporary pacer was placed. She required dopamine and levophed for hypotension. These gtt are now off. -Right groin soft with no hematoma, large ecchymosis noted. -TTE shows ejection fraction 40-45% on echo with mild right ventricular hypokinesis. -Continue aspirin 81 mg daily, Plavix 75 mg daily, high intensity statin. Beta marcy. -Denies chest pain. -Dual anti-platelet therapy uninterrupted for at least one year. -Awaiting placement in rehab facility. -Will continue to monitor. Qualifiers: Involved coronary artery: right coronary artery Qualified Code(s): I21.11 - ST elevation (STEMI) myocardial infarction involving right coronary artery (2) Bradycardia Current Visit: Yes Status: Acute Per cardiology: -Bradycardia in the setting of right coronary stenosis. Had required temporary pacemaker and s/p PPM. -Chest x-ray post device and this am without evidence of pneumothorax. -Device checked by [employer] with normal functioning pacemaker. -Will continue to monitor. (3) Acute systolic CHF (congestive heart failure), NYHA class 3 Current Visit: Yes Status: Acute Per cardiology: -Chest x-ray shows mild congestion. Repeat cxr unchanged. Patient with mild acute systolic CHF. -IV Lasix 20 mg daily initially given. No significant fluid over load on exam. -Scr improved today. -Denies SOB. -Will continue to hold lasix. Consider addition of lasix prior to discharge. -strict I and O. Fluid restriction. (4) Paroxysmal A-fib Current Visit: Yes Status: Acute Per cardiology: -H/o afib. -on bb. -Discussed with , who recommends holding anticoagulation for 1 week post pacemaker. ok to resume anticoagulation on 10/17/18. Xarelto restarted. (5) Respiratory failure requiring intubation Current Visit: Yes Status: Resolved Per cardiology: -Chest x-ray shows mild congestion. Patient with acute systolic CHF. Given IV diuresis. Now on hold due to Scr elevation and concern for RV dyfuction. -Now extubated to nasal cannula and weaned to room air Discussion w patient/family: The assessment and plan as outlined above was discussed with the patient who expressed understanding and agreement. All questions were answered. Thank you for involving us in the care of your patient. Please call with any questions. Discussed and reviewed with Subjective Principal diagnosis: STEMI Interval history: Patient denies chest pain today. Denies complaints. Sitting in chair. Anxious to be able to get out of hospital. Objective Vital Signs, Last 4 Hours Temp Pulse Resp BP Pulse Ox 10/18/18 11:45 97.7 F 73 17 129/63 96 General: Conversant, No Apparent Distress HEENT: Atraumatic, Normocephaly, Mucus Membranes Moist Neck: No JVD, Normal carotid pulses Cardiac: Reg Rate and Rhythm, Normal S1 and S2, No Murmur Lungs: Normal Breath Sounds, No Wheeze, Rales, Rhonchi Neuro: Alert and responsive, No focal deficits noted Abdomen: Soft, Non-Tender Skin: No rashes noted on visualized skin, Other (Left chest wall steri-strips clean, dry, intact. Right groin access site with large area of ecchymosis, no hematoma. ) Musculoskeletal: No Chest Wall Tenderness Extremities: No Clubbing, No Cyanosis, No Edema, Normal Pulses Results 10/18/18 08:53 10/18/18 08:53 Lab Results 10/18/18 10/18/18 08:53 08:53 WBC 7.2 Hgb 11.1 L Hct 35.7 Plt Count 286 Sodium 137 Potassium 4.1 Chloride 103 Carbon Dioxide 26 BUN 10 Creatinine 0.80 Glucose 240 H Calcium 8.8 - Imaging and Cardiology Chest Xray: report reviewed Echo: report reviewed Cardiac cath: report reviewed - EKG Interpretation EKG results cardiology: other (Telemetry reviewed with average HR previous 12 hours noted to be 72, SR. Intermittent paced rhythm. PVCs noted.) Consult Discharge Plan - Plan Referrals: 1 week, wound check [Other] (office to call patient at home with follow up appointment) 3-4 week, follow up [Other] (office to call patient with follow up appointment) Eliot Marrero MD [Partnered Physician] - (this is for a 3 month follow up after pacemaker Office to call patient at home with follow up appointment) Kirsty Nuno MD [Partnered Physician] -
--- NOTE | 2018-10-18 15:01 | Discharge Summary ---
- NOTES TO OUTPATIENT PROVIDER Notes to Outpatient Provider: Admitted for STEMI. Also underwent permanent pacemaker placement. Date of Encounter: 10/18/18 Time of Encounter: 14:57 - Discharge Diagnosis (1) ST elevation myocardial infarction (STEMI) Priority: Primary Status: Acute Comments: Admitted as STEMI Qualifiers: Involved coronary artery: right coronary artery Qualified Code(s): I21.11 - ST elevation (STEMI) myocardial infarction involving right coronary artery (2) Bradycardia Priority: Secondary Status: Acute Comments: Bradycardia noted, underwent PPM. (3) Acute systolic CHF (congestive heart failure), NYHA class 3 Priority: Secondary Status: Resolved Comments: Resolved. (4) Paroxysmal A-fib Priority: Secondary Status: Chronic Comments: Known PAF. (5) Respiratory failure requiring intubation Priority: Secondary Status: Resolved Comments: Resolved. - Hospital Course Hospital course: Ms. Jeter is a 73 year old female who was admitted to [facility] as STEMI. 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 Post [facility], patient developed cardiac arrest requiring CPR, atropine, and epinephrine. Patient was noted to be bradycardic and temporary transvenous pacemaker was inserted. Patient has respiratory failure requiring intubation. Patient was subsequently extubated. Permanent pacemaker was placed. Patient has been stable for discharge for days, waiting on bed assignment. WIth recent PCI, recommend dual anti-platelet therapy uninterrupted for at least one year with asa and plavix, unless otherwise instructed by cardiology. Right groin access site with large area of ecchymosis, no hematoma. Known history of PAF, on BB and HR controlled. ON xarelto for anticoagulation. Of note, now on triple therapy. Monitor closely for any signs of bleeding. Can consider discontinuation of ASA after one month. Patient underwent permanent pacemaker. Has steri-strips to left chest wall. Steri-strips clean, dry, intact. Device check was normal. No pneumothorax noted on chest x-ray post device and morning after. Patient is being prepped for discharge to rehab facility in stable condition. Patient is hopeful to be able to go home soon. Patient will follow with [facility], follow up set. - Time Spent with Patient Total time spent providing and/or coordinating discharge services: Less than 30 minutes - Discharge Medications Prescriptions: New Clopidogrel [Plavix] 75 mg PO DAILY tablet Atorvastatin [Lipitor] 80 mg PO HS tablet Lisinopril [Zestril] 10 mg PO DAILY tablet Metoprolol XL (24 HR) Succ [Toprol Xl] 12.5 mg PO DAILY tab.er.24h Acetaminophen [Tylenol] 500 mg PO Q6HR PRN tablet PRN Reason: Mild Pain Continue Canagliflozin [Invokana] 300 mg PO QAM Insulin Glargine,Hum.rec.anlog [Basaglar Kwikpen U-100] 15 unit SQ DAILY Omeprazole [PriLOSEC] 40 mg PO DAILY Rivaroxaban [Xarelto] 20 mg PO DAILY Sitagliptin Phos/Metformin HCl [Janumet Xr 50-1,000 mg Tablet] 1 tab PO BID Aspirin [Lo-Dose Aspirin EC] 81 mg PO DAILY Discontinued Meloxicam 30 mg PO DAILY Potassium Chloride [K-Tab ER] 10 meq PO BID Rosuvastatin Calcium [Crestor] 10 mg PO DAILY Home Medications: Aspirin [Lo-Dose Aspirin EC] 81 mg PO DAILY 10/08/18 [History] Canagliflozin [Invokana] 300 mg PO QAM 10/08/18 [History] Insulin Glargine,Hum.rec.anlog [Basaglar Kwikpen U-100] 15 unit SQ DAILY 10/08/18 [History] Omeprazole [PriLOSEC] 40 mg PO DAILY 10/08/18 [History] Rivaroxaban [Xarelto] 20 mg PO DAILY 10/08/18 [History] Sitagliptin Phos/Metformin HCl [Janumet Xr 50-1,000 mg Tablet] 1 tab PO BID 10/08/18 [History] Acetaminophen [Tylenol] 500 mg PO Q6HR PRN tablet 10/18/18 [Rx] Atorvastatin [Lipitor] 80 mg PO HS tablet 10/18/18 [Rx] Clopidogrel [Plavix] 75 mg PO DAILY tablet 10/18/18 [Rx] Lisinopril [Zestril] 10 mg PO DAILY tablet 10/18/18 [Rx] Metoprolol XL (24 HR) Succ [Toprol Xl] 12.5 mg PO DAILY tab.er.24h 10/18/18 [Rx] Allergies/Adverse Reactions: Allergy/AdvReac Type Severity Reaction Status Date / Time doxycycline Allergy See Verified 10/06/18 18:12 Comments Date of admission: 10/06/18 19:41 Primary care physician: PCP NONE Consults: 10/06/18 20:37 Consult to Cardiac Rehabilitation-Phase1 [CONS] Routine Comment: Reason for Consult: AMI Call Completed: Yes Consult to Nurse Navigator [CONS] Routine Comment: 10/07/18 06:02 Consult to Critical Care [CONS] Routine Consulting Provider: [facility] Reason for Consult: critical care Call Completed: No 10/07/18 08:15 Consult to Palliative Care [CONS] Routine Comment: Consulting Provider: [facility] Reason for Consult: advanced directives at home, code status, goals of care, how invasive/aggressive the pt would wish to be for care Call Completed: Yes 10/09/18 07:53 Consult to Occupational Therapy [CONS] Routine Comment: Evaluate, develop and implement POC Reason for Consult: ptot eval Does patient have active BEDREST order?: No Is patient medically & hemodynamically stable?: Yes Patient assessed for mobility or mobilized this visit?: No Consult to Physical Therapy [CONS] Routine Comment: Evaluate, develop and implement POC Reason for Consult: ptot eval Does patient have active BEDREST order?: No Is patient medically & hemodynamically stable?: Yes Patient assessed for mobility or mobilized this visit?: No Discharging clinician: Milagro Forrester Anticipated date of discharge: 10/18/18 Physical Examination Vital Signs, Last 4 Hours Temp Pulse Resp BP Pulse Ox 10/18/18 11:45 97.7 F 73 17 129/63 96 General: Conversant, No Apparent Distress HEENT: Atraumatic, Normocephaly, Mucus Membranes Moist Neck: No JVD, Normal carotid pulses Cardiac: Reg Rate and Rhythm, Normal S1 and S2, No Murmur Lungs: Normal Breath Sounds, No Wheeze, Rales, Rhonchi Neuro: Alert and responsive, No focal deficits noted Abdomen: Soft, Non-Tender Skin: No rashes noted on visualized skin, Other (Left chest wall steri-strips clean, dry, intact. Right groin access site with large area of ecchymosis, no hematoma. ) Musculoskeletal: No Chest Wall Tenderness Extremities: No Clubbing, No Cyanosis, No Edema, Normal Pulses - Patient Status Disposition: Transfer Inpatient Rehab Fac Condition: Fair Functional capacity at discharge: uses cane/walker (With assistance.) Overall status at discharge: patient is progressing back to baseline - Discharge Instructions Follow Up With: 1 week, wound check [Other] (office to call patient at home with follow up appointment) 3-4 week, follow up [Other] (office to call patient with follow up appointment) Eliot Marrero MD [Partnered Physician] - (this is for a 3 month follow up after pacemaker Office to call patient at home with follow up appointment) Kirsty Nuno MD [Partnered Physician] - Additional Instructions: RISK FACTORS: STOP SMOKING: If you smoke, STOP. Smoking or tobacco use significantly increases your risk of heart disease because nicotine causes the arteries to narrow or constrict. It also causes fats to stick to the artery. Your chances of having a heart attack are greatly increased if you continue to smoke. For more information, call the education line for smoking cessation 5-776-JZSWHBB EAT A LOW FAT/CHOLESTEROL/SODIUM DIET: This diet may help reduce your chances of having a heart attack. LIFTING: Avoid lifting anything more than 10 pounds for 5-7 days Prior to straining, laughing, sneezing and/or coughing, apply manual pressure directly over insertion site. ACTIVITY: You may walk or climb stairs as tolerated You can resume sexual activity as tolerated In general, you are encouraged to engage in a minimum of 30 minutes or more of moderate intensity physical activity, such as brisk walking, daily or at least 3-4 times weekly BATHING Do not submerge the site into water (bath tub, hot tub, swimming pool) for 1 week. This can be a source for infection into the blood stream. You may shower after 24 hours SITE CARE: After 24 hours, you may remove the dressing and leave the site open to air. Keep the site clean and dry. Clean gently and pat dry. You can expect bruising and tenderness that gradually resolve within a week or two. Return to work as instructed per your physician Resume driving as instructed per physician Keep all scheduled follow up appointments Resume medications as instructed IMPORTANT: If prescribed a Platelet Aggregation Inhibitor such as, Plavix, Brilinta or Effient: Duration of therapy is minimum one year These medications are often used in combination with Aspirin in prevention of future heart attacks Never discontinue unless consult with your Resident Doctor STROKE (CVA) Risk factors for a stroke are: Age, cigarette smoking, diabetes, excessive alcohol consumption, family history, high blood pressure, overweight, physical inactivity, prior stroke, heart attack, diagnosis of carotid artery stenosis or other artery disease. Warning signs: Sudden numbness or weakness of the face, arm or leg; especially on one side of the body, sudden confusion, trouble speaking or understanding, sudden trouble seeing in one or both eyes, sudden trouble walking, dizziness, loss of balance or coordination, sudden severe headache with no cause. Call 911 or go to the Emergency Room. CONGESTIVE HEART FAILURE: If you have been diagnosed with Congestive Heart Failure (CHF) and your symptoms return, make an appointment with your physician Weigh yourself daily. Notify your physician if you have a weight gain of two or more pounds in one day or five or more pounds in one week. If you experience any difficulty breathing, please call 911 BLEEDING: Although the risk of bleeding is minimal, it can happen. If you have any bleedi ng from the site, apply firm pressure above the puncture site for 10-15 minutes. If the bleeding does not stop, continue manual pressure and call 911 Contact your physician if: You develop a fever greater than 101 degrees Fahrenheit Your site becomes reddened or has any drainage You have an increase in pain or burning at the site or if a large knot forms at the site. If you experience chest pain, shortness of breath, dizziness, or extreme tiredness, stop the activity and rest. Please notify your physicians office if you experience any of these symptoms and they are not relieved by rest please call 911! ACTIVITY: Moderate activity for the next 7 days. No lifting more than 5 pounds (gallon of milk) for 4-6 weeks. Avoid lifting your arm on the same side as the device for 4 weeks. BATHING /SHOWERING: Do not remove the large bandage over the site for 2 days. Do not allow the device to get wet for 7-10 days. You may bathe/shower, but do not use soap and water on the site. When bathing, keep the site dry by covering with Saran wrap or a towel. WOUND CARE: The white steri-strips will start to peel away and come off after 14 days, or your doctor will remove them after [address] into or on top of the incision. Do not use cotton swabs. Do not use any antibiotic ointment or Vitamin E on the site. REMINDERS: You may use electrical devices, such as, microwaves, hair dryers, electric razors, electric blankets, etc. as long as they are in good condition and kept 6-8 inches away from the device. It is recommended to use cell phones on the opposite side of your device. Notify security personnel at the airport that you have a device before you go through airport security screening. When at places with security monitors, such as a grocery store, do not linger near these monitors. It is fine to walk past them in a normal manner. Refer to your owners manual for more specific directions. CARRY YOUR PACEMAKER/ICD CARD WITH YOU AT ALL TIMES Return to work as instructed per physician Resume driving as instructed per physician Keep all scheduled follow up appointments Resume medications as instructed Contact [facility] ( ) if: You develop excessive bleeding from insertion or wound site not controlled by applying pressure You develop a fever greater than 101 degrees Fahrenheit Your incision becomes reddened at or around the site Your incision develops yellowish or greenish drainage or development of white pimple-like bumps You experience excessive pain You develop swelling in your ankles You experience muscle switching You develop excessive hiccupping If you experience chest pain, shortness of breath, dizziness, or extreme ti redness, stop the activity and rest. Please notify [facility] office if you experience any of these symptoms and they are not relieved by rest please call 911! - Diet and Activity Activity: increase activity as tolerated (Follow restrictions as above. ) Diet: diabetic diet, low fat, low cholesterol, low salt diet
--- NOTE | 2018-10-18 15:14 | Physician Discharge Referral ---
ExtendedCare Referral Info Transfer To: [facility] Provider in Charge: Rehab facility Provider in Charge after Transfer: PCP Institutional Level of Care: Intermediate - Diagnosis (1) ST elevation myocardial infarction (STEMI) Priority: Primary Status: Acute (2) Bradycardia Priority: Secondary Status: Acute (3) Acute systolic CHF (congestive heart failure), NYHA class 3 Priority: Secondary Status: Resolved (4) Paroxysmal A-fib Priority: Secondary Status: Chronic (5) Respiratory failure requiring intubation Priority: Secondary Status: Resolved - Transfer Medications Home Medications: Aspirin [Lo-Dose Aspirin EC] 81 mg PO DAILY 10/08/18 [History] Canagliflozin [Invokana] 300 mg PO QAM 10/08/18 [History] Insulin Glargine,Hum.rec.anlog [Basaglar Kwikpen U-100] 15 unit SQ DAILY 10/08/18 [History] Omeprazole [PriLOSEC] 40 mg PO DAILY 10/08/18 [History] Rivaroxaban [Xarelto] 20 mg PO DAILY 10/08/18 [History] Sitagliptin Phos/Metformin HCl [Janumet Xr 50-1,000 mg Tablet] 1 tab PO BID 10/08/18 [History] Acetaminophen [Tylenol] 500 mg PO Q6HR PRN tablet 10/18/18 [Rx] Atorvastatin [Lipitor] 80 mg PO HS tablet 10/18/18 [Rx] Clopidogrel [Plavix] 75 mg PO DAILY tablet 10/18/18 [Rx] Lisinopril [Zestril] 10 mg PO DAILY tablet 10/18/18 [Rx] Metoprolol XL (24 HR) Succ [Toprol Xl] 12.5 mg PO DAILY tab.er.24h 10/18/18 [Rx] Allergies/Adverse Reactions: Allergy/AdvReac Type Severity Reaction Status Date / Time doxycycline Allergy See Verified 10/06/18 18:12 Comments - Respiratory Orders Oxygen / L per min (PRN) Smoking Cessation: Smoking cessation has been advised. For more information, call the [employer] Tobacco Quit Line at 3-703-QCTB-NOW. - Ancillary Orders May use pressure relief devices daily prn - Advance Directives Living Will: No Power of Degree Clerk for Health Care: No ([facility]) Code Status: Full Code - Mobility Orders Chair, Ambulate (With assistance) - Rehabiliation Orders Rehab Potential: Fair Rehab Orders: Evaluation for Physical Therapy, Evaluation for Occupational Therapy - Treatments Skin tear care topically daily PRN per policy, May check for fecal impaction rectally daily PRN - Diet Orders No Added Salt (YUN), Cardiac (Diabetic) CERTIFICATION: I certify that the transfer of the above named patient to an Extended Care Facility is necessary for the continuing treatment of the diagnosis listed. The above information is true and accurate reflection of patient's current condition. Confidential - Redisclosure prohibited without a patient's written consent.
[2018-10-18] MEDS: *HR* Rivaroxaban 10 MG TABLET PO SCH (17:22)
== END 2018-10-18 17:40 | DRG 228 ==
LOC: EMEROOARM 17:50 → ICNU 19:00 → 2NNU 10-11 11:08
PROVIDERS: ADMIT Internal Medicine Interventional Cardiology; ATTEND Internal Medicine Interventional Cardiology